=== PATIENT | female | born 1935 | race African-American/Black ===

== ENCOUNTER 2018-08-01 19:45 | Emergency (ER) | payer OTHER, BC ==
[2018-08-01 20:00] VITALS: BP 143/69
[2018-08-01] MEDS ORDERED: Albuterol/Ipratropium NEB.SOL* Albuterol 2.5 MG/Ipratropium 0.5 MG 3 ML INH ONE (20:10)
--- NOTE | 2018-08-01 20:31 | UC ---
Shortness of Breath HPI - HPI Summary HPI Summary: 82-year-old female with history of atrial fibrillation and parathyroid disease presents with dyspnea since yesterday. She states that her shortness of breath gets worse with exertion and her daughter has noticed some wheezing. She denies any significant cough or fever. She has had peripheral edema as of late. She is new to the area and has had her most recent medical care in [place] with her parathyroid surgery at [facility]. He does give a history for allergies and possibly "a touch of asthma." She denies any COPD. 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 - Allergy/Home Medications Allergies/Adverse Reactions: Allergies Allergy/AdvReac Type Severity Reaction Status Date / Time No Known Allergies Allergy Verified 08/01/18 20:00 Home Medications: Home Medications Amlodipine Besylate [Norvasc] 10 mg PO DAILY 08/01/18 [History Confirmed ] Aspirin 81 mg CHEW TAB* [Aspirin Low Dose TAB*] 81 mg PO DAILY 08/01/18 [ History Confirmed 08/01/18] Atorvastatin* [Lipitor*] 40 mg PO QPM 08/01/18 [History Confirmed 08/01/18] Calcium Carbonate CHEW TAB* [Tums*] 1,000 mg PO BID PRN 08/01/18 [History Confirmed 08/01/18] Metoprolol Tartrate TAB* [Lopressor TAB*] 25 mg PO BID 08/01/18 [History Confirmed 08/01/18] hydrALAZINE TAB* [Apresoline TAB*] 25 mg PO TID 08/01/18 [History Confirmed 08/14] PMH/Surg Hx/FS Hx/Imm Hx Endocrine History: Thyroid Disease Cardiovascular History: Cardiac Disease, Atrial Fibrillation Respiratory History: Asthma - Surgical History Surgical History: Yes Surgery Procedure, Year, and Place: hernia repair - Family History Known Family History: Positive: Non-Contributory - Social History Occupation: Retired Lives: With Family Alcohol Use: None Substance Use Type: None Smoking Status (MU): Never Smoked Tobacco Review of Systems All Other Systems Reviewed And Are Negative: Yes Constitutional: Negative: Fever ENT: Positive: Negative Respiratory: Positive: Shortness Of Breath Cardiovascular: Negative: Palpitations, Chest Pain Gastrointestinal: Positive: Negative Musculoskeletal: Positive: Edema Neurological: Positive: Negative Physical Exam Triage Information Reviewed: Yes Appearance: Other: - mild distress Vital Signs: Initial Vital Signs Temp 98.3 F 08/01/18 19:53 Pulse 88 08/01/18 19:53 Resp 28 08/01/18 19:53 BP 143/69 08/01/18 19:53 Pulse Ox 94 08/01/18 19:53 Vital Signs Reviewed: Yes Eyes: Positive: Conjunctiva Clear ENT: Positive: Hearing grossly normal, Pharynx normal. Negative: Nasal drainage Neck: Positive: Nontender, No Lymphadenopathy, Other: - no JVD Respiratory: Positive: Other: - tachypnea, diminished R base Cardiovascular: Positive: Other: - irregularly irregular, no murmur. Heart sounds heart throughout the chest but not muffled. Abdomen Description: Positive: Nontender, Soft Musculoskeletal: Positive: ROM Intact, Edema @ - 2+ shayan LE Neurological Exam: Normal Psychological Exam: Normal Skin Exam: Normal Diagnostics - Radiology CXR Radiology Interpretation Completed By: ED Physician - significant cardiomegaly and R basilar mass/infiltrate Shortness of Breath Dx - Course Course Of Treatment: Patient with tachypnea and decreased right basilar heart sounds. X-ray shows cardiomegaly and mass versus infiltrate in the right chest. Patient will require care beyond the urgent care and will be sent to the emergency department they wish to travel by private vehicle. I spoke with the ER attending and the charge nurse who are expecting the patient. - Differential Dx/Diagnosis Differential Diagnosis/HQI/PQRI: CHF, COPD Exacerbation, [place], Pneumonia, Pneumothorax, Pulmonary Embolism, Pulmonary Edema Provider Diagnosis: Dyspnea, Cardiomegaly, Chest mass - Physician Notification/Consults Discussed Patient Care With: Darrel Ho - accepts care to ED. Charge nurse Machelle brewer. Discharge - Sign-Out/Discharge Documenting (check all that apply): Patient Departure All imaging exams completed and their final reports reviewed: No - Discharge Plan Condition: Stable Disposition: HOME-RECOMMEND TO ED Patient Education Materials: Dyspnea (ED) Referrals: No Primary Care Phys,NOPCP [Primary Care Provider] - Additional Instructions: Go directly to the ER. Dr Ho is expecting you. - Billing Disposition and Condition Condition: STABLE Disposition: Home-Recommend to ED
--- NOTE | 2018-08-02 10:13 | UC ---
- Progress Note Progress Note: CXR: IMPRESSION: 1. ENLARGED CARDIAC SILHOUETTE WHICH CORRELATES WITH CARDIOMEGALY AND A PERICARDIAL EFFUSION ON THE CT STUDY. 2. SMALL BILATERAL PLEURAL EFFUSIONS. No change in plan of care. Pt went to ED and was admitted Course/Dx - Diagnoses Provider Diagnoses: Dyspnea, Cardiomegaly, Chest mass Discharge - Sign-Out/Discharge Documenting (check all that apply): Post-Discharge Follow Up All imaging exams completed and their final reports reviewed: Yes - Discharge Plan Condition: Stable Disposition: HOME-RECOMMEND TO ED Patient Education Materials: Dyspnea (ED) Referrals: No Primary Care Phys,NOPCP [Primary Care Provider] - Additional Instructions: Go directly to the ER. Dr Ho is expecting you. - Billing Disposition and Condition Condition: STABLE Disposition: Home-Recommend to ED
== END 2018-08-01 20:28 | disposition home health service (06) ==
LOC: EDBD → UCEAST 19:45
DX: R06.00 Dyspnea, unspecified (principal); I51.7 Cardiomegaly; R22.2 Localized swelling, mass and lump, trunk; Z79.82 Long term (current) use of aspirin; I31.3 Pericardial effusion (noninflammatory); I48.91 Unspecified atrial fibrillation; E03.9 Hypothyroidism, unspecified; J90 Pleural effusion, not elsewhere classified
CPT/HCPCS: 71046; 99202; G0463

== ENCOUNTER 2018-08-01 20:52 | Observation (INO) | payer BC, OTHER ==
[2018-08-01 22:04] LABS: ABS Eosinophils 0.1 10^3/ul (0-0.6); ABS Monocytes 0.5 10^3/ul (0-0.8); ABS Neutrophils 3.8 10^3/ul (1.5-7.7); Eosinophil % 1.9 %; Hematocrit 38 % (35-47); Hemoglobin 12.1 g/dL (12.0-16.0); Lymphocyte % 18.4 %; Mean Corpuscular HGB Conc 32 g/dL (31-36); Mean Corpuscular Hemoglobin 26 pg (27-31); Mean Corpuscular Volume 81 fL (80-97); Mean Platelet Volume 7.4 fL (7.4-10.4); Platelet Count 214 10^3/uL (150-450); Red Blood Count 4.73 10^6 /uL (3.70-4.87); Red Cell Distribution Width 18 % (10-15); White Blood Count 5.4 10^3/uL (3.5-10.8)
[2018-08-01 22:12] LABS: Albumin 4.4 g/dL (3.2-5.2); Albumin/Globulin Ratio 1.4 (1-3); BUN/Creatinine Ratio 20.2 (8-20); Calcium 10.7 mg/dL (8.6-10.3); EGFR African American 61.1 (>60); EGFR Non-African American 50.5 (>60); Globulin 3.1 g/dL (2-4); Potassium 3.8 mmol/L (3.5-5.0); Total Bilirubin 1.2 mg/dL (0.2-1.0); Total Protein 7.5 g/dL (6.4-8.9)
[2018-08-01 22:14] LABS: Troponin I 0.01 ng/mL (<0.04)
[2018-08-01 22:58] LABS: C Reactive Protein 1.64 mg/L (<8.01)
[2018-08-01] MEDS ORDERED: Iodixanol* (CONTRAST) 320 MG/ML 100 ML SDV IV ONE (23:08)
--- NOTE | 2018-08-01 23:08 | ED ---
Shortness of Breath - HPI Summary HPI Summary: 82-year-old female presents with shortness of breath since yesterday. She states that is intermittent. Symptoms are worse when she ambulates. She does have a history of A. fib and was on Coumadin until she had surgery in June on her parathyroid. She never restarted the Coumadin. She denies any palpitations. No chest pain. She states she has been having occasional wheezing. She has been using her inhaler with some relief. She states that she has chronic edema in her legs are unchanged. She wears compression socks. She denies any increase weight. Shortness of breath does not change with positional changes. She states she's never had this before. Denies any cough. - History of Current Complaint Chief Complaint: EDShortnessOfBreath Time Seen by Provider: 08/01/18 22:37 - Allergy/Home Medications Allergies/Adverse Reactions: Allergies Allergy/AdvReac Type Severity Reaction Status Date / Time Tetracyclines Allergy Unknown Verified 08/01/18 20:59 Reaction Details PMH/Surg Hx/FS Hx/Imm Hx Endocrine/Hematology History: 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 Denies: Hx Diabetes Cardiovascular History: Reports: Hx Hypertension Respiratory History: Denies: Hx Chronic Obstructive Pulmonary Disease (COPD) - Surgical History Surgery Procedure, Year, and Place: hernia repair Infectious Disease History: No Infectious Disease History: Denies: Hx Hepatitis, Traveled Outside the [place] in Last 30 Days - Family History Known Family History: Positive: Non-Contributory - Social History Alcohol Use: None Substance Use Type: Reports: None Smoking Status (MU): Never Smoked Tobacco Review of Systems Negative: Fever Negative: Chest Pain Positive: Shortness Of Breath. Negative: Cough Negative: Abdominal Pain All Other Systems Reviewed And Are Negative: Yes Physical Exam Triage Information Reviewed: Yes Vital Signs On Initial Exam: Initial Vitals Temp Pulse Resp BP Pulse Ox 98.0 F 90 16 132/74 95 08/01/18 20:55 08/01/18 20:55 08/01/18 20:55 08/01/18 20:55 08/01/18 20:55 Vital Signs Reviewed: Yes Appearance: Positive: Well-Appearing Skin: Positive: Warm, Dry Head/Face: Positive: Normal Head/Face Inspection Eyes: Positive: Normal, Conjunctiva Clear ENT: Positive: Pharynx normal Respiratory/Lung Sounds: Positive: Clear to Auscultation, Breath Sounds Present Cardiovascular: Positive: Normal, RRR Abdomen Description: Positive: Nontender, Soft Bowel Sounds: Positive: Present Musculoskeletal: Positive: Normal Neurological: Positive: Normal Psychiatric: Positive: Normal Diagnostics - Vital Signs Vital Signs Temp Pulse Resp BP Pulse Ox 08/01/18 20:55 98.0 F 90 16 132/74 95 - Laboratory Lab Results: Lab Results 08/01/18 08/01/18 08/01/18 Range/Units 21:44 21:44 21:44 WBC 5.4 (3.5-10.8) 10^3/uL RBC 4.73 (3.70-4.87) 10^6 /uL Hgb 12.1 (12.0-16.0) g/dL Hct 38 (35-47) % MCV 81 (80-97) fL MCH 26 L (27-31) pg MCHC 32 (31-36) g/dL RDW 18 H (10-15) % Plt Count 214 (150-450) 10^3/uL MPV 7.4 (7.4-10.4) fL Neut % (Auto) 69.1 % Lymph % (Auto) 18.4 % [place] % (Auto) 9.7 % Eos % (Auto) 1.9 % Baso % (Auto) 0.9 % Absolute Neuts (auto) 3.8 (1.5-7.7) 10^3/ul Absolute Lymphs (auto) 1.0 (1.0-4.8) 10^3/ul Absolute Monos (auto) 0.5 (0-0.8) 10^3/ul Absolute Eos (auto) 0.1 (0-0.6) 10^3/ul Absolute Basos (auto) 0.0 (0-0.2) 10^3/ul Absolute Nucleated RBC 0.0 10^3/ul Nucleated RBC % 0.0 D-Dimer, Quantitative (Less Than 230) ng/mL Sodium 141 (135-145) mmol/L Potassium 3.8 (3.5-5.0) mmol/L Chloride 106 (101-111) mmol/L Carbon Dioxide 28 (22-32) mmol/L Anion Gap 7 (2-11) mmol/L BUN 21 (6-24) mg/dL Creatinine 1.04 H (0.51-0.95) mg/dL Est GFR ( Amer) 61.1 (>60) Est GFR (Non-Af Amer) 50.5 (>60) BUN/Creatinine Ratio 20.2 H (8-20) Glucose 96 (70-100) mg/dL Lactic Acid 1.4 (0.5-2.0) mmol/L Calcium 10.7 H (8.6-10.3) mg/dL Total Bilirubin 1.20 H (0.2-1.0) mg/dL AST 26 (13-39) U/L ALT 22 (7-52) U/L Alkaline Phosphatase 96 (34-104) U/L Troponin I 0.01 (<0.04) ng/mL C-Reactive Protein 1.64 (<8.01) mg/L B-Natriuretic Peptide (<=100) pg/mL Total Protein 7.5 (6.4-8.9) g/dL Albumin 4.4 (3.2-5.2) g/dL Globulin 3.1 (2-4) g/dL Albumin/Globulin Ratio 1.4 (1-3) 08/01/18 08/01/18 Range/Units 21:44 21:44 WBC (3.5-10.8) 10^3/uL RBC (3.70-4.87) 10^6 /uL Hgb (12.0-16.0) g/dL Hct (35-47) % MCV (80-97) fL MCH (27-31) pg MCHC (31-36) g/dL RDW (10-15) % Plt Count (150-450) 10^3/uL MPV (7.4-10.4) fL Neut % (Auto) % Lymph % (Auto) % [place] % (Auto) % Eos % (Auto) % Baso % (Auto) % Absolute Neuts (auto) (1.5-7.7) 10^3/ul Absolute Lymphs (auto) (1.0-4.8) 10^3/ul Absolute Monos (auto) (0-0.8) 10^3/ul Absolute Eos (auto) (0-0.6) 10^3/ul Absolute Basos (auto) (0-0.2) 10^3/ul Absolute Nucleated RBC 10^3/ul Nucleated RBC % D-Dimer, Quantitative 594 H (Less Than 230) ng/mL Sodium (135-145) mmol/L Potassium (3.5-5.0) mmol/L Chloride (101-111) mmol/L Carbon Dioxide (22-32) mmol/L Anion Gap (2-11) mmol/L BUN (6-24) mg/dL Creatinine (0.51-0.95) mg/dL Est GFR ( Amer) (>60) Est GFR (Non-Af Amer) (>60) BUN/Creatinine Ratio (8-20) Glucose (70-100) mg/dL Lactic Acid (0.5-2.0) mmol/L Calcium (8.6-10.3) mg/dL Total Bilirubin (0.2-1.0) mg/dL AST (13-39) U/L ALT (7-52) U/L Alkaline Phosphatase (34-104) U/L Troponin I (<0.04) ng/mL C-Reactive Protein (<8.01) mg/L B-Natriuretic Peptide 467 H (<=100) pg/mL Total Protein (6.4-8.9) g/dL Albumin (3.2-5.2) g/dL Globulin (2-4) g/dL Albumin/Globulin Ratio (1-3) Result Diagrams: 08/01/18 21:44 08/01/18 21:44 Lab Statement: Any lab studies that have been ordered have been reviewed, and results considered in the medical decision making process. - CT cta CT Interpretation Completed By: Radiologist Summary of CT Findings: IMPRESSION: 1. Cardiomegaly with abnormal enlargement of both the right and left atria. 2. Pericardial effusion measuring approximately 2.8 cm in thickness by the. right atria. 3. No acute pulmonary embolic disease. - EKG No standard instances Cardiac Rate: NL EKG Rhythm: Atrial Fibrillation Summary of EKG Findings: atrial fibrillation Re-Evaluation - Re-Evaluation First Eval Re-Evaluation Time: 23:33 Comment: denies being short of breath currently Second Eval Re-Evaluation Time: 01:30 Comment: discussed results Third Eval Re-Evaluation Time: 02:03 Comment: o2 stats drop when sleeps so will apply some oxygen Course/Dx - Course Course Of Treatment: 82-year-old female presents with shortness of breath since yesterday. She states that is intermittent. Symptoms are worse when she ambulates. She does have a history of A. fib and was on Coumadin until she had surgery in June on her parathyroid. She never restarted the Coumadin. She denies any palpitations. No chest pain. She states she has been having occasional wheezing. She has been using her inhaler with some relief. She states that she has chronic edema in her legs are unchanged. She wears compression socks. She denies any increase weight. Shortness of breath does not change with positional changes. She states she's never had this before. Denies any cough. On exam lungs clear to auscultation. Irregular heart rate noted. EKG shows A. fib. wbc normal. Troponin 0.01. BMP is 467. D-dimer is elevated. CTA shows large pericardial effusion measuring 2.8 cm by the right atria. she has no JVD. dr rodriguez did bedside ultrasound and showed effusion. spoke with dr barrera and he states that patient can be admitted here for echo and treatment in [facility] current signs of cardiac tamponade. dr mckeon agrees to admit. - Diagnoses Differential Diagnosis/HQI/PQRI: Positive: CHF, Pulmonary Embolism, Pulmonary Edema Provider Diagnoses: Pericardial effusion, Dyspnea, Cardiomegaly - Critical Care Time Critical Care Time: 30-74 min - 50 mins Discharge - Sign-Out/Discharge Documenting (check all that apply): Patient Departure - Discharge Plan Condition: Stable Disposition: ADMITTED TO [facility] Referrals: No Primary Care Phys,NOPCP [Primary Care Provider] - - Billing Disposition and Condition Condition: STABLE Disposition: Admitted to [facility]
[2018-08-01] MEDS ORDERED: Furosemide IV* 10 MG/ML VIAL (40 MG) IV SLOW PU ONE (23:33)
[2018-08-02] MEDS ORDERED: Metoprolol Tartrate TAB* 25 MG PO ONE (00:23)
[2018-08-02] MEDS ORDERED: Calcium Carbonate CHEW TAB* 500 MG (TUMS) PO PRN (03:09)
[2018-08-02] MEDS ORDERED: Ondansetron INJ* 2 MG/ML VIAL IV PRN (03:10)
[2018-08-02] MEDS ORDERED: NS 0.9% 1000 ML** 1,000 ML IV SCH (03:15)
[2018-08-02 03:41] LABS: TSH (Thyroid Stimulating Horm) 3.56 mcIU/mL (0.34-5.60)
[2018-08-02 04:07] LABS: Activated Partial Thrombo Time 36.1 seconds (26.0-38.0); INR 1.03 (0.82-1.09)
--- NOTE | 2018-08-02 05:34 | HP ---
ADMISSION HISTORY AND PHYSICAL: DATE OF ADMISSION: 08/02/18 PRIMARY CARE PROVIDER: None. Will be establishing with [facility], recently moved from [place] trying to ascertain the name of her previous primary care physician. We will obtain medical records, but unavailable this evening. HEALTH CARE PROXY: Is her daughter. CODE STATUS: Full. SOURCE OF INFORMATION: History obtained from interview with the patient and her daughter. RELIABILITY: Fair. CHIEF COMPLAINT: Shortness of breath. HISTORY OF PRESENT ILLNESS: This is an 82-year-old female with past medical history includes atrial fibrillation as well as hyperparathyroidism, CAD, some memory impairment recently moved from [place] to [place] had been feeling well day prior to presentation, however, today started noticing increased dyspnea on exertion, becoming short of breath with 20 to 30 steps. Her daughter saw her today, thought her breathing looked heavy and was not getting "enough oxygen" and brought her to the emergency room. The patient denied any chest pain, nausea, fevers, or chills. She did endorse rhinorrhea for the last several days in the absence of sore throat, cough, or sick contacts. She has had no dental work, recent surgeries, or changes in her medications. She is on aspirin, however, no other blood thinners, although note she was on Coumadin, was taken off in March 2018 after a single fall. No fevers or chills recently or other indication of infection. PAST MEDICAL HISTORY: Includes: 1. Atrial fibrillation, not on anticoagulation status post a fall. 2. Asthma. 3. Hyperparathyroidism, status post parathyroidectomy. 4. Hypertension. 5. Hyperlipidemia. 6. CKD. 7. CAD. 8. GERD. 9. TIA. 10. Hypercalcemia, status post parathyroidectomy. 11. Impaired memory. 12. Thrombocytopenia. 13. History of also hernia repair. HOME MEDICATIONS: The patient brought her medications, reviewed in room: 1. Hydralazine 25 mg 3 times daily. 2. Metoprolol tartrate 25 mg twice daily. 3. Calcium carbonate 1000 mg twice daily as needed. 4. Atorvastatin 40 mg in the evening. 5. Aspirin 81 mg daily. 6. Amlodipine 10 mg daily. ALLERGIES: TETRACYCLINES. FAMILY HISTORY: Mother had "heart problems." SOCIAL HISTORY: Never tobacco. No alcohol. REVIEW OF SYSTEMS: As per HPI, otherwise all other systems negative. PHYSICAL EXAMINATION GENERAL: Well-appearing 82-year-old female, moderately tired at 3 a.m., however , interactive, easy to wake, pleasant. VITAL SIGNS: In the emergency room, 130/90, heart rate range between 94 and 123 and 95 when seen by this author, respiratory rate 19. She was 96% on 2 L, 93% on room air, T-max is 98 degrees Fahrenheit. HEENT: Oropharynx is clear. She has moist mucous membranes. Her sclerae are anicteric. She has a palatine tonsil. NECK: She does have elevated JVD to the angle of her ear. No cervical or supraclavicular lymphadenopathy. LUNGS: Clear throughout. HEART: She has irregularly irregular heart rate with soft 2/6 systolic ejection murmur. ABDOMEN: Soft, nontender, nondistended. EXTREMITIES: Warm and well perfused. She has 1+ bilateral pitting edema, up to approximately 8 inches about her ankle. NEUROLOGIC: She is alert and oriented x3. She has no apparent anxiety, agitation, or depression. DIAGNOSTIC STUDIES/LAB DATA: Her labs were reviewed, notable for white blood cell count of 5.4, platelets 214, hemoglobin 12.1. Her D-dimer is 594. BUN 29 , creatinine 1.0. Total bilirubin 1.2. Calcium 10.7. BNP 467, troponin I 0.01. Data reviewed. EKG is low voltage in leads, atrial fibrillation, left axis, late R- wave progression. No ST or T wave changes. CTA of her chest and thorax, impression: Cardiomegaly with abnormal enlargement of both the right and left atria. Paracardial effusion measuring approximately 2.8 cm with a thickness by the right atria and no acute pulmonary embolic disease. ASSESSMENT AND PLAN: This is an 82-year-old female presenting with new onset shortness of breath in the last 24 hours with pericardial effusion. 1. Shortness of breath/dyspnea on exertion. Lungs are clear. No evidence for consolidation other than minimal atelectasis on CTA. No history of chronic obstructive pulmonary disease, metabolic abnormalities. All in support that effusion identified on CT etiology for dyspnea on exertion. Bedside echo was reportedly performed in the ED confirming effusion. Formal echo ordered for tomorrow. LEATHA Han discussed care with Dr. Esquivel. Remainder of plan as below. 2. Pericardial effusion. No evidence of myocardial infarction. Add on TSH especially in the setting of hyperparathyroidism, unclear thyroid function underlying. Official transthoracic echocardiogram as indicated above. Check PT /PTT. Remain n.p.o. until a.m. Holding Norvasc and hydralazine. 75 cc of fluid overnight. 3. Atrial fibrillation, not on anticoagulation secondary to a solitary fall. We will continue metoprolol. 4. Hypertension. Continue metoprolol, holding Norvasc and hydralazine. 5. DVT prophylaxis: SCDs, should the patient receive procedure tomorrow regarding her pericardial effusion. [id number] #: [id number] ARNAV
--- NOTE | 2018-08-02 08:33 | CONSULT ---
Subjective Date of Service: 08/02/18 Interval History: DATE OF ADMISSION: 08/02/18 Date of consult 08/02/2018 PCP: none currently, Will be establishing with [facility] ([facility]) Service: Hospitalist CC: Dyspnea reason for consult: pericardial effusion seen on CT scan HISTORY OF PRESENT ILLNESS: 82-year-old woman with a history as below. Patient admitted with dyspnea on exertion and was brought to ER by her daughter. There was no chest pain. She had a CT scan showing what was felt to be a 2.8 cm pericardial effusion and cardiology was consulted regarding this. She is comfortable laying on her back without dyspnea with nasal canula in place. There has been no palpitations or syncope for her account. She does have evidence of memory deficit. Her family members are not currently available to corroborate history. PAST MEDICAL HISTORY: Includes: 1. Atrial fibrillation, not on anticoagulation (coumadin) status post a fal 2018 2. Asthma. 3. Hyperparathyroidism, status post parathyroidectomy. 4. Hypertension. 5. Hyperlipidemia. 6. CKD. 7. CAD, details uncertain 8. GERD. 9. TIA. 10. Hypercalcemia, status post parathyroidectomy. 11. Impaired memory. 12. Thrombocytopenia. 13. History of also hernia repair. HOME MEDICATIONS: 1. Hydralazine 25 mg 3 times daily. 2. Metoprolol tartrate 25 mg twice daily. 3. Calcium carbonate 1000 mg twice daily as needed. 4. Atorvastatin 40 mg in the evening. 5. Aspirin 81 mg daily. 6. Amlodipine 10 mg daily. ALLERGIES: TETRACYCLINES. FAMILY HISTORY: Mother had "heart problems." SOCIAL HISTORY: Never tobacco. No alcohol. Medications Active Medications: Aspirin (Aspirin 81 Mg Chew Tab*) 81 mg PO DAILY [facility] Calcium Carbonate (Tums*) 1,000 mg PO BID PRN PRN Reason: INDIGESTION Sodium Chloride (Ns 0.9% 1000 Ml) 1,000 mls @ 75 mls/hr IV PER RATE [facility] Last Admin: 08/02/18 04:45 Dose: 75 mls/hr Ondansetron HCl (Zofran Inj*) 4 mg IV Q4H PRN PRN Reason: NAUSEA/VOMITING Home Medications: Amlodipine Besylate [Norvasc] 10 mg PO DAILY 08/01/18 [History Confirmed ] Aspirin 81 mg CHEW TAB* [Aspirin Low Dose TAB*] 81 mg PO DAILY 08/01/18 [ History Confirmed 08/01/18] Atorvastatin* [Lipitor*] 40 mg PO QPM 08/01/18 [History Confirmed 08/01/18] Calcium Carbonate CHEW TAB* [Tums*] 1,000 mg PO BID PRN 08/01/18 [History Confirmed 08/01/18] Metoprolol Tartrate TAB* [Lopressor TAB*] 25 mg PO BID 08/01/18 [History Confirmed 08/01/18] hydrALAZINE TAB* [Apresoline TAB*] 25 mg PO TID 08/01/18 [History Confirmed 08/14] Review of Systems - Measurements Intake and Output: Intake and Output Last 24 Hours 07/31/18 08/01/18 08/02/18 08/03/18 06:59 06:59 06:59 06:59 Intake Total 144 Balance 144 Weight 158 lb 1 oz Intake: IVPB 144 NS (0.9%) 144 Oral 0 - Review of Systems Constitutional Symptoms: Positive: Weakness, Fatigue Negative: Weight Gain, Weight Loss, Fever Dermatology: Negative: Rash, Skin Lesions HEENT: Negative: Change in Hearing, Vertigo Eyes: Negative: Change in Vision, Double Vision Thyroid: Negative: Thyroid Nodule, Cold Intolerance, Heat Intolerance Pulmonary: Positive: Wheezing, Shortness of Breath Negative: Sputum, Hemoptysis Cardiology: Positive: Shortness of Breath, Swelling of Ankles, Edema, Other Negative: Chest Pain, Palpitations, Faintness, Syncope, Claudication, Paroxysmal Nocturnal Dyspnea, Orthopnea Gastroenterology: Negative: Abdominal Pain, Nausea, Vomiting, Anorexia, Blood in Stools, Haematemesis, Melena Genital - Urinary: Negative: Hematuria, Polyuria, Nocturia Musculoskeletal: Negative: Joint Pain, Joint Stiffness, Arthritis, Osteoporosis, Low Back Pain , Sciatica, Joint Deformities, Kyphoscoliosis, Other Endocrinology: Negative: Obesity, Diabetes, Polydipsia, Polyuria Hematologic/Lymphatic: Positive: Use of Antiplatelet Drugs Negative: Use of Anticoagulant Neurology: Negative: Diplopia, Dizziness, Change in Speech, Change in Sphincter Function , Change in Walking, Hx of Stroke\\TIA, Hx Seizures Psychiatry: Negative: Unusual Anxiety, Suicidal Ideation Allergic/Immunologic: Negative: Hx HIV, Immunocompromise Review of Systems Statement: All other review of systems negative, unless stated above. Objective Vital Signs: Temp Pulse Resp BP Pulse Ox 98.4 F 83 18 129/70 90 08/02/18 04:15 08/02/18 04:15 08/02/18 04:15 08/02/18 04:15 08/02/18 04:15 Oxygen Devices in Use Now: Nasal Cannula Appearance: nad, pleasant Ears/Nose/Mouth/Throat: Clear Oropharnyx Neck: Trachea Midline, - - moderate jvd Respiratory: Symmetrical Chest Expansion and Respiratory Effort, - - crackles left base, decreased bs right base Cardiovascular: - - 2-3/6 systolic murmur LLSB, irregulalry irregular Abdominal: NL Sounds; No Tenderness; No Distention Extremities: - - 1+ edema Skin: - - awake and alert, evidence of memory loss. Laboratory Results: 08/01/18 21:44 08/01/18 21:44 INR (Anticoag Therapy) 1.03 (0.82-1.09) 08/02/18 03:52 APTT 36.1 seconds (26.0-38.0) 08/02/18 03:52 Total Bilirubin 1.20 mg/dL (0.2-1.0) H 08/01/18 21:44 AST 26 U/L (13-39) 08/01/18 21:44 ALT 22 U/L (7-52) 08/01/18 21:44 Alkaline Phosphatase 96 U/L (34-104) 08/01/18 21:44 B-Natriuretic Peptide 467 pg/mL (<=100) H 08/01/18 21:44 Total Protein 7.5 g/dL (6.4-8.9) 08/01/18 21:44 Albumin 4.4 g/dL (3.2-5.2) 08/01/18 21:44 Globulin 3.1 g/dL (2-4) 08/01/18 21:44 Albumin/Globulin Ratio 1.4 (1-3) 08/01/18 21:44 TSH 3.56 mcIU/mL (0.34-5.60) 08/01/18 21:44 08/01/18 21:44 Troponin I 0.01 Diagnostic Imaging: Exam Date: 08/01/[address] Angiography Chest With Contrast FINDINGS: Pulmonary arteries: No acute pulmonary embolic disease. Aorta: Atheromatous changes. No aortic aneurysm. No aortic dissection. Lungs: No pulmonary consolidation. Linear opacities within lung bases. These may represent areas of atelectasis and/or scarring. Pleural space: Small bilateral pleural effusion. No pneumothorax. Heart: Cardiac size is enlarged. Abnormally enlarged right and left atria. Severe coronary calcification. Pericardial effusion. Maximum width is next to the right atrium and measures 2.8 in thickness. Kidneys and ureters: Atrophy of the right kidney. Lymph nodes: Unremarkable. No enlarged lymph nodes. Bones/joints: Unremarkable. No acute fracture. Soft tissues: Unremarkable. IMPRESSION: 1. Cardiomegaly with abnormal enlargement of both the right and left atria. 2. Pericardial effusion measuring approximately 2.8 cm in thickness by the right atria. 3. No acute pulmonary embolic disease. Transthoracic Echocardiogram Study Date: 08/02/2018 Summary: 1. Left ventricle: The cavity size is normal. Wall thickness is normal. Systolic function is normal. The estimated ejection fraction is 60-65%. Wall motion is normal; there are no regional wall motion abnormalities. 2. Right ventricle: The cavity size is mildly dilated. Systolic function is normal. 3. Left atrium: The atrium is severely dilated. 4. Right atrium: The atrium is massively dilated. 5. Mitral valve: There is moderate regurgitation. , appears "atrial functional" related. 6. Aortic valve: The findings are consistent with very mild stenosis. 7. Tricuspid valve: There is severe regurgitation. 8. Pericardium, extracardiac: A small pericardial effusion is identified. There is no evidence of hemodynamic compromise. 9. Pulmonary arteries: Systolic pressure is severely increased. EKG Data: ekg on admission: coarse atrial fibrillation in the setting of atrial dilation, pvc, poor r wave progression Assessment/Plan 1. Acute decompensated HFpEF/Pulmonary HTN 2. Atrial fibrillation 3. Mitral regurgitation - Moderate, likely related to #2 ("atrial functional") 4. Pulmonary HTN - Likely group II 5. Severe TR - Secondary to #2 and #4 6. Small pericardial effusion - Likely from PH/HF - Other than prognostically, not clinically contributing to patients presentation 7. ? CAD - d/c IVF and start diet (ordered) - restart home metoprolol and hydralazine (ordered) - d/c norvasc for now - start lasix 20 mg po daily and spironolactone 25 mg po daily (ordered). Needs routine HF monitoring (i.e. daily weights, i/o's, daily bmp, etc) - patient tells me she never had a PCI or [place]. I recommend to confirm this with family. If this is the case I would change her aspirin to off label (only 1 of 3 criteria) low dose eliquis 2.5 mg po bid. - Needs BMP 1 week after discharge Thank you for allowing me to participate in the cardiovascular care of this patient. Please do not hesitate to contact me with questions or concerns.
[2018-08-02] MEDS ORDERED: Metoprolol Tartrate TAB* 25 MG PO SCH (09:00)
[2018-08-02] MEDS: hydrALAZINE TAB* 25 MG PO SCH ×3 (09:13→20:09)
[2018-08-02] MEDS: Aspirin 81 mg CHEW TAB* 81 MG TAB.CHEW PO SCH (09:13)
[2018-08-02] MEDS: Metoprolol Tartrate TAB* 25 MG PO SCH ×2 (09:13→20:09)
--- NOTE | 2018-08-02 10:23 | ECHO ---
*[facility]* [place] [address] Fax #: [phone] Transthoracic Echocardiogram Patient: Sofi, Height: 67 in / Nirali 170.2 cm : 1935 Weight: 139.7 lb / Study Date: 08/02/2018 63.5 kg Age: 82 BP: 129 / 70 Gender: F BMI/BSA: 21.9 kg/m^2 HR: 81 bpm / 1.74 m^2 *[employer] Tender: * Beth Galloway RDCS RN *Referring Physician: * Song Abraham *Reading Physician: * Lizandro Esquivel MD Indications: Pericardial Effusion. History: Atrial fibrillation. Transient ischemic attack. Asthma. Risk factors: Hypertension. Dyslipidemia. Conclusions Summary: 1. Left ventricle: The cavity size is normal. Wall thickness is normal. Systolic function is normal. The estimated ejection fraction is 60-65%. Wall motion is normal; there are no regional wall motion abnormalities. 2. Right ventricle: The cavity size is mildly dilated. Systolic function is normal. 3. Left atrium: The atrium is severely dilated. 4. Right atrium: The atrium is massively dilated. 5. Mitral valve: There is moderate regurgitation. , appears "atrial functional" related. 6. Aortic valve: The findings are consistent with very mild stenosis. 7. Tricuspid valve: There is severe regurgitation. 8. Pericardium, extracardiac: A small pericardial effusion is identified. There is no evidence of hemodynamic compromise. 9. Pulmonary arteries: Systolic pressure is severely increased. Recommendations: None prior for comparison at time of interpretation Study data: Transthoracic echocardiogram. Procedure: Transthoracic echocardiography was performed. Image quality was good. Complete 2D, spectral Doppler, and color flow Doppler. Patient status: Inpatient. Patient room number: 446-02. Rhythm: Atrial fibrillation. Findings Left ventricle: The cavity size is normal. Wall thickness is normal. Systolic function is normal. The estimated ejection fraction is 60-65%. Wall motion is normal; there are no regional wall motion abnormalities. Left ventricular diastolic function parameters are indeterminate. Right ventricle: The cavity size is mildly dilated. Systolic function is normal. Left atrium: The atrium is severely dilated. Right atrium: The atrium is massively dilated. Mitral valve: The leaflets are mildly thickened. There is no evidence of stenosis. There is moderate regurgitation. Aortic valve: The valve is trileaflet. The leaflets are mildly thickened. Left coronary cusp mobility is mildly restricted. The findings are consistent with very mild stenosis. There is mild regurgitation. Tricuspid valve: The valve is structurally normal. There is no evidence of stenosis. There is severe regurgitation. Hepatic estephania flow reversal is present Pulmonic valve: The valve is structurally normal. There is no evidence of stenosis. There is mild regurgitation. Aorta: Aortic root: The aortic root is not dilated. Ascending aorta: The ascending aorta is mildly dilated. Aortic arch: The aortic arch is not visualized. Pericardium: A small pericardial effusion is identified. There is no evidence of hemodynamic compromise. Pulmonary arteries: The main pulmonary artery is normal-sized. Systolic pressure is severely increased. Systemic veins: Inferior vena cava: The vessel is dilated. Respirophasic changes in dimension are absent. Measurements Left ventricle Value Ref Aortic valve continued Value Ref BROOKE, LAX 4.6 cm 3.8 - [place] diam/bsa, ED 1.1 cm/m^2 ----- 5.2 Peak v, S 1.84 m/sec ----- ESD, LAX 3.1 cm 2.2 - VTI, S 31.9 cm ----- 3.5 Mean grad, S 7.0 mm Hg ----- FS, LAX 34 % 27 - 45 Peak grad, S 14.0 mm Hg ----- PW, ED, LAX (H) 1.0 cm 0.6 - LVOT/AV, VTI ratio 0.61 ----- 0.9 KYAW, VTI 1.90 cm^2 ----- IVS/PW, ED 1.04 -------- KYAW, Vmax 1.70 cm^2 ----- E', lat [place]ak[place], TDI 10.3 cm/sec >=10.0 AR peak v 4.35 m/sec ----- E/e', lat [place], TDI 16 -------- AR PHT 515 ms --- -- E', med [place], TDI 11.0 cm/sec >=7.0 AR peak grad 76 mm Hg ----- E/e', med [place], TDI 15 -------- E', avg, TDI 10.7 cm/sec -------- Mitral valve Value Ref E/e', avg, TDI (H) 15 <=14 Peak E 1.6 m/sec ----- Decel time 165 ms ----- LVOT Value Ref Peak grad, D 10.0 mm Hg ----- Diam, S 2.00 cm -------- ERO, PISA 0.16 cm^2 ----- Area 3.1 cm^2 -------- MR vol, PISA 16 ml ----- Peak issac, S 0.98 m/sec -------- MR fraction, PISA 21 % ----- VTI, S 19.4 cm -------- Mean grad, S 2 mm Hg -------- Pulmonic valve Value Ref SV 61 ml -------- Peak v, S 0.78 m/sec ----- Peak grad, S 2.0 mm Hg ----- Ventricular septum Value Ref IVS, ED (H) 1.1 cm 0.6 - Tricuspid valve Value Ref 0.9 TR peak v (H) 4 m/sec <=2.8 Peak RV-RA grad, S 64 mm Hg ----- Right ventricle Value Ref BROOKE minor ax, A4C (H) 4.6 cm 1.9 - Aortic root Value Ref mid 3.5 Root diam 3.3 cm <3.9 Pressure, S 61 mm Hg -------- Ascending aorta Value Ref Left atrium Value Ref AAo AP diam, S 3.6 cm ----- ML dim, A4C 5.7 cm -------- SI dim, A4C 6.9 cm -------- Pulmonary artery Value Ref Vol/bsa, ES, 1-p (H) 89 ml/m^2 11 - 40 Pressure, S 59.0 mm Hg ----- A4C Vol/bsa, ES, A/L (H) 82 ml/m^2 16 - 34 Inferior vena cava Value Ref Diam 2.8 cm ----- Right atrium Value Ref ML dim, ES, A4C (H) 5.8 cm 2.6 - 4.4 SI dim, ES, A4C (H) 6.9 cm 3.4 - 5.3 Estimated RAP 15 mm Hg -------- Aortic valve Value Ref [place] diam, ED 1.9 cm -------- Legend: (L) and (H) osbaldo values outside specified reference range. Prepared and electronically signed by Lizandro Esquivel MD 08/02/2018 10:22
[2018-08-02] MEDS: Furosemide TAB* 20 MG PO SCH (10:46)
--- NOTE | 2018-08-02 16:09 | PN ---
Subjective Date of Service: 08/02/18 Interval History: Pt has no complaints. Very forgetful. Remembers that she tok a plane from [place] to [place] recently, but unable to recall the date. she currently lives with her daughter who "is away today" Objective Active Medications: Aspirin (Aspirin 81 Mg Chew Tab*) 81 mg PO DAILY [facility] Last Admin: 08/02/18 09:13 Dose: 81 mg Calcium Carbonate (Tums*) 1,000 mg PO BID PRN PRN Reason: INDIGESTION Furosemide (Lasix Tab*) 20 mg PO DAILY [facility] Last Admin: 08/02/18 10:46 Dose: 20 mg Hydralazine HCl (Apresoline Tab*) 25 mg PO TID [facility] Last Admin: 08/02/18 14:15 Dose: 25 mg Metoprolol Tartrate (Lopressor Tab*) 25 mg PO BID [facility] Last Admin: 08/02/18 09:13 Dose: 25 mg Ondansetron HCl (Zofran Inj*) 4 mg IV Q4H PRN PRN Reason: NAUSEA/VOMITING Spironolactone (Aldactone Tab*) 25 mg PO DAILY [facility] Vital Signs - 8 hr 08/02/18 10:17 Temperature 98.3 F Pulse Rate 69 Respiratory 18 Rate Blood Pressure 118/69 (mmHg) O2 Sat by Pulse 92 Oximetry Oxygen Devices in Use Now: None Appearance: 82 yo F in nAD, AAOx2 Eyes: No Scleral Icterus, PERRLA Ears/Nose/Mouth/Throat: NL Teeth, Lips, Gums, Mucous Membranes Moist Neck: NL Appearance and Movements; NL JVP Respiratory: Symmetrical Chest Expansion and Respiratory Effort, Clear to Auscultation Cardiovascular: - - irregular Abdominal: NL Sounds; No Tenderness; No Distention Lymphatic: No Cervical Adenopathy Extremities: No Clubbing, Cyanosis, - - trce pedal edema b/l Skin: No Nodules or Sclerosis Neurological: NL Muscle Strength and Tone Result Diagrams: 08/01/18 21:44 08/01/18 21:44 Additional Lab and Data: Lab Results 08/01/18 08/01/18 08/01/18 Range/Units 21:44 21:44 21:44 WBC 5.4 (3.5-10.8) 10^3/uL RBC 4.73 (3.70-4.87) 10^6 /uL Hgb 12.1 (12.0-16.0) g/dL Hct 38 (35-47) % MCV 81 (80-97) fL MCH 26 L (27-31) pg MCHC 32 (31-36) g/dL RDW 18 H (10-15) % Plt Count 214 (150-450) 10^3/uL MPV 7.4 (7.4-10.4) fL Neut % (Auto) 69.1 % Lymph % (Auto) 18.4 % [place] % (Auto) 9.7 % Eos % (Auto) 1.9 % Baso % (Auto) 0.9 % Absolute Neuts (auto) 3.8 (1.5-7.7) 10^3/ul Absolute Lymphs (auto) 1.0 (1.0-4.8) 10^3/ul Absolute Monos (auto) 0.5 (0-0.8) 10^3/ul Absolute Eos (auto) 0.1 (0-0.6) 10^3/ul Absolute Basos (auto) 0.0 (0-0.2) 10^3/ul Absolute Nucleated RBC 0.0 10^3/ul Nucleated RBC % 0.0 D-Dimer, Quantitative (Less Than 230) ng/mL Sodium 141 (135-145) mmol/L Potassium 3.8 (3.5-5.0) mmol/L Chloride 106 (101-111) mmol/L Carbon Dioxide 28 (22-32) mmol/L Anion Gap 7 (2-11) mmol/L BUN 21 (6-24) mg/dL Creatinine 1.04 H (0.51-0.95) mg/dL Est GFR ( Amer) 61.1 (>60) Est GFR (Non-Af Amer) 50.5 (>60) BUN/Creatinine Ratio 20.2 H (8-20) Glucose 96 (70-100) mg/dL Lactic Acid 1.4 (0.5-2.0) mmol/L Calcium 10.7 H (8.6-10.3) mg/dL Total Bilirubin 1.20 H (0.2-1.0) mg/dL AST 26 (13-39) U/L ALT 22 (7-52) U/L Alkaline Phosphatase 96 (34-104) U/L Troponin I 0.01 (<0.04) ng/mL C-Reactive Protein 1.64 (<8.01) mg/L B-Natriuretic Peptide (<=100) pg/mL Total Protein 7.5 (6.4-8.9) g/dL Albumin 4.4 (3.2-5.2) g/dL Globulin 3.1 (2-4) g/dL Albumin/Globulin Ratio 1.4 (1-3) 08/01/18 08/01/18 Range/Units 21:44 21:44 WBC (3.5-10.8) 10^3/uL RBC (3.70-4.87) 10^6 /uL Hgb (12.0-16.0) g/dL Hct (35-47) % MCV (80-97) fL MCH (27-31) pg MCHC (31-36) g/dL RDW (10-15) % Plt Count (150-450) 10^3/uL MPV (7.4-10.4) fL Neut % (Auto) % Lymph % (Auto) % [place] % (Auto) % Eos % (Auto) % Baso % (Auto) % Absolute Neuts (auto) (1.5-7.7) 10^3/ul Absolute Lymphs (auto) (1.0-4.8) 10^3/ul Absolute Monos (auto) (0-0.8) 10^3/ul Absolute Eos (auto) (0-0.6) 10^3/ul Absolute Basos (auto) (0-0.2) 10^3/ul Absolute Nucleated RBC 10^3/ul Nucleated RBC % D-Dimer, Quantitative 594 H (Less Than 230) ng/mL Sodium (135-145) mmol/L Potassium (3.5-5.0) mmol/L Chloride (101-111) mmol/L Carbon Dioxide (22-32) mmol/L Anion Gap (2-11) mmol/L BUN (6-24) mg/dL Creatinine (0.51-0.95) mg/dL Est GFR ( Amer) (>60) Est GFR (Non-Af Amer) (>60) BUN/Creatinine Ratio (8-20) Glucose (70-100) mg/dL Lactic Acid (0.5-2.0) mmol/L Calcium (8.6-10.3) mg/dL Total Bilirubin (0.2-1.0) mg/dL AST (13-39) U/L ALT (7-52) U/L Alkaline Phosphatase (34-104) U/L Troponin I (<0.04) ng/mL C-Reactive Protein (<8.01) mg/L B-Natriuretic Peptide 467 H (<=100) pg/mL Total Protein (6.4-8.9) g/dL Albumin (3.2-5.2) g/dL Globulin (2-4) g/dL Albumin/Globulin Ratio (1-3) Assess/Plan/Problems-Billing Assessment: 82 yo f with h/o chronic a. fib (off Coumadin since March when she fell) presents with SOB - Patient Problems (1) SOB (shortness of breath) Comment: due to acute diastolic CHF (EF 65%) appreciate . Dr. Esquivel's consult: aldactone and Lasix started. Pt's 02 sat on RA 92% Percardial effusion was greatly overestimated on CT, it's "small " according to Echo, but pt has mod MR and severe TR (2) Chronic atrial fibrillation Comment: off anticoagulation after a fall cont lopressor for rate control (3) DVT prophylaxis Comment: HSQ Status and Disposition: OBV, d/c in AM
[2018-08-02] MEDS: Heparin VIAL(*) 5000 UNITS/ML VIAL (FIVE THOUSAND) SUBCUT SCH (22:02)
[2018-08-03] MEDS: Heparin VIAL(*) 5000 UNITS/ML VIAL (FIVE THOUSAND) SUBCUT SCH (05:37)
[2018-08-03 05:44] LABS: Calcium 9.3 mg/dL (8.6-10.3); EGFR African American 63.9 (>60); EGFR Non-African American 52.8 (>60); Potassium 3.2 mmol/L (3.5-5.0)
[2018-08-03] MEDS ORDERED: Potassium Chlor TAB* 20 MEQ TAB.ER PO ONE (07:48)
[2018-08-03] MEDS: Aspirin 81 mg CHEW TAB* 81 MG TAB.CHEW PO SCH (08:48)
[2018-08-03] MEDS: Metoprolol Tartrate TAB* 25 MG PO SCH (08:48)
[2018-08-03] MEDS: hydrALAZINE TAB* 25 MG PO SCH (08:48)
[2018-08-03] MEDS: Furosemide TAB* 20 MG PO SCH (08:48)
[2018-08-03] MEDS ORDERED: Spironolactone TAB* 25 MG PO SCH (09:00)
[2018-08-03] MEDS ORDERED: Magnesium Sulfate 1 GM IV* 1 GM/100 ML BAG IV ONE (09:43)
[2018-08-03 11:32] VITALS: BP 119/68
--- NOTE | 2018-08-03 13:39 | DS ---
CC: Dr. Lizandro Esquivel, Cardiology; [facility] DISCHARGE SUMMARY: DATE OF ADMISSION: 08/02/18 DATE OF DISCHARGE: 08/03/18 PRIMARY CARE PROVIDER: None locally, although the patient's family is planning to follow up with [facility]. DISCHARGE DIAGNOSIS: Dyspnea, likely related to acute diastolic congestive heart failure. SECONDARY DIAGNOSES: 1. History of atrial fibrillation, not on anticoagulation after a fall earlier this year. 2. Asthma. 3. Hyperparathyroidism, status post parathyroidectomy. 4. Hypertension. 5. Hyperlipidemia. 6. Chronic kidney disease. 7. Coronary artery disease. 8. Gastroesophageal reflux disease. 9. Transient ischemic attack. 10. Dementia. LABORATORY DATA AND STUDIES PERFORMED DURING THE HOSPITAL STAY: Included: White blood cell count of 5.4, hemoglobin is 12.1, hematocrit of 38, and platelets of 214. On 08/03/18, sodium of 141, potassium 3.2, chloride 109, carbon dioxide 26, BUN 14, creatinine 1.0. Transthoracic echocardiogram obtained on 08/02/18 showed EF of 60% to 65% with wall thickness of left ventricle normal. The right ventricle was slightly dilated and left atrium severely dilated as well as right atrium. The mitral valve was with moderate regurgitation, appears to be related to the dil atation. The aortic valve consistent with mild stenosis and tricuspid valve severe regurgitation. T here was small pericardial effusion identified with no evidence of hemodynamic compromise. Pulmonary arterial systolic pressure is severely increased. CT angiogram obtained on 08/01/18, impression: "Cardiomegaly with abnormal enlargement of both the r ight and left atria. Pericardial effusion measuring approximately 2.8 cm in thickness by right atriu m. No acute pulmonary embolic disease." CONSULTATIONS DURING THE HOSPITAL STAY: Included Dr. Esquivel from cardiology. HOSPITALIZATION COURSE: Nirali Farah is an 82-year-old female with history of dementia, who was jus t recently relocated from [place] to be closer with her family, who was brought in with dyspne a on exertion. For details of the patient's presentation, please see history and physical dictated ashlee Abraham. Shortly, the patient was admitted with concern of small volume pericardial effusion, b ut after cardiology consult and transthoracic echocardiogram, it was noted that the pericardial effus ion was overestimated by the CT. Echocardiogram showed only mild pericardial effusion. The patient was noted to have severe biatrial enlargement with functional tricuspid regurgitation and mitral regu rgitation. The patient is in chronic atrial fibrillation and anticoagulation was stopped due to fall s in the past. The patient was observed on telemetry monitored bed. She was noted to have acute karley stolic CHF and placed by Dr. Esquivel after cardiology consultation on Aldactone and Lasix with good re sults. Initially, she was mildly hypoxemic and required oxygen, but by the time of discharge, her ox ygen was weaned off and she was ambulating on room air with oxygen saturation above 90%. At this poi nt, she is ready to be discharged home. Recommendation to follow up with her primary care provider [facility] in approximately 7 days. The patient is also recommended to follow up with Dr. 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 The patient is recommended to continue on a cardiac diet. CONDITION ON DISCHARGE: Stable. DISPOSITION: Discharge to home under the care of her family. PHYSICAL EXAMINATION AT THE TIME OF DISCHARGE: Blood pressure of 119/68, heart rate of 70 and irregu lar, respiratory rate 18, oxygen saturation 94% on room air, temperature 97.6. General: The patient is a pleasant 82-year-old female who is rather a poor historian. The patient is alert and oriented x2. HEENT: Head: Atraumatic, normocephalic. Eyes: Pupils are equal and reactive to light and acco mmodation. Oropharynx clear. Mucosa moist. Neck: Supple. No JVD. No bruits bilaterally. Cardio vascular: Irregular rate and rhythm with 2/6 systolic ejection murmur noted on auscultation of the a pex. Respiratory: Clear to auscultation bilaterally. Abdomen: Soft, nontender. Bowel sounds pres ent in all 4 quadrants. Extremities: There is trace bilateral pitting pedal edema. Pulses are +2 b ilaterally. There is no clubbing or cyanosis. On neuro evaluation, grossly nonfocal. Cranial nerve s II through XII grossly intact. Motor strength is 5/5 bilaterally. Please also note that prior to discharge, the patient had an episode of 5 beats of ventricular tachyc ardia, which is likely related to the patient's hypokalemia that was replaced prior to discharge. Th e patient also is going to be placed on potassium supplement at discharge. Please note that this is a short summary of the patient's hospital stay. Please refer to further [facility] records for details. TIME SPENT: Approximately 45 minutes were spent on the patient's discharge. [id number]/[facility] #: [id number]
== END 2018-08-03 15:41 | disposition home or self-care (01) ==
LOC: ED 20:52 → MEDTELE 08-02 03:10 → INTOOBSV 08-02 03:10
PROVIDERS: ADMIT Internal Medicine; ATTEND Internal Medicine
DX: R06.00 Dyspnea, unspecified (principal); I48.91 Unspecified atrial fibrillation; J45.909 Unspecified asthma, uncomplicated; I27.20 Pulmonary hypertension, unspecified; E21.3 Hyperparathyroidism, unspecified; I10 Essential (primary) hypertension; E78.5 Hyperlipidemia, unspecified; N18.9 Chronic kidney disease, unspecified; I25.10 Atherosclerotic heart disease of native coronary artery without angina pectoris; K21.9 Gastro-esophageal reflux disease without esophagitis; G45.9 Transient cerebral ischemic attack, unspecified; F03.90 Unspecified dementia, unspecified severity, without behavioral disturbance, psychotic disturbance, mood disturbance, and anxiety; Z79.82 Long term (current) use of aspirin; R53.1 Weakness
CPT/HCPCS: 36415; 71275; 80048; 80053; 83605; 83735; 83880; 84443; 84484; 85025; 85379; 85610; 85730; 86140; 87040; 93005; 93306; 99285; A9270-GY; G0378; J1644; J1940; J3475; Q9967

== ENCOUNTER 2018-09-10 18:58 | Observation (INO) | payer MEDICARE, OTHER ==
--- OUTSIDE RECORDS SUMMARY | 2018-09-10 19:50 | XMS REPORT | Continuity of Care Document ---
:1935 External Reference #:[id number] Author Name Michael Jose MD Address [address] [place] [address] Care Team Providers Name Role Phone Michael Jose MD Care Team Information Barrel Cooper Unavailable Michael Jose MD Primary Care Physician Unavailable Payers Date Identification Numbers Payment Provider Subscriber Policy Number: [id number] [employer] Medicare Ppo Nirali Farah Group Number: [id number] [address] PayID: [id number] [place] [address] Family History Date Family Member(s) Observation Comments Father due to Natural Causes () Mother due to Natural Causes () Social History Type Date Description Comments Sex Unknown Marital Status Single . Lives With Daughter ETOH Use Denies alcohol use Tobacco Use Start: Unknown Nonsmoker Smoking Status Reviewed: 08/05/18 Nonsmoker Allergies, Adverse Reactions, Alerts Active Allergies Reaction Severity Comments Date Tetracycline Wheezing, vomiting 08/05/2018 Medications Active Medications SIG Qnty Indications Ordering Date Provider Deborah take one tablet 180tabs Michael Tadeo 08/05/2018 5mg Tablets by mouth twice MD Rebeca a day Furosemide 1 by mouth Unknown 20mg Tablets every day Potassium Chloride Erica 1 by mouth Unknown ER every day 20Meq Tablets ER Spironolactone 1 by mouth Unknown 25mg Tablets every day Metoprolol Tartrate take one tablet Unknown 25mg by mouth twice Tablets a day Atorvastatin Calcium 1 by mouth Unknown 40mg every day Tablets Caltrate 600+D3 Unknown [id number] Tablets History Medications Xarelto one po bid 180tabs Michael Tadeo 08/05/2018 - 2.5mg Tablets MD Rebeca 08/05/2018 Tums 2 by mouth Unknown - 500mg Chewtabs twice a day 09/03/2018 Aspirin 81 Low Dose 1 by mouth Unknown - every day 09/03/2018 81mg Chewtabs Hydralazine HCL take 1 tablet Unknown - 25mg by mouth 3 09/03/2018 Tablets times a day Vital Signs Date Vital Result Comment 09/04/2018 4:37pm BP Systolic 128 mmHg BP Diastolic 84 mmHg Heart Rate 90 /min Body Temperature 98.8 F Respiratory Rate 16 /min Weight 153.38 lb 08/08/2018 3:01pm BP Systolic 136 mmHg 130/70 after 10 minutes of sitting BP Diastolic 72 mmHg 130/70 after 10 minutes of sitting Heart Rate 80 /min Body Temperature 97.1 F Respiratory Rate 28 /min 08/05/2018 2:26pm BP Systolic 110 mmHg BP Diastolic 62 mmHg Heart Rate 60 /min Body Temperature 98.4 F Respiratory Rate 28 /min Height 68 inches 5'8" Weight 150.00 lb BMI (Body Mass Index) 22.8 kg/m2 Results Test Date Facility Test Result H/L Range Note Laboratory test 09/04/2018 [facility] Brain Natural 1380 pg/mL High <100 finding (607)- - Peptide Basic Metabolic 08/08/2018 [facility](fma) Sodium 142 mEq/L 134-149 Profile Potassium 4.4 mEq/L 3.6-5.5 Chloride 98 mEq/L 94-112 Carbon Dioxide 29 mEq/L 21-32 Glucose 109 mg/dL High 70-105 1 BUN 27 mg/dL High 6-26 2 Creatinine 1.2 mg/dL 0.6-1.4 BUN/Creat Ratio 22.5 CALC 8.0-36.0 Calcium 10.6 mg/dL High 8.6-10.2 3 GFR Non- 45 ml/min/1.73m^ Low >=60 GFR 55 ml/min/1.73m^ Low >=60 Laboratory test 08/08/2018 [facility] Brain Natural 562 pg/mL High < 100 finding (607)- - Peptide 1 RESULTS VERIFIED BY REPEAT ANALYSIS 2 RESULTS VERIFIED BY REPEAT ANALYSIS 3 consistent w/ previous results Encounters Type Date Location Provider Dx Diagnosis Office Visit 08/08/2018 [facility] Michael Tadeo I10 Essential (primary) 2:30p MD Rebeca hypertension I50.33 Acute on chronic diastolic (congestive) heart failure Office Visit 08/05/2018 [facility] Michael Tadeo I50.33 Acute on chronic 2:20p Office MD Rebeca diastolic (congestive) heart failure I48.2 Chronic atrial fibrillation Plan of Treatment Future Appointment(s):09/16/2018 1:40 pm - Michael Jose MD at [facility] Lgnlhu0809/04/2018 - Michael Jose MDI50.33 Acute on chronic diastolic (congestive) heart kdaiojiS66.4 Other specified disorders of parathyroid glandAllComments:Medication Management Patient Understands medications she's taking? Yes No Are there Barriers to Adherence? Yes No Has the patient been asked about herbal supplements and therapies, and OTC meds? Yes No
--- OUTSIDE RECORDS SUMMARY | 2018-09-10 19:50 | XMS REPORT | Continuity of Care Document ---
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 Michael Jose MD Primary Care Physician Unavailable Payers Date Identification Numbers Payment Provider Subscriber Policy Number: [id number] A[employer] Medicare Ppo Nirali Farah Group Number: [id number] [address] PayID: [id number] [place] [address] Family History Date Family Member(s) Observation Comments [...] mouth twice MD Rebeca a day Furosemide 1-2 by mouth 60tabs Michael Tadeo 20mg Tablets every day MD Rebeca Potassium Chloride Erica 1 by mouth 30tabs Michael Tadeo ER every day MD Rebeca 20Meq Tablets ER Spironolactone 1 by mouth 30tabs Michael Tadeo 25mg Tablets every day MD Rebeca Metoprolol Tartrate take one tablet Unknown 25mg by mouth twice Tablets a day Atorvastatin Calcium 1 by mouth Unknown 40mg every day Tablets Caltrate 600+D3 Unknown [id number] Tablets History Medications Xarelto one po bid [...] day Vital Signs Date Vital Result Comment 09/10/2018 3:01pm BP Systolic 132 mmHg BP Diastolic 70 mmHg Heart Rate 92 /min Body Temperature 97.9 F Respiratory Rate 16 /min Height 68 inches 5'8" Weight 147.50 lb BMI (Body Mass Index) 22.4 kg/m2 09/04/2018 4:37pm BP Systolic 128 mmHg BP [...] Result H/L Range Note Laboratory test 09/04/2018 [facility] Brain Natural 1380 pg/mL High <100 finding (607)- - Peptide PTH Intact & CA 09/04/2018 [facility] Calcium 11.1 mg/dL High 8.7-10.3 1, 2 Ser & Plasma [address] [place] [address] (607)- - Intact PTH See Comment: 3 PTH, Intact 80 pg/mL High 15-65 Comprehensive Metabolic 09/04/2018 [facility](fma) Sodium 141 mEq/L 134-149 Prof Potassium 4.5 mEq/L 3.6-5.5 Chloride 102 mEq/L 94-112 Carbon Dioxide 31 mEq/L 21-32 Glucose 104 mg/dL 70-105 BUN 33 mg/dL High 6-26 4 Creatinine 1.1 mg/dL 0.6-1.4 BUN/Creat Ratio 30.0 CALC 8.0-36.0 Calcium 10.4 mg/dL High 8.6-10.2 5 Total Protein 7.7 g/dL 6.4-8.3 Albumin 4.2 g/dL 3.8-5.5 Globulin 3.5 g/dL 2.0-4.8 A/G Ratio 1.2 CALC 0.6-2.3 Alk. Phosphatase 87 U/L 30-110 Alt (SGPT) 16 U/L 7-35 Ast (Sgot) 22 U/L 5-34 Total Bilirubin 1.2 mg/dL 0.2-1.3 GFR Non- 50 ml/min/1.73m^ Low >=60 GFR >60 ml/min/1.73m^ >=60 Basic Metabolic Profile 08/08/2018 [facility](fma) Sodium 142 mEq/L 134-149 Potassium 4.4 mEq/L 3.6-5.5 Chloride 98 mEq/L 94-112 Carbon Dioxide 29 mEq/L 21-32 Glucose 109 mg/dL High 70-105 6 BUN 27 mg/dL High 6-26 7 Creatinine 1.2 mg/dL 0.6-1.4 BUN/Creat Ratio 22.5 CALC 8.0-36.0 Calcium 10.6 mg/dL High 8.6-10.2 8 GFR Non- 45 ml/min/1.73m^ Low >=60 GFR 55 ml/min/1.73m^ Low >=60 Laboratory test 08/08/2018 [facility] Brain Natural 562 pg/mL High < 100 finding (607)- - Peptide 1 1 sst 2 Verified by repeat analysis 3 Interpretation Intact PTH Calcium (pg/mL) (mg/dL) Normal 15 - 65 8.6 - 10.2 Primary Hyperparathyroidism >65 >10.2 Secondary Hyperparathyroidism >65 <10.2 Non-Parathyroid Hypercalcemia <65 >10.2 Hypoparathyroidism <15 < 8.6 Non-Parathyroid Hypocalcemia 15 - 65 < 8.6 4 consistent w/ previous results 5 consistent w/ previous results 6 RESULTS VERIFIED BY REPEAT ANALYSIS 7 RESULTS VERIFIED BY REPEAT ANALYSIS 8 consistent w/ previous results Encounters Type Date Location Provider Dx Diagnosis Office Visit 09/04/2018 [facility] Office Michael Tadeo I50.33 Acute on chronic 4:20p MD Rebeca diastolic (congestive) heart failure 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.4 Other specified disorders of parathyroid gland Office Visit 08/08/2018 2:30p [facility] Office Michael Tadeo I10 Essential MD Rebeca (primary) hypertension I50.33 Acute on chronic diastolic (congestive) heart failure Office Visit 08/05/2018 [facility] Michael Tadeo I50.33 Acute on chronic 2:20p Office MD Rebeca diastolic (congestive) heart failure I48.2 Chronic atrial fibrillation Plan of Treatment Future Appointment(s):09/16/2018 1:40 pm - Michael Jose MD at [facility] Ujqhdh9709/10/2018 - Nina Vitale-CE21.4 Other specified disorders of parathyroid reuyzB73.2 Chronic atrial fibrillationFollow up: Followup:. (Follow up)R53.83 Other fatigueAllComments:Medication Management Patient Understands medications she's taking? Yes No ? Are there Barriers to Adherence? Yes No Has the patient been asked about herbal supplements and therapies, andOTC meds? Yes No family has been asked Care Plan1. Patient has been queried about patient's goals/preferences and functional/lifestyle goals at relevant visits. If relevant, describe: na2. Treatment goals as explained to the patient: abovefurhter sx evaluation 3. Are there barriers to meeting treatment goals? Yes No If Yes, please describe:4. Self-Management goals as described to the patient: Yes No case reviewed and pt examined with Dr Leggett family is agreeable to proceed to er for further eval and poss admission er notified
--- OUTSIDE RECORDS SUMMARY | 2018-09-10 19:50 | XMS REPORT | Continuity of Care Document ---
:1935 External Reference #:[id number] Author Name Tiara West Care Team Providers Name Role Phone Michael Jose MD Care Team Information [facility] Sanitarian Unavailable Micahel Jose MD Primary Care Physician Unavailable Payers Date Identification Numbers Payment Provider Subscriber Policy Number: [id number] [employer] Medicare Nirali Farah PayID: [id number] [address] [place] [address] Family History Date Family Member(s) Observation Comments Father Heart Disease Mother Heart Disease Mother due to Heart Disease () Siblings 2 Social History Type Date Description Comments Sex Unknown Marital Status Lives With Family Occupation Retired Tobacco Use Start: Unknown Never Smoked Cigarettes Smoking Status Reviewed: 08/21/18 Never Smoked Cigarettes ETOH Use Denies alcohol use Tobacco Use Start: Unknown Patient has never smoked Recreational Drug Use Denies Drug Use Exercise Type/Frequency Exercises sporadically Allergies, Adverse Reactions, Alerts Active Allergies Reaction Severity Comments Date Tetracycline 08/21/2018 Medications Active Medications SIG Qnty Indications Ordering Provider Date Furosemide 1 by mouth every Unknown 20mg Tablets day Potassium Chloride ER 1 by mouth every Unknown 20Meq day Tablets ER Spironolactone 1 by mouth every Unknown 25mg Tablets day Tums 1 tab by mouth Unknown 500mg Chewtabs four times a day as needed Metoprolol Tartrate 1 by mouth twice Unknown 25mg a day Tablets Lipitor 1 by mouth at Unknown 40mg Tablets bedtime Eliquis 1 by mouth twice Unknown 5mg Tablets a day Skyl[place] Original as needed otc Unknown 325mg Tablets Efferv Caltrate 600 1 tab po qd Unknown 1500(600Ca) mg Tablets History Medications Aspirin 81 1 by mouth every day Unknown - 08/20/2018 81mg Tablets Hydralazine HCL 1 by mouth three Unknown - 08/20/2018 25mg Tablets times a day Vital Signs Date Vital Result Comment 08/21/2018 4:04pm Height 67 inches 5'7" Weight 153.00 lb Heart Rate 88 /min BP Systolic Sitting 144 mmHg lue reg cuff BP Diastolic Sitting 76 mmHg lue reg cuff BP Systolic Standing 138 mmHg lue reg cuff BP Diastolic Standing 78 mmHg lue reg cuff Respiratory Rate 14 /min BMI (Body Mass Index) 24.0 kg/m2 Ejection Fraction 60-65% Procedures Date Code Description Status 08/21/2018 38969 EKG Tracing & Interpretation Completed Encounters Type Date Location Provider Dx Diagnosis Office Visit 08/03/2018 [facility] Susan Waddell, R06.00 Dyspnea, 11:32a Assedward gardner M.D. unspecified Hospitalists I48.2 Chronic atrial fibrillation Office Visit 08/02/2018 11:32a [facility] Song R06.02 Shortness of edward Conde M.D. breath Hospitalists I31.3 Pericardial effusion (noninflammatory) I48.91 Unspecified atrial fibrillation I10 Essential (primary) hypertension Plan of Treatment 08/21/2018 - Lizandro Esquivel DO FACCI48.2 Chronic atrial fibrillationFollow up: Please have patient sign record release for Dr. Ramy Lopez in [place], [place] f/u 1 yearI50.32 Chronic diastolic (congestive) heart [id number] Essential (primary) hypertension
--- OUTSIDE RECORDS SUMMARY | 2018-09-10 19:50 | XMS REPORT | Continuity of Care Document ---
:1935 External Reference #:[id number] Author Name Anny Wong Care Team Providers Name Role Phone Lizandro Esquivel DO [facility] Care Team Information [employer] Member Unavailable Payers Date Identification Numbers Payment Provider Subscriber Policy Number: [id number] [employer] Medicare Nirali Farah PayID: [id number] [address] [place] [address] Family History Date Family Member(s) Observation Comments Mother Heart Disease Social History Type Date Description Comments Sex Unknown ETOH Use Denies alcohol use Tobacco Use Start: Unknown Patient has never smoked Medications Active Medications SIG Qnty Indications Ordering Provider Date Furosemide 1 by mouth every Unknown 20mg Tablets day Potassium Chloride ER 1 by mouth every Unknown 20Meq day Tablets ER Spironolactone 1 by mouth every Unknown 25mg Tablets day Tums 1 tab by mouth Unknown 500mg Chewtabs four times a day as needed Aspirin 81 1 by mouth every Unknown 81mg Tablets DR day Metoprolol Tartrate 1 by mouth twice Unknown 25mg a day Tablets Lipitor 1 by mouth at Unknown 40mg Tablets bedtime Hydralazine HCL 1 by mouth three Unknown 25mg Tablets times a day Encounters Type Date Location Provider Dx Diagnosis Office Visit 08/03/2018 [facility] Susan Waddell, R06.00 Dyspnea, 11:32a edward Conde M.D. unspecified Hospitalists I48.2 Chronic atrial fibrillation Office Visit 08/02/2018 11:32a [facility] Song R06.02 Shortness of Assocedward M.D. breath Hospitalists I31.3 Pericardial effusion (noninflammatory) I48.91 Unspecified atrial fibrillation I10 Essential (primary) hypertension
[2018-09-10] MEDS ORDERED: NS 0.9% 1000 ML** 1,000 ML IV ONE ×2 (22:38→23:17)
[2018-09-10 22:58] LABS: Urine Appearance Clear; Urine Bacteria Absent (Absent); Urine Bilirubin Negative (Negative); Urine Blood 1+ (Negative); Urine Color Yellow; Urine Glucose Negative (Negative); Urine Ketones Negative (Negative); Urine Nitrite Negative (Negative); Urine Protein 2+(100 mg/dL) (Negative); Urine Red Blood Cell 2+(6-10/hpf) (Absent); Urine Specific Gravity 1.018 (1.010-1.030); Urine Urobilinogen Negative (Negative); Urine White Blood Cell Trace(0-5/hpf) (Absent)
[2018-09-10 23:18] LABS: ABS Basophils 0.1 10^3/ul (0-0.2); ABS Eosinophils 0.1 10^3/ul (0-0.6); ABS Lymphocytes 1.1 10^3/ul (1.0-4.8); ABS Monocytes 0.7 10^3/ul (0-0.8); ABS Neutrophils 7.9 10^3/ul (1.5-7.7); Eosinophil % 0.9 %; Hematocrit 40 % (35-47); Hemoglobin 12.7 g/dL (12.0-16.0); Lymphocyte % 11.5 %; Mean Corpuscular HGB Conc 32 g/dL (31-36); Mean Corpuscular Hemoglobin 26 pg (27-31); Mean Corpuscular Volume 81 fL (80-97); Mean Platelet Volume 7.1 fL (7.4-10.4); Platelet Count 316 10^3/uL (150-450); Red Blood Count 4.91 10^6 /uL (3.70-4.87); Red Cell Distribution Width 15 % (10-15); White Blood Count 9.9 10^3/uL (3.5-10.8)
[2018-09-10 23:28] LABS: Activated Partial Thrombo Time 40.4 seconds (26.0-38.0); INR 1.57 (0.82-1.09)
[2018-09-10 23:36] LABS: Albumin 3.3 g/dL (3.2-5.2); Albumin/Globulin Ratio 0.8 (1-3); BUN/Creatinine Ratio 24.6 (8-20); C Reactive Protein 86.38 mg/L (<8.01); Calcium 10.4 mg/dL (8.6-10.3); EGFR African American 50.8 (>60); Globulin 4.4 g/dL (2-4); Potassium 4.3 mmol/L (3.5-5.0); Total Bilirubin 0.6 mg/dL (0.2-1.0); Total Protein 7.7 g/dL (6.4-8.9)
[2018-09-10 23:38] LABS: Troponin I 0.01 ng/mL (<0.04)
[2018-09-11] MEDS ORDERED: Levofloxacin 500 MG IVPREMIX(* 500 MG/100 ML BAG IVPB ONE (00:37)
[2018-09-11] MEDS ORDERED: Metoprolol Tartrate TAB* 25 MG PO ONE (01:53)
--- NOTE | 2018-09-11 02:51 | HP ---
History of Present Illness - History of Present Illness Reason for Visit: Generalized weakness History of Present Illness: 82yoF with hypercalcemia due to hyperparathyroidism s/p surgical correction in June 2018 and recent admission for small pericardial effusion started diuretics about a month ago was brought in due to lethargy. This has been going on for 10 days, started out with somnolence, instability in gait, decreased appetite weight loss. All the symptoms were similar to her symptoms prior to parathyroidiectomy according to daughter so she brought the patient for further evaluation as patient also had 2 episodes of falls at home due to her instability in gait. Past Medical History Atrial fibrillation, not on anticoagulation status post a fall. Asthma. Hypercalcemia, status post parathyroidectomy. Hyperparathyroidism, status post parathyroidectomy June 2018 at [facility]. Hypertension. Hyperlipidemia. CKD. CAD. GERD. TIA. Thrombocytopenia. Past Surgical History Status post parathyroidectomy June 2018 at [facility]. Right wrist carpel tunnel release surgery in Status post left groin Hernia repair in the . Bilateral Cataract surgeries Family History Mother had "heart problems" and at age 68. Social History Lives with daughter and son-in-law. Able to do her activities of daily living independently up until 10 days ago. No smoking, alcohol or drugs. Allergies Tetracyclines Home Medications Atorvastatin* [Lipitor 40 MG*] 40 mg PO QPM 08/01/18 [History Confirmed 09/10/18 ] Calcium Carbonate CHEW TAB* [Tums*] 1,000 mg PO BID PRN 08/01/18 [History Confirmed 09/10/18] Metoprolol Tartrate TAB* [Lopressor TAB*] 25 mg PO BID 08/01/18 [History Confirmed 09/10/18] hydrALAZINE TAB* [Apresoline TAB*] 25 mg PO TID 08/01/18 [History Confirmed ] Furosemide TAB* [Lasix TAB*] 20 mg PO DAILY #30 tab 08/03/18 [Rx Confirmed 09/10] Spironolactone TAB* [Aldactone TAB 25 MG*] 25 mg PO DAILY #30 tab 08/03/18 [Rx Confirmed 09/10/18] Potassium Chlor TAB* [Klor Con ER TAB*] 20 meq PO BID 09/10/18 [History Confirmed 09/10/18] Review of Systems - Measurements Intake and Output: Intake and Output Last 24 Hours 09/08/18 09/09/18 09/10/18 09/11/18 06:59 06:59 06:59 06:59 Intake Total 2099 Balance 2099 Weight 147 lb Intake: IV Fluids 2099 - Review of Systems Constitutional Symptoms: Positive: Weight Loss - 6lbs over the last month. Negative: Fever, Night Sweats Dermatology: Negative: Rash Eyes: Negative: Double Vision Thyroid: Negative: Constipation Pulmonary: Negative: Cough, Shortness of Breath Cardiology: Negative: Chest Pain, Shortness of Breath, Palpitations Gastroenterology: Negative: Abdominal Pain, Nausea, Vomiting Neurology: Positive: Change in Balancing, Change in Coordination Objective Vital Signs - 8 hr 09/10/18 09/10/18 09/10/18 19:06 21:28 22:27 Temperature 98.8 F 98.7 F Pulse Rate 100 100 101 Respiratory 18 18 27 Rate Blood Pressure 164/104 164/98 169/106 (mmHg) O2 Sat by Pulse 98 97 99 Oximetry 09/10/18 09/10/18 09/10/18 22:33 22:35 22:47 Temperature Pulse Rate 93 Respiratory 16 27 Rate Blood Pressure (mmHg) O2 Sat by Pulse 99 94 Oximetry 09/10/18 09/10/18 09/10/18 22:48 22:57 23:00 Temperature 100.1 F Pulse Rate Respiratory 29 18 Rate Blood Pressure 142/91 (mmHg) O2 Sat by Pulse Oximetry 09/10/18 09/11/18 09/11/18 23:06 00:00 00:07 Temperature Pulse Rate 94 94 91 Respiratory 27 33 29 Rate Blood Pressure 171/102 172/93 (mmHg) O2 Sat by Pulse 98 96 96 Oximetry 09/11/18 09/11/18 09/11/18 00:39 01:00 01:07 Temperature Pulse Rate 99 Respiratory 39 28 28 Rate Blood Pressure 180/102 (mmHg) O2 Sat by Pulse 93 Oximetry 09/11/18 09/11/18 01:08 01:47 Temperature 99 F 97.8 F Pulse Rate Respiratory Rate Blood Pressure (mmHg) O2 Sat by Pulse Oximetry Oxygen Devices in Use Now: None Eyes: No Scleral Icterus, PERRLA Ears/Nose/Mouth/Throat: NL Teeth, Lips, Gums, Clear Oropharnyx Neck: NL Appearance and Movements; NL JVP, Trachea Midline Respiratory: Clear to Auscultation Cardiovascular: NL Sounds; No Murmurs; No JVD, RRR Extremities: No Edema Skin: No Rash or Ulcers Neurological: - - Knew it was august but didn't know where she was thought she was in [place] Result Diagrams: 09/10/18 23:08 09/10/18 23:08 Diagnostic Imaging: CT Head Without Contrast IMPRESSION: 1. No acute intracranial pathology. ASPECTS score 10. 2. Other chronic findings, as above. Portable Chest X-ray Shows features of cardiomegaly but otherwise clear lungs. Official radiologist read pending. EKG Data: When compared to last months EKG patient still in A. Fib however the rate has increased to 92bpm today. Assess/Plan/Problems-Billing Assessment: - Patient Problems (1) Generalized weakness Current Visit: Yes Status: Acute Code(s): R53.1 - WEAKNESS SNOMED Code(s) : 86937334 Comment: Likely due to hypercalcimia (2) Hypercalcemia syndrome Current Visit: Yes Status: Acute Code(s): E83.52 - HYPERCALCEMIA SNOMED Code(s): 16010209 Comment: History of parathyroidectomy however PTH elevated again. Start telma hydration given recent admission about a month ago for diastolic CHF Consult endocrinology regarding further treatment plan. (3) Acute kidney injury Current Visit: Yes Status: Acute Code(s): N17.9 - ACUTE KIDNEY FAILURE, UNSPECIFIED SNOMED Code(s): 34955051 Comment: Start IV hydration. Hold home diuretic meds. (4) Chronic atrial fibrillation Current Visit: No Status: Acute Code(s): I48.2 - CHRONIC ATRIAL FIBRILLATION SNOMED Code(s): 845211986 Comment: Off anticoagulation after a fall cont lopressor for rate control. (5) DVT prophylaxis Current Visit: No Status: Acute Code(s): Z29.9 - ENCOUNTER FOR PROPHYLACTIC MEASURES, UNSPECIFIED SNOMED Code(s): 436218682 Comment: Heparin Subcut
[2018-09-11] MEDS ORDERED: NS 0.9% 1000 ML** 1,000 ML IV SCH (03:45)
--- NOTE | 2018-09-11 04:05 | ED ---
Complex/Multi-Sys Presentation - HPI Summary HPI Summary: This patient is a 82 year old F presenting to [facility] accompanied by her daughter and a male facsimile machine operator with a chief complaint of generalized weakness since 2 weeks ago. Per daughter, pt has gotten progressively weak over the last 2 weeks. Pt fell this morning due to her weakness and has lost 6 pounds this past week. She had a parathyoidectomy done Jul 03 2018. Pt is confused more than baseline due to abnormal calcium levels. Patient reports neck pain, excessive sleeping, and last BM 2 days ago. Patient denies having an appetite. Symptoms aggravated by nothing. Symptoms alleviated by nothing. Pt usually walks without any devices and denies hx of Alzheimers. - History Of Current Complaint Chief Complaint: EDGeneral Time Seen by Provider: 09/10/18 22:24 Hx Obtained From: Patient, Family/Founder & Ceo - daughter, Other: - male facsimile machine operator Onset/Duration: Sudden Onset, Lasting Weeks - 2, Worse Since - 2 weeks ago Timing: Constant, Weeks - 2 Aggravating Factor(s): nothing Alleviating Factor(s): nothing Associated Signs And Symptoms: Positive: Weakness, Other - positive - more confused than baseline, neck pain, excessive sleeping, last BM 2 days ago, fall this morning - Allergies/Home Medications Allergies/Adverse Reactions: Allergies Allergy/AdvReac Type Severity Reaction Status Date / Time Tetracyclines Allergy Unknown Verified 09/10/18 19:06 Reaction Details Home Medications: Home Medications Potassium Chlor TAB* [Klor Con ER TAB*] 20 meq PO BID 09/10/18 [History Confirmed 09/10/18] PMH/Surg Hx/FS Hx/Imm Hx Previously Healthy: No Endocrine/Hematology History: 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 Denies: Hx Diabetes Cardiovascular History: Reports: Hx Hypertension Respiratory History: Reports: Hx Asthma Denies: Hx Chronic Obstructive Pulmonary Disease (COPD) Musculoskeletal History: Denies: Hx Arthritis, Hx Osteoporosis Sensory History: Reports: Hx Contacts or Glasses Denies: Hx Hearing Aid Opthamlomology History: Reports: Hx Contacts or Glasses Neurological History: Denies: Hx Seizures, Hx Transient Ischemic Attacks (TIA) - Surgical History Surgical History: Yes Surgery Procedure, Year, and Place: hernia repair Infectious Disease History: No Infectious Disease History: Denies: Hx Hepatitis, Traveled Outside the [place] in Last 30 Days - Family History Known Family History: Positive: Non-Contributory - Social History Alcohol Use: None Hx Substance Use: No Substance Use Type: Reports: None Hx Tobacco Use: No Smoking Status (MU): Never Smoked Tobacco Review of Systems Constitutional: Other - positive - generalized weakness, fall this morning, excessive sleeping. denies - appetite ENT: Other - positive - neck pain Gastrointestinal: Other - positive - last BM 2 days ago Psychological: Other - positive - confused All Other Systems Reviewed And Are Negative: Yes Physical Exam - Summary Physical Exam Summary: VITAL SIGNS: Reviewed. GENERAL: Lethargic, Patient is a well-developed and nourished FEMALE who is lying comfortable in the stretcher. Patient is not in any acute respiratory distress. HEAD AND FACE: No signs of trauma. No ecchymosis, hematomas or skull depressions. No sinus tenderness. EYES: PERRLA, EOMI x 2, No injected conjunctiva, no nystagmus. EARS: Hearing grossly intact. Ear canals and tympanic membranes are within normal limits. MOUTH: Oropharynx within normal limits. NECK: Supple, trachea is midline, no adenopathy, no JVD, no carotid bruit, no c- spine tenderness, neck with full ROM CHEST: Symmetric, no tenderness at palpation LUNGS: Decreased breath sounds bilaterally. No wheezing or crackles. CVS: Irregular S1 and S2, no murmurs or gallops appreciated. ABDOMEN: Soft, non-tender. No signs of distention. No rebound no guarding, and no masses palpated. Bowel sounds are normal. EXTREMITIES: FROM in all major joints, no edema, no cyanosis or clubbing. NEURO: Alert and oriented x 3. No acute neurological deficits. Speech is normal and follows commands. SKIN: Dry and warm Triage Information Reviewed: Yes Vital Signs On Initial Exam: Initial Vitals Temp Pulse Resp BP Pulse Ox 98.8 F 100 18 164/104 98 09/10/18 19:06 09/10/18 19:06 09/10/18 19:06 09/10/18 19:06 09/10/18 19:06 Vital Signs Reviewed: Yes Diagnostics - Vital Signs Vital Signs Temp Pulse Resp BP Pulse Ox 09/11/18 01:47 97.8 F 09/11/18 01:08 99 F 09/11/18 01:07 28 09/11/18 01:00 28 09/11/18 00:39 99 39 180/102 93 09/11/18 00:07 91 29 172/93 96 09/11/18 00:00 94 33 96 09/10/18 23:06 94 27 171/102 98 09/10/18 23:00 18 09/10/18 22:57 29 142/91 09/10/18 22:48 100.1 F 09/10/18 22:47 94 09/10/18 22:35 27 09/10/18 22:33 93 16 99 09/10/18 22:27 101 27 169/106 99 09/10/18 21:28 98.7 F 100 18 164/98 97 09/10/18 19:06 98.8 F 100 18 164/104 98 - Laboratory Lab Results: Lab Results 09/10/18 09/10/18 09/10/18 Range/Units 22:48 23:08 23:08 WBC 9.9 (3.5-10.8) 10^3/uL RBC 4.91 H (3.70-4.87) 10^6 /uL Hgb 12.7 (12.0-16.0) g/dL Hct 40 (35-47) % MCV 81 (80-97) fL MCH 26 L (27-31) pg MCHC 32 (31-36) g/dL RDW 15 (10-15) % Plt Count 316 (150-450) 10^3/uL MPV 7.1 L (7.4-10.4) fL Neut % (Auto) 79.7 % Lymph % (Auto) 11.5 % Custer % (Auto) 7.1 % Eos % (Auto) 0.9 % Baso % (Auto) 0.8 % Absolute Neuts (auto) 7.9 H (1.5-7.7) 10^3/ul Absolute Lymphs (auto) 1.1 (1.0-4.8) 10^3/ul Absolute Monos (auto) 0.7 (0-0.8) 10^3/ul Absolute Eos (auto) 0.1 (0-0.6) 10^3/ul Absolute Basos (auto) 0.1 (0-0.2) 10^3/ul Absolute Nucleated RBC 0.0 10^3/ul Nucleated RBC % 0.0 INR (Anticoag Therapy) 1.57 H (0.82-1.09) APTT 40.4 H (26.0-38.0) seconds Sodium (135-145) mmol/L Potassium (3.5-5.0) mmol/L Chloride (101-111) mmol/L Carbon Dioxide (22-32) mmol/L Anion Gap (2-11) mmol/L BUN (6-24) mg/dL Creatinine (0.51-0.95) mg/dL Est GFR ( Amer) (>60) Est GFR (Non-Af Amer) (>60) BUN/Creatinine Ratio (8-20) Glucose (70-100) mg/dL Lactic Acid (0.5-2.0) mmol/L Calcium (8.6-10.3) mg/dL Total Bilirubin (0.2-1.0) mg/dL AST (13-39) U/L ALT (7-52) U/L Alkaline Phosphatase (34-104) U/L Troponin I (<0.04) ng/mL C-Reactive Protein (<8.01) mg/L B-Natriuretic Peptide (<=100) pg/mL Total Protein (6.4-8.9) g/dL Albumin (3.2-5.2) g/dL Globulin (2-4) g/dL Albumin/Globulin Ratio (1-3) PTH Intact (12-88) pg/mL Calcium (PTH Intact) (8.6-10.3) mg/dL Urine Color Yellow Urine Appearance Clear Urine pH 5.0 (5-9) Ur Specific [employer] 1.018 (1.010-1.030) Urine Protein 2+(100 mg/dl) A (Negative) Urine Ketones Negative (Negative) Urine Blood 1+ A (Negative) Urine Nitrate Negative (Negative) Urine Bilirubin Negative (Negative) Urine Urobilinogen Negative (Negative) Ur Leukocyte Esterase Negative (Negative) Urine WBC (Auto) Trace(0-5/hpf) (Absent) Urine RBC (Auto) 2+(6-10/hpf) A (Absent) Urine Bacteria Absent (Absent) Hyaline Casts Present A (Absent) Urine Glucose Negative (Negative) Urine Ascorbic Acid * A (Negative) 09/10/18 09/10/18 09/10/18 Range/Units 23:08 23:08 23:08 WBC (3.5-10.8) 10^3/uL RBC (3.70-4.87) 10^6 /uL Hgb (12.0-16.0) g/dL Hct (35-47) % MCV (80-97) fL MCH (27-31) pg MCHC (31-36) g/dL RDW (10-15) % Plt Count (150-450) 10^3/uL MPV (7.4-10.4) fL Neut % (Auto) % Lymph % (Auto) % Custer % (Auto) % Eos % (Auto) % Baso % (Auto) % Absolute Neuts (auto) (1.5-7.7) 10^3/ul Absolute Lymphs (auto) (1.0-4.8) 10^3/ul Absolute Monos (auto) (0-0.8) 10^3/ul Absolute Eos (auto) (0-0.6) 10^3/ul Absolute Basos (auto) (0-0.2) 10^3/ul Absolute Nucleated RBC 10^3/ul Nucleated RBC % INR (Anticoag Therapy) (0.82-1.09) APTT (26.0-38.0) seconds Sodium 136 (135-145) mmol/L Potassium 4.3 (3.5-5.0) mmol/L Chloride 102 (101-111) mmol/L Carbon Dioxide 26 (22-32) mmol/L Anion Gap 8 (2-11) mmol/L BUN 30 H (6-24) mg/dL Creatinine 1.22 H (0.51-0.95) mg/dL Est GFR ( Amer) 50.8 (>60) Est GFR (Non-Af Amer) 42.0 (>60) BUN/Creatinine Ratio 24.6 H (8-20) Glucose 106 H (70-100) mg/dL Lactic Acid 1.1 (0.5-2.0) mmol/L Calcium 10.4 H (8.6-10.3) mg/dL Total Bilirubin 0.60 (0.2-1.0) mg/dL AST 20 (13-39) U/L ALT 18 (7-52) U/L Alkaline Phosphatase 87 (34-104) U/L Troponin I 0.01 (<0.04) ng/mL C-Reactive Protein 86.38 H (<8.01) mg/L B-Natriuretic Peptide 350 H (<=100) pg/mL Total Protein 7.7 (6.4-8.9) g/dL Albumin 3.3 (3.2-5.2) g/dL Globulin 4.4 H (2-4) g/dL Albumin/Globulin Ratio 0.8 L (1-3) PTH Intact (12-88) pg/mL Calcium (PTH Intact) (8.6-10.3) mg/dL Urine Color Urine Appearance Urine pH (5-9) Ur Specific [employer] (1.010-1.030) Urine Protein (Negative) Urine Ketones (Negative) Urine Blood (Negative) Urine Nitrate (Negative) Urine Bilirubin (Negative) Urine Urobilinogen (Negative) Ur Leukocyte Esterase (Negative) Urine WBC (Auto) (Absent) Urine RBC (Auto) (Absent) Urine Bacteria (Absent) Hyaline Casts (Absent) Urine Glucose (Negative) Urine Ascorbic Acid (Negative) 09/10/18 Range/Units 23:08 WBC (3.5-10.8) 10^3/uL RBC (3.70-4.87) 10^6 /uL Hgb (12.0-16.0) g/dL Hct (35-47) % MCV (80-97) fL MCH (27-31) pg MCHC (31-36) g/dL RDW (10-15) % Plt Count (150-450) 10^3/uL MPV (7.4-10.4) fL Neut % (Auto) % Lymph % (Auto) % [place] % (Auto) % Eos % (Auto) % Baso % (Auto) % Absolute Neuts (auto) (1.5-7.7) 10^3/ul Absolute Lymphs (auto) (1.0-4.8) 10^3/ul Absolute Monos (auto) (0-0.8) 10^3/ul Absolute Eos (auto) (0-0.6) 10^3/ul Absolute Basos (auto) (0-0.2) 10^3/ul Absolute Nucleated RBC 10^3/ul Nucleated RBC % INR (Anticoag Therapy) (0.82-1.09) APTT (26.0-38.0) seconds Sodium (135-145) mmol/L Potassium (3.5-5.0) mmol/L Chloride (101-111) mmol/L Carbon Dioxide (22-32) mmol/L Anion Gap (2-11) mmol/L BUN (6-24) mg/dL Creatinine (0.51-0.95) mg/dL Est GFR ( Amer) (>60) Est GFR (Non-Af Amer) (>60) BUN/Creatinine Ratio (8-20) Glucose (70-100) mg/dL Lactic Acid (0.5-2.0) mmol/L Calcium (8.6-10.3) mg/dL Total Bilirubin (0.2-1.0) mg/dL AST (13-39) U/L ALT (7-52) U/L Alkaline Phosphatase (34-104) U/L Troponin I (<0.04) ng/mL C-Reactive Protein (<8.01) mg/L B-Natriuretic Peptide (<=100) pg/mL Total Protein (6.4-8.9) g/dL Albumin (3.2-5.2) g/dL Globulin (2-4) g/dL Albumin/Globulin Ratio (1-3) PTH Intact 116.9 H (12-88) pg/mL Calcium (PTH Intact) 9.9 (8.6-10.3) mg/dL Urine Color Urine Appearance Urine pH (5-9) Ur Specific [employer] (1.010-1.030) Urine Protein (Negative) Urine Ketones (Negative) Urine Blood (Negative) Urine Nitrate (Negative) Urine Bilirubin (Negative) Urine Urobilinogen (Negative) Ur Leukocyte Esterase (Negative) Urine WBC (Auto) (Absent) Urine RBC (Auto) (Absent) Urine Bacteria (Absent) Hyaline Casts (Absent) Urine Glucose (Negative) Urine Ascorbic Acid (Negative) Result Diagrams: 09/10/18 23:08 09/10/18 23:08 Lab Statement: Any lab studies that have been ordered have been reviewed, and results considered in the medical decision making process. - Radiology CXR Radiology Interpretation Completed By: ED Physician Summary of Radiographic Findings: mass over right upper lobe - CT Brain CT Interpretation Completed By: Radiologist Summary of CT Findings: IMPRESSION: 1. No acute intracranial pathology. ASPECTS score 10. 2. Other chronic findings, as above. These findings were reviewed by Dr. Elfar - EKG 2258 Cardiac Rate: NL - 92 BPM EKG Rhythm: Atrial Fibrillation Summary of EKG Findings: afib, 92 BPM, left axis deviation Complex Multi-Symp Course/Dx Course Of Treatment: This patient is a 82 year old F presenting to [facility] accompanied by her daughter and a male facsimile machine operator with a chief complaint of generalized weakness since 2 weeks ago. Per daughter, pt has gotten progressively weak over the last 2 weeks. Pt fell this morning due to her weakness and has lost 6 pounds this past week. She had a parathyoidectomy done Jul 03 2018. Pt is confused more than baseline due to abnormal calcium levels. Patient reports neck pain, excessive sleeping, and last BM 2 days ago. Patient denies having an appetite. Symptoms aggravated by nothing. Symptoms alleviated by nothing. Pt usually walks without any devices and denies hx of Alzheimers. Physical exam shows pt is lethargic, alert oriented x3, decreased breath sounds bilaterally, irregular S1 and S2. RBC 4.91, MCH 26, MPV 7.1, absolute neuts 7.9 , INR 1.57, APTT 40.4, BUN 30, creatinine 1.22, BUN/creatinine ratio 24.6, glucose 106, calcium, 10.4, C-reactive protein 86.38, BNP 350, globulin 4.4, Albumin/Globulin ratio 0.8, PTH Intact 116.9, urine protein 2+ A, urine blood 1 + A, urine RBC 2+ A, hyaline casts present A, urine ascorbic acid A. EKG at 2258 shows afib, 92 BPM, left axis deviation. Brain CT IMPRESSION: 1. No acute intracranial pathology. ASPECTS score 10. 2. Other chronic findings, as above. CXR shows mass over right upper lobe. During ED course, pt was given Levaquin, Lopressor, fluids. Dx are weakness, dehydration, and UTI. At 0142, Dr. Mccann discusses pt's case with Dr. Stock, hospitalist, who agrees to admit pt. Pt is agreeable. - Diagnoses Provider Diagnoses: Weakness, Dehydration, UTI (urinary tract infection) - Physician Notifications Discussed Care Of Patient With: Bianca Stock Time Discussed With Above Provider: 01:42 Instructed by Provider To: Other - Dr. Mccann discusses pt's case with Dr. Stock , hospitalist, who agrees to admit pt. Discharge - Sign-Out/Discharge Documenting (check all that apply): Patient Departure - admit Patient Received Moderate/Deep Sedation with Procedure: No - Discharge Plan Condition: Stable Disposition: ADMITTED TO [facility] - Attestation Statements Document Initiated by Scribe: Yes Documenting Scribe: Miles Conway Provider For Whom Scribe is Documenting (Include Credential): Dr. Alaina Mccann MD Scribe Attestation: IMiles, scribed for Dr. Alaina Mccann MD on 09/11/18 at 0431. Status of Scribe Document: Ready
[2018-09-11 06:59] LABS: ABS Eosinophils 0.1 10^3/ul (0-0.6); ABS Lymphocytes 0.9 10^3/ul (1.0-4.8); ABS Monocytes 0.5 10^3/ul (0-0.8); ABS Neutrophils 6.2 10^3/ul (1.5-7.7); Eosinophil % 0.8 %; Hematocrit 38 % (35-47); Hemoglobin 12.5 g/dL (12.0-16.0); Lymphocyte % 12.2 %; Mean Corpuscular HGB Conc 33 g/dL (31-36); Mean Corpuscular Hemoglobin 27 pg (27-31); Mean Corpuscular Volume 81 fL (80-97); Mean Platelet Volume 7.2 fL (7.4-10.4); Platelet Count 285 10^3/uL (150-450); Red Blood Count 4.69 10^6 /uL (3.70-4.87); Red Cell Distribution Width 15 % (10-15); White Blood Count 7.8 10^3/uL (3.5-10.8)
[2018-09-11 07:19] LABS: Albumin 3.1 g/dL (3.2-5.2); Albumin/Globulin Ratio 0.8 (1-3); BUN/Creatinine Ratio 22.9 (8-20); Calcium 8.9 mg/dL (8.6-10.3); EGFR African American 60.4 (>60); EGFR Non-African American 49.9 (>60); Globulin 3.9 g/dL (2-4); Magnesium 2.1 mg/dL (1.9-2.7); Potassium 3.8 mmol/L (3.5-5.0); Total Bilirubin 0.5 mg/dL (0.2-1.0)
[2018-09-11] MEDS: Metoprolol Tartrate TAB* 25 MG PO SCH ×2 (08:28→21:03)
[2018-09-11] MEDS: hydrALAZINE TAB* 25 MG PO SCH ×3 (08:28→21:03)
[2018-09-11] MEDS: Heparin VIAL(*) 5000 UNITS/ML VIAL (FIVE THOUSAND) SUBCUT SCH ×2 (08:29→21:03)
[2018-09-11] MEDS ORDERED: Zoledronic Acid* 4 MG in NS 0.9% 100 ML* 95 ML IVPB ONE (09:14)
[2018-09-11 11:43] LABS: Vitamin D Total 25(OH) 34.5 ng/mL (20-50)
[2018-09-11 11:49] LABS: Phosphorus 2.7 mg/dL (2.5-5.0)
--- NOTE | 2018-09-11 12:02 | CONS ---
CC: Dr. Eric Stock; Dr. Michael Jose at [facility] * CONSULTATION NOTE: DATE OF CONSULT: 09/11/18 REASON FOR CONSULTATION: Recurrent primary hyperparathyroidism, altered mental status, weakness, anorexia, and weight loss. HISTORY OF PRESENT ILLNESS: Nirali Farah is an 82-year-old female. I obtained the history from the patient who felt that her mental state was not normal and she deferred to both her daughter, Nevin Espinoza and her son-in-law Alex Espinoza. I obtained the history from both of them. She was well until earlier this year when she was living in [place] and she developed decline in her ability to walk, anorexia, and lethargy. She was found to have hypercalcemia with an elevated parathyroid hormone on 07/03/18, underwent parathyroidectomy at [facility], they do not know the name of the distribution warehouse manager or surgeon. She immediately returned back to normal with walking independently, able to do her ADLs, and was sharp mentally with no signs of any dementia. The third week of June, she moved to [place] to live with her family and established care with Dr. Michael Jose at [facility]. She has had a couple of issues since being here. Firstly, she has had some evidence of some heart failure and was seen by Dr. Lizandro Esquivel, however, over the past couple of weeks she has had a replication of her symptoms, she had prior to her parathyroid surgery. She became more lethargic, difficulty getting around. She is sleeping more. She had anorexia. She has lost 6 pounds in the last month. In the last few days, this has been accelerated. She went to Dr. Michael Jose's office and I spoke with the quality control lab tech there. On 08/08/18, her calcium was 10.6 and she had a brain natriuretic peptide of 562. On 09/04/18 in the office lab, her calcium was 10.4, BUN 33, BNP was 1380, parathyroid hormone which was sent out was 80 with a reference range of 15 to 65 and a simultaneous calcium of 11.1, which is discrepant from the office visit. She has had 2 falls and she has looked increasingly unwell. They took her back to [facility] who recommended that they take her to the [facility]. Here she was admitted on 09/11/18 with generalized weakness and her presentation is documented in Dr. Eric Stock's admitting history and physical. His impression is generalized weakness due to hypercalcemia, acute renal insufficiency, chronic atrial fibrillation. PAST MEDICAL HISTORY: Previous medial history from the patient, parathyroidectomy 07/03/18. She states she is 5, para 6 and had twins. She denies other major surgeries as well that she has hypertension and some heart disease. HOME MEDICATIONS: 1. Furosemide 20 mg daily. 2. Spironolactone 25 mg daily. 3. Potassium chloride 20 mEq b.i.d. 4. Atorvastatin 40 mg q.h.s. 5. Metoprolol 25 mg twice daily. 6. Calcium carbonate 100 mg twice daily. 7. Hydralazine 25 mg t.i.d. SOCIAL HISTORY: She is living with daughter and son-in-law and has moved recently from [place]. 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 REVIEW OF SYSTEMS: Was not useful due to her altered mental state. PHYSICAL EXAM: Temperature 97.9, heart rate 78, respirations 20, oxygen saturation is 100% on room air, blood pressure 139/65. She is awake. She is oriented to person and place, but not time. She is slow in answering questions and differs to her family as she is not able to give a good account of herself. She is warm and well perfused and hydrated. She has no cyanosis, anemia, jaundice, clubbing, or lymphadenopathy. Endocrine Examination: She is clinically euthyroid. She has no goiter. She has no signs of Walnut syndrome , acromegaly or other endocrinopathy. Her BMI is 23. Cardiovascular System: Pulse irregularly irregular. Heart sounds are normal. No added sounds or murmurs. No pedal edema. Respiratory System: Chest expansion was full and symmetrical, percussion note resonant, breath sounds vesicular. Abdomen was not distended. No masses, tenderness or organomegaly. DIAGNOSTIC STUDIES/LAB DATA: At presentation on 09/10/18, white count 9.9, percent neutrophils 79.7, hemoglobin 12.7, hematocrit 40, and platelets 316. Normal differential. Chemistry at presentation, sodium 136, potassium 4.3, chloride 102, bicarbonate 26, BUN 30, creatinine 1.22, eGFR 50.8, glucose 106, calcium 10.4. CRP 86.38. Normal LFTs. Intact PTH drawn at the same time was 116.9 and the hospital simultaneous calcium was 9.9. This morning, her calcium is 8.9. Urinalysis 2+ protein, 1+ blood, 2+ rbcs. Imaging: On 08/01/18, she had a CTA, showed cardiomegaly, pericardial effusion , no pulmonary embolism. I will have Radiology look at her next for this. On 09/10/18 chest x-ray, enlargement of cardiac silhouette. Brain CT, no acute intracranial abnormalities. On 08/02/18, she had a transthoracic echocardiogram, ejection fraction was 60% to 65%. Mild aortic stenosis, severe tricuspid regurgitation, small pericardial effusion. Right ventricle cavity was mildly enlarged. A 12-lead EKG on 09/10/18, rate 92, atrial fibrillation, QTc 456, QRS 382, axis - 62, left anterior hemiblock, inferior Q waves, poor R wave progression. No other signs of hypercalcemia. ASSESSMENT AND PLAN: 1. Recurrent primary hyperparathyroidism. I note a big discrepancy in the calcium levels both at primary care doctor's office and at the hospital with higher levels routinely and lower levels with the parathyroid assays and I am going to ignore the parathyroid assay calciums. She has two tests, which shows that she has recurrent primary hyperparathyroidism. She had surgery in June. I will obtain the records from [facility]. Her symptoms recapitulate the symptoms she had back then. I would like to be sure that we are not missing something else, so I note that her CRP is mildly elevated and I also note that currently she is taking no antibiotics, but she was given some levofloxacin in the emergency room , so if we can rule out other causes of her symptoms and signs and we assume that this is related to her primary hyperparathyroidism, it is important to normalize the calcium. I note her calcium today is normalized though I would like an ionized calcium back. I have added phosphorus and 25-hydroxyvitamin D because a low vitamin D level can also cause secondary hyperparathyroidism. I am going to check a thyroid ultrasound and parathyroid scan and I am starting her on cinacalcet 30 mg twice daily. This is a calcium sensing receptor agonist that interacts with receptors on the surface of the parathyroid gland cells and transduces a message to reduce the production and release of PTH, reducing PTH levels and consequently calcium concentration. Once I have obtained records from [facility], I can start to consider a future surgical management ; however, it is important that she is medically stable for this and we may do this at a later stage. 2. Congestive cardiac failure. The internal medicine team at the [facility] will evaluate this and treat. 3. Possibility of occult infection. I note that her urinalysis though abnormal does not suggest infection, however, CRP is elevated. They will evaluate whether her delirium is due to some other cause, though most likely it relates to the hypercalcemia. 4. I note that her thyroid function is normal and there is no other signs of endocrinopathy. I have spoken to the daughter and son-in-law and explained the above to them. I also explained this well as I could to the patient. [id number]/[facility] #: [id number] ARNAV
--- NOTE | 2018-09-11 16:12 | PN ---
Subjective Date of Service: 09/11/18 Interval History: seen this morning she feels she is slightly more awake and she acknowledge that she was confused yesterday similar to her symptoms that was associated with her initial diagnosis of hypercalcemia . Seen by Dr. Lennon note appreciated. s/p leela last night. Past Medical History: Unchanged from Admission Objective Active Medications: Atorvastatin Calcium (Lipitor*) 40 mg PO QPM [facility] Cinacalcet (Sensipar Tab*) 30 mg PO BID [facility] Furosemide (Lasix Tab*) 20 mg PO DAILY [facility] Heparin Sodium (Porcine) (Heparin Vial(*)) 5,000 units SUBCUT Q12HR [facility] Last Admin: 09/11/18 08:29 Dose: 5,000 units Hydralazine HCl (Apresoline Tab*) 25 mg PO TID [facility] Last Admin: 09/11/18 13:08 Dose: 25 mg Metoprolol Tartrate (Lopressor Tab*) 25 mg PO BID [facility] Last Admin: 09/11/18 08:28 Dose: 25 mg Potassium Chloride (Klor Con Er Tab*) 20 meq PO BID [facility] Spironolactone (Aldactone Tab*) 25 mg PO DAILY [facility] Vital Signs - 8 hr 09/11/18 09/11/18 08:12 12:14 Temperature 97.9 F 98.1 F Pulse Rate 78 101 Respiratory 20 19 Rate Blood Pressure 139/65 134/61 (mmHg) O2 Sat by Pulse 100 100 Oximetry Oxygen Devices in Use Now: None Appearance: awake. alert no distress pleasant Ears/Nose/Mouth/Throat: NL Teeth, Lips, Gums, Mucous Membranes Moist Neck: Trachea Midline Respiratory: Symmetrical Chest Expansion and Respiratory Effort Cardiovascular: NL Sounds; No Murmurs; No JVD Abdominal: NL Sounds; No Tenderness; No Distention Extremities: No Edema Result Diagrams: 09/11/18 06:25 09/11/18 06:25 Additional Lab and Data: Lab Results 09/10/18 09/10/18 09/10/18 Range/Units 22:48 23:08 23:08 WBC 9.9 (3.5-10.8) 10^3/uL RBC 4.91 H (3.70-4.87) 10^6 /uL Hgb 12.7 (12.0-16.0) g/dL Hct 40 (35-47) % MCV 81 (80-97) fL MCH 26 L (27-31) pg MCHC 32 (31-36) g/dL RDW 15 (10-15) % Plt Count 316 (150-450) 10^3/uL MPV 7.1 L (7.4-10.4) fL Neut % (Auto) 79.7 % Lymph % (Auto) 11.5 % [place] % (Auto) 7.1 % Eos % (Auto) 0.9 % Baso % (Auto) 0.8 % Absolute Neuts (auto) 7.9 H (1.5-7.7) 10^3/ul Absolute Lymphs (auto) 1.1 (1.0-4.8) 10^3/ul Absolute Monos (auto) 0.7 (0-0.8) 10^3/ul Absolute Eos (auto) 0.1 (0-0.6) 10^3/ul Absolute Basos (auto) 0.1 (0-0.2) 10^3/ul Absolute Nucleated RBC 0.0 10^3/ul Nucleated RBC % 0.0 INR (Anticoag Therapy) 1.57 H (0.82-1.09) APTT 40.4 H (26.0-38.0) seconds Sodium (135-145) mmol/L Potassium (3.5-5.0) mmol/L Chloride (101-111) mmol/L Carbon Dioxide (22-32) mmol/L Anion Gap (2-11) mmol/L BUN (6-24) mg/dL Creatinine (0.51-0.95) mg/dL Est GFR ( Amer) (>60) Est GFR (Non-Af Amer) (>60) BUN/Creatinine Ratio (8-20) Glucose (70-100) mg/dL Lactic Acid (0.5-2.0) mmol/L Calcium (8.6-10.3) mg/dL Total Bilirubin (0.2-1.0) mg/dL AST (13-39) U/L ALT (7-52) U/L Alkaline Phosphatase (34-104) U/L Troponin I (<0.04) ng/mL C-Reactive Protein (<8.01) mg/L B-Natriuretic Peptide (<=100) pg/mL Total Protein (6.4-8.9) g/dL Albumin (3.2-5.2) g/dL Globulin (2-4) g/dL Albumin/Globulin Ratio (1-3) PTH Intact (12-88) pg/mL Calcium (PTH Intact) (8.6-10.3) mg/dL Urine Color Yellow Urine Appearance Clear Urine pH 5.0 (5-9) Ur Specific [place] 1.018 (1.010-1.030) Urine Protein 2+(100 mg/dl) A (Negative) Urine Ketones Negative (Negative) Urine Blood 1+ A (Negative) Urine Nitrate Negative (Negative) Urine Bilirubin Negative (Negative) Urine Urobilinogen Negative (Negative) Ur Leukocyte Esterase Negative (Negative) Urine WBC (Auto) Trace(0-5/hpf) (Absent) Urine RBC (Auto) 2+(6-10/hpf) A (Absent) Urine Bacteria Absent (Absent) Hyaline Casts Present A (Absent) Urine Glucose Negative (Negative) Urine Ascorbic Acid * A (Negative) 09/10/18 09/10/18 09/10/18 Range/Units 23:08 23:08 23:08 WBC (3.5-10.8) 10^3/uL RBC (3.70-4.87) 10^6 /uL Hgb (12.0-16.0) g/dL Hct (35-47) % MCV (80-97) fL MCH (27-31) pg MCHC (31-36) g/dL RDW (10-15) % Plt Count (150-450) 10^3/uL MPV (7.4-10.4) fL Neut % (Auto) % Lymph % (Auto) % [place] % (Auto) % Eos % (Auto) % Baso % (Auto) % Absolute Neuts (auto) (1.5-7.7) 10^3/ul Absolute Lymphs (auto) (1.0-4.8) 10^3/ul Absolute Monos (auto) (0-0.8) 10^3/ul Absolute Eos (auto) (0-0.6) 10^3/ul Absolute Basos (auto) (0-0.2) 10^3/ul Absolute Nucleated RBC 10^3/ul Nucleated RBC % INR (Anticoag Therapy) (0.82-1.09) APTT (26.0-38.0) seconds Sodium 136 (135-145) mmol/L Potassium 4.3 (3.5-5.0) mmol/L Chloride 102 (101-111) mmol/L Carbon Dioxide 26 (22-32) mmol/L Anion Gap 8 (2-11) mmol/L BUN 30 H (6-24) mg/dL Creatinine 1.22 H (0.51-0.95) mg/dL Est GFR ( Amer) 50.8 (>60) Est GFR (Non-Af Amer) 42.0 (>60) BUN/Creatinine Ratio 24.6 H (8-20) Glucose 106 H (70-100) mg/dL Lactic Acid 1.1 (0.5-2.0) mmol/L Calcium 10.4 H (8.6-10.3) mg/dL Total Bilirubin 0.60 (0.2-1.0) mg/dL AST 20 (13-39) U/L ALT 18 (7-52) U/L Alkaline Phosphatase 87 (34-104) U/L Troponin I 0.01 (<0.04) ng/mL C-Reactive Protein 86.38 H (<8.01) mg/L B-Natriuretic Peptide 350 H (<=100) pg/mL Total Protein 7.7 (6.4-8.9) g/dL Albumin 3.3 (3.2-5.2) g/dL Globulin 4.4 H (2-4) g/dL Albumin/Globulin Ratio 0.8 L (1-3) PTH Intact (12-88) pg/mL Calcium (PTH Intact) (8.6-10.3) mg/dL Urine Color Urine Appearance Urine pH (5-9) Ur Specific [place] (1.010-1.030) Urine Protein (Negative) Urine Ketones (Negative) Urine Blood (Negative) Urine Nitrate (Negative) Urine Bilirubin (Negative) Urine Urobilinogen (Negative) Ur Leukocyte Esterase (Negative) Urine WBC (Auto) (Absent) Urine RBC (Auto) (Absent) Urine Bacteria (Absent) Hyaline Casts (Absent) Urine Glucose (Negative) Urine Ascorbic Acid (Negative) 09/10/18 Range/Units 23:08 WBC (3.5-10.8) 10^3/uL RBC (3.70-4.87) 10^6 /uL Hgb (12.0-16.0) g/dL Hct (35-47) % MCV (80-97) fL MCH (27-31) pg MCHC (31-36) g/dL RDW (10-15) % Plt Count (150-450) 10^3/uL MPV (7.4-10.4) fL Neut % (Auto) % Lymph % (Auto) % [place] % (Auto) % Eos % (Auto) % Baso % (Auto) % Absolute Neuts (auto) (1.5-7.7) 10^3/ul Absolute Lymphs (auto) (1.0-4.8) 10^3/ul Absolute Monos (auto) (0-0.8) 10^3/ul Absolute Eos (auto) (0-0.6) 10^3/ul Absolute Basos (auto) (0-0.2) 10^3/ul Absolute Nucleated RBC 10^3/ul Nucleated RBC % INR (Anticoag Therapy) (0.82-1.09) APTT (26.0-38.0) seconds Sodium (135-145) mmol/L Potassium (3.5-5.0) mmol/L Chloride (101-111) mmol/L Carbon Dioxide (22-32) mmol/L Anion Gap (2-11) mmol/L BUN (6-24) mg/dL Creatinine (0.51-0.95) mg/dL Est GFR ( Amer) (>60) Est GFR (Non-Af Amer) (>60) BUN/Creatinine Ratio (8-20) Glucose (70-100) mg/dL Lactic Acid (0.5-2.0) mmol/L Calcium (8.6-10.3) mg/dL Total Bilirubin (0.2-1.0) mg/dL AST (13-39) U/L ALT (7-52) U/L Alkaline Phosphatase (34-104) U/L Troponin I (<0.04) ng/mL C-Reactive Protein (<8.01) mg/L B-Natriuretic Peptide (<=100) pg/mL Total Protein (6.4-8.9) g/dL Albumin (3.2-5.2) g/dL Globulin (2-4) g/dL Albumin/Globulin Ratio (1-3) PTH Intact 116.9 H (12-88) pg/mL Calcium (PTH Intact) 9.9 (8.6-10.3) mg/dL Urine Color Urine Appearance Urine pH (5-9) Ur Specific [place] (1.010-1.030) Urine Protein (Negative) Urine Ketones (Negative) Urine Blood (Negative) Urine Nitrate (Negative) Urine Bilirubin (Negative) Urine Urobilinogen (Negative) Ur Leukocyte Esterase (Negative) Urine WBC (Auto) (Absent) Urine RBC (Auto) (Absent) Urine Bacteria (Absent) Hyaline Casts (Absent) Urine Glucose (Negative) Urine Ascorbic Acid (Negative) Diagnostic Imaging: CT Head Without Contrast IMPRESSION: 1. No acute intracranial pathology. ASPECTS score 10. 2. Other chronic findings, as above. Portable Chest X-ray Shows features of cardiomegaly but otherwise clear lungs. Official radiologist read pending. EKG Data: When compared to last months EKG patient still in A. Fib however the rate has increased to 92bpm today. Assess/Plan/Problems-Billing Assessment: - Patient Problems (1) Generalized weakness Current Visit: Yes Status: Acute Code(s): R53.1 - WEAKNESS SNOMED Code(s) : 54109617 Comment: Likely due to hypercalcemia (2) Hypercalcemia syndrome Current Visit: Yes Status: Acute Code(s): E83.52 - HYPERCALCEMIA SNOMED Code(s): 20531176 Comment: - History of parathyroidectomy however PTH elevated again. - s/p telma hydration given recent admission about a month ago for diastolic CHF - I will d/c IVF and resume her Lasix home regimen - Appreciate endocrinology input will follow up recommendation and treatment (3) Chronic atrial fibrillation Current Visit: No Status: Acute Code(s): I48.2 - CHRONIC ATRIAL FIBRILLATION SNOMED Code(s): 708409826 Comment: - Off anticoagulation after a fall. cont lopressor 25 mg bid for rate control. (4) DVT prophylaxis Current Visit: No Status: Acute Code(s): Z29.9 - ENCOUNTER FOR PROPHYLACTIC MEASURES, UNSPECIFIED SNOMED Code(s): 047044139 Comment: Heparin Subcut
[2018-09-11] MEDS: Atorvastatin* 40 MG TAB PO SCH (16:59)
[2018-09-11] MEDS: Furosemide TAB* 20 MG PO SCH (17:00)
[2018-09-11] MEDS: Cinacalcet TAB* 30 MG PO SCH (21:03)
[2018-09-11] MEDS: Potassium Chlor TAB* 20 MEQ TAB.ER PO SCH (21:03)
[2018-09-12 06:41] LABS: ABS Basophils 0.1 10^3/ul (0-0.2); ABS Eosinophils 0.1 10^3/ul (0-0.6); ABS Monocytes 0.5 10^3/ul (0-0.8); ABS Neutrophils 5.1 10^3/ul (1.5-7.7); Eosinophil % 2.1 %; Hematocrit 36 % (35-47); Hemoglobin 11.6 g/dL (12.0-16.0); Lymphocyte % 15.2 %; Mean Corpuscular HGB Conc 33 g/dL (31-36); Mean Corpuscular Hemoglobin 26 pg (27-31); Mean Corpuscular Volume 80 fL (80-97); Mean Platelet Volume 6.7 fL (7.4-10.4); Platelet Count 281 10^3/uL (150-450); Red Blood Count 4.45 10^6 /uL (3.70-4.87); Red Cell Distribution Width 15 % (10-15); White Blood Count 6.8 10^3/uL (3.5-10.8)
[2018-09-12 07:01] LABS: Albumin 2.9 g/dL (3.2-5.2); Albumin/Globulin Ratio 0.8 (1-3); BUN/Creatinine Ratio 17.3 (8-20); Calcium 8.6 mg/dL (8.6-10.3); EGFR African American 65.4 (>60); EGFR Non-African American 54.1 (>60); Globulin 3.6 g/dL (2-4); Potassium 3.8 mmol/L (3.5-5.0); Total Bilirubin 0.5 mg/dL (0.2-1.0); Total Protein 6.5 g/dL (6.4-8.9)
[2018-09-12] MEDS: Furosemide TAB* 20 MG PO SCH (08:58)
[2018-09-12] MEDS: Cinacalcet TAB* 30 MG PO SCH (08:59)
[2018-09-12] MEDS: Spironolactone TAB* 25 MG PO SCH (08:59)
[2018-09-12] MEDS: hydrALAZINE TAB* 25 MG PO SCH ×3 (08:59→20:38)
[2018-09-12] MEDS: Potassium Chlor TAB* 20 MEQ TAB.ER PO SCH ×2 (08:59→20:38)
[2018-09-12] MEDS: Heparin VIAL(*) 5000 UNITS/ML VIAL (FIVE THOUSAND) SUBCUT SCH ×2 (09:00→20:38)
[2018-09-12] MEDS: Metoprolol Tartrate TAB* 25 MG PO SCH ×2 (09:00→20:38)
--- NOTE | 2018-09-12 09:45 | PN ---
Subjective - Subjective Reason for Note: Consultation Note History: Endocrinology: She is sitting in a chair eating b'fast independently. She continues to have psychomotor slowing, but she is a little more present than yesterday. She denies other symptoms - she has no pain, fever, sweats. She denies coughing, sputum, chest pain, dyspnea. She has no digestive or urinary symptoms. Active Problems: Active Problems Acute kidney injury (Acute) N17.9 Start IV hydration. Hold home diuretic meds. Generalized weakness (Acute) R53.1 Likely due to hypercalcemia Hypercalcemia syndrome (Acute) E83.52 - History of parathyroidectomy however PTH elevated again. - s/p telma hydration given recent admission about a month ago for diastolic CHF - I will d/ c IVF and resume her Lasix home regimen - Appreciate endocrinology input will follow up recommendation and treatment Current Medications: Current Medications Atorvastatin Calcium (Lipitor*) 40 mg PO QPM [facility] Last Admin: 09/11/18 16:59 Dose: 40 mg Cinacalcet (Sensipar Tab*) 30 mg PO BID [facility] Last Admin: 09/12/18 08:59 Dose: 30 mg Furosemide (Lasix Tab*) 20 mg PO DAILY [facility] Last Admin: 09/12/18 08:58 Dose: 20 mg Heparin Sodium (Porcine) (Heparin Vial(*)) 5,000 units SUBCUT Q12HR [facility] Last Admin: 09/12/18 09:00 Dose: 5,000 units Hydralazine HCl (Apresoline Tab*) 25 mg PO TID [facility] Last Admin: 09/12/18 08:59 Dose: 25 mg Metoprolol Tartrate (Lopressor Tab*) 25 mg PO BID [facility] Last Admin: 09/12/18 09:00 Dose: 25 mg Potassium Chloride (Klor Con Er Tab*) 20 meq PO BID [facility] Last Admin: 09/12/18 08:59 Dose: 20 meq Spironolactone (Aldactone Tab*) 25 mg PO DAILY [facility] Last Admin: 09/12/18 08:59 Dose: 25 mg Home Medications: Home Medications Medication Instructions Recorded Confirmed Type Atorvastatin* [Lipitor 40 MG*] 40 mg PO QPM 08/01/18 09/11/18 History Calcium Carbonate CHEW TAB* [Tums*] 1,000 mg PO BID PRN 08/01/18 09/11/18 History Metoprolol Tartrate TAB* 25 mg PO BID 08/01/18 09/11/18 History [Lopressor TAB*] hydrALAZINE TAB* [Apresoline TAB*] 25 mg PO TID 08/01/18 09/10/18 History Furosemide TAB* [Lasix TAB*] 20 mg PO DAILY #30 tab 08/03/18 09/11/18 Rx Spironolactone TAB* [Aldactone TAB 25 mg PO DAILY #30 tab 08/03/18 09/11/18 Rx 25 MG*] Potassium Chlor TAB* [Klor Con ER 20 meq PO BID 09/10/18 09/11/18 History TAB*] Eliquis* 5 mg PO BID 09/11/18 09/11/18 History Allergies: Allergies Allergy/AdvReac Type Severity Reaction Status Date / Time Tetracyclines Allergy Unknown Verified 09/10/18 19:06 Reaction Details Objective - Vital Signs Vital Signs: Vital Signs 09/11/18 09/11/18 09/11/18 12:14 15:28 19:41 Temperature 98.1 F 98.1 F 98 F Pulse Rate 101 89 93 Respiratory 19 16 16 Rate Blood Pressure 134/61 144/87 147/75 (mmHg) O2 Sat by Pulse 100 100 98 Oximetry 09/11/18 09/11/18 09/12/18 20:00 23:15 03:25 Temperature 97.4 F 97.9 F Pulse Rate 77 83 Respiratory 18 20 18 Rate Blood Pressure 127/58 117/70 (mmHg) O2 Sat by Pulse 99 99 98 Oximetry - Intake and Output Intake and Output: Intake & Output 09/09/18 09/10/18 09/11/18 09/12/18 11:59 11:59 11:59 11:59 Intake Total 2350 1640 Output Total 0 700 Balance 2350 940 Weight 147 lb 156 lb 4.8 oz Intake: IV Fluids 2100 950 NS (0.9%) 950 Oral 250 690 Output: Urine 0 700 Other: Estimated Void Small # Voids 2 ADLs: Meal Record Start: 09/11/18 03: 56 Freq: DAILY@0900,1400,1800 Status: Active Protocol: Created 09/11/18 03:56 System (Rec: 09/11/18 03:56 System [id number]) Document 09/11/18 09:00 [id number] (Rec: 09/11/18 15:10 [id number]) Document 09/11/18 14:00 [id number] (Rec: 09/11/18 15:12 [id number] [email or web address]) Document 09/11/18 22:07 [id number] (Rec: 09/11/18 22:07 [id number]) Intake and Output Start: 09/10/18 19: 09 Freq: Status: Active Protocol: Created 09/10/18 19:09 System (Rec: 09/10/18 19:09 System [id number]) Intake and Output Start: 09/11/18 03: 56 Freq: DAILY@0600,1400,2200 Status: Active Protocol: Created 09/11/18 03:56 System (Rec: 09/11/18 03:56 System [email or web address]) Document 09/11/18 06:00 [id number] (Rec: 09/11/18 07:32 [id number]) Document 09/11/18 14:00 [id number] (Rec: 09/11/18 15:12 [id number] [email or web address]) Document 09/11/18 22:00 [id number] (Rec: 09/11/18 22:37 [id number]) Document 09/12/18 05:55 [id number] (Rec: 09/12/18 05:59 [email or web address]) Results - Results Lab Results: Laboratory Results - last 24 hr 09/11/18 09/11/18 09/12/18 09:48 09:49 06:28 WBC 6.8 RBC 4.45 Hgb 11.6 L Hct 36 MCV 80 MCH 26 L MCHC 33 RDW 15 Plt Count 281 MPV 6.7 L Neut % (Auto) 74.4 Lymph % (Auto) 15.2 [place] % (Auto) 7.4 Eos % (Auto) 2.1 Baso % (Auto) 0.9 Absolute Neuts (auto) 5.1 Absolute Lymphs (auto) 1.0 Absolute Monos (auto) 0.5 Absolute Eos (auto) 0.1 Absolute Basos (auto) 0.1 Absolute Nucleated RBC 0.0 Nucleated RBC % 0.0 Sodium Potassium Chloride Carbon Dioxide Anion Gap BUN Creatinine Est GFR ( Amer) Est GFR (Non-Af Amer) BUN/Creatinine Ratio Glucose Calcium Ionized Calcium 1.09 L Phosphorus 2.7 Total Bilirubin AST ALT Alkaline Phosphatase Total Protein Albumin Globulin Albumin/Globulin Ratio 25-OH Vitamin D Total 34.5 09/12/18 06:28 WBC RBC Hgb Hct MCV MCH MCHC RDW Plt Count MPV Neut % (Auto) Lymph % (Auto) [place] % (Auto) Eos % (Auto) Baso % (Auto) Absolute Neuts (auto) Absolute Lymphs (auto) Absolute Monos (auto) Absolute Eos (auto) Absolute Basos (auto) Absolute Nucleated RBC Nucleated RBC % Sodium 137 Potassium 3.8 Chloride 106 Carbon Dioxide 25 Anion Gap 6 BUN 17 Creatinine 0.98 H Est GFR ( Amer) 65.4 Est GFR (Non-Af Amer) 54.1 BUN/Creatinine Ratio 17.3 Glucose 87 Calcium 8.6 Ionized Calcium Phosphorus Total Bilirubin 0.50 AST 19 ALT 17 Alkaline Phosphatase 73 Total Protein 6.5 Albumin 2.9 L Globulin 3.6 Albumin/Globulin Ratio 0.8 L 25-OH Vitamin D Total Assessment - Problem List Assessment: Patient Problems Acute kidney injury (Acute) Generalized weakness (Acute) Hypercalcemia syndrome (Acute) Chronic atrial fibrillation (Acute) DVT prophylaxis (Acute) SOB (shortness of breath) (Acute) Plan: Review of records from [facility]: We have the operative note, the operative rapid PTH assays and the pathology. 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 Her rapid PTH level went from pre-op value 337 pg/ml (12 - 72) , perioperative values: 203, 159, 110. Pathology: "Hypercellular parathyroid ( 2.065 g) consistent with adenoma. Today her calcium is 8.5 mg/dl - the lower end of the reference range. I am surprised at how rapidly it has come down. I will reduce her cinacalcet to 30 mg qdaily - and hope she doesn't become hypocalcemic. Her 25 OH vit D level is adequate. She continues to have psychomotor retardation and is not back to her baseline. This is either because the brain takes a while to re-equilibrate after this episode of hypercalcemia (she had the same symptoms with her previous hyperparathyroidism) or because there is another cause of her delirium. I spoke to Alex, her son-in-law and shared our current information. He agrees with the management plan.
--- NOTE | 2018-09-12 15:36 | PN ---
Subjective Date of Service: 09/12/18 Interval History: Patient was seen this afternoon after her thyroid ultra sound and parathyroid scan. when asked how she is she responded not good "hungry". otherwise she did walk with a walker, able to answer most question appropriately Past Medical History: Unchanged from Admission Objective Active Medications: Atorvastatin Calcium (Lipitor*) 40 mg PO QPM [facility] Last Admin: 09/11/18 16:59 Dose: 40 mg Cinacalcet (Sensipar Tab*) 30 mg PO DAILY [facility] Furosemide (Lasix Tab*) 20 mg PO DAILY [facility] Last Admin: 09/12/18 08:58 Dose: 20 mg Heparin Sodium (Porcine) (Heparin Vial(*)) 5,000 units SUBCUT Q12HR [facility] Last Admin: 09/12/18 09:00 Dose: 5,000 units Hydralazine HCl (Apresoline Tab*) 25 mg PO TID [facility] Last Admin: 09/12/18 15:11 Dose: 25 mg Metoprolol Tartrate (Lopressor Tab*) 25 mg PO BID [facility] Last Admin: 09/12/18 09:00 Dose: 25 mg Potassium Chloride (Klor Con Er Tab*) 20 meq PO BID [facility] Last Admin: 09/12/18 08:59 Dose: 20 meq Spironolactone (Aldactone Tab*) 25 mg PO DAILY [facility] Last Admin: 09/12/18 08:59 Dose: 25 mg Vital Signs - 8 hr 09/12/18 09/12/18 09/12/18 07:38 10:44 12:24 Temperature 97.8 F 98.1 F Pulse Rate 93 88 Respiratory 20 20 Rate Blood Pressure 157/106 134/77 127/89 (mmHg) O2 Sat by Pulse 98 98 Oximetry 09/12/18 15:07 Temperature 97.9 F Pulse Rate 81 Respiratory 22 Rate Blood Pressure 154/94 (mmHg) O2 Sat by Pulse 100 Oximetry Oxygen Devices in Use Now: None Appearance: awake. alert oriented to place, person. reading newspaper Eyes: No Scleral Icterus, - - EOMI Ears/Nose/Mouth/Throat: NL Teeth, Lips, Gums, Mucous Membranes Moist Neck: NL Appearance and Movements; NL JVP, Trachea Midline Respiratory: Symmetrical Chest Expansion and Respiratory Effort, Clear to Auscultation Cardiovascular: NL Sounds; No Murmurs; No JVD, No Edema Abdominal: NL Sounds; No Tenderness; No Distention Extremities: No Edema Neurological: Alert and Oriented x 3 Result Diagrams: 09/12/18 06:28 09/12/18 06:28 Additional Lab and Data: Lab Results 09/10/18 09/10/18 09/10/18 Range/Units 22:48 23:08 23:08 WBC 9.9 (3.5-10.8) 10^3/uL RBC 4.91 H (3.70-4.87) 10^6 /uL Hgb 12.7 (12.0-16.0) g/dL Hct 40 (35-47) % MCV 81 (80-97) fL MCH 26 L (27-31) pg MCHC 32 (31-36) g/dL RDW 15 (10-15) % Plt Count 316 (150-450) 10^3/uL MPV 7.1 L (7.4-10.4) fL Neut % (Auto) 79.7 % Lymph % (Auto) 11.5 % [place] % (Auto) 7.1 % Eos % (Auto) 0.9 % Baso % (Auto) 0.8 % Absolute Neuts (auto) 7.9 H (1.5-7.7) 10^3/ul Absolute Lymphs (auto) 1.1 (1.0-4.8) 10^3/ul Absolute Monos (auto) 0.7 (0-0.8) 10^3/ul Absolute Eos (auto) 0.1 (0-0.6) 10^3/ul Absolute Basos (auto) 0.1 (0-0.2) 10^3/ul Absolute Nucleated RBC 0.0 10^3/ul Nucleated RBC % 0.0 INR (Anticoag Therapy) 1.57 H (0.82-1.09) APTT 40.4 H (26.0-38.0) seconds Sodium (135-145) mmol/L Potassium (3.5-5.0) mmol/L Chloride (101-111) mmol/L Carbon Dioxide (22-32) mmol/L Anion Gap (2-11) mmol/L BUN (6-24) mg/dL Creatinine (0.51-0.95) mg/dL Est GFR ( Amer) (>60) Est GFR (Non-Af Amer) (>60) BUN/Creatinine Ratio (8-20) Glucose (70-100) mg/dL Lactic Acid (0.5-2.0) mmol/L Calcium (8.6-10.3) mg/dL Total Bilirubin (0.2-1.0) mg/dL AST (13-39) U/L ALT (7-52) U/L Alkaline Phosphatase (34-104) U/L Troponin I (<0.04) ng/mL C-Reactive Protein (<8.01) mg/L B-Natriuretic Peptide (<=100) pg/mL Total Protein (6.4-8.9) g/dL Albumin (3.2-5.2) g/dL Globulin (2-4) g/dL Albumin/Globulin Ratio (1-3) PTH Intact (12-88) pg/mL Calcium (PTH Intact) (8.6-10.3) mg/dL Urine Color Yellow Urine Appearance Clear Urine pH 5.0 (5-9) Ur Specific [place] 1.018 (1.010-1.030) Urine Protein 2+(100 mg/dl) A (Negative) Urine Ketones Negative (Negative) Urine Blood 1+ A (Negative) Urine Nitrate Negative (Negative) Urine Bilirubin Negative (Negative) Urine Urobilinogen Negative (Negative) Ur Leukocyte Esterase Negative (Negative) Urine WBC (Auto) Trace(0-5/hpf) (Absent) Urine RBC (Auto) 2+(6-10/hpf) A (Absent) Urine Bacteria Absent (Absent) Hyaline Casts Present A (Absent) Urine Glucose Negative (Negative) Urine Ascorbic Acid * A (Negative) 09/10/18 09/10/18 09/10/18 Range/Units 23:08 23:08 23:08 WBC (3.5-10.8) 10^3/uL RBC (3.70-4.87) 10^6 /uL Hgb (12.0-16.0) g/dL Hct (35-47) % MCV (80-97) fL MCH (27-31) pg MCHC (31-36) g/dL RDW (10-15) % Plt Count (150-450) 10^3/uL MPV (7.4-10.4) fL Neut % (Auto) % Lymph % (Auto) % [place] % (Auto) % Eos % (Auto) % Baso % (Auto) % Absolute Neuts (auto) (1.5-7.7) 10^3/ul Absolute Lymphs (auto) (1.0-4.8) 10^3/ul Absolute Monos (auto) (0-0.8) 10^3/ul Absolute Eos (auto) (0-0.6) 10^3/ul Absolute Basos (auto) (0-0.2) 10^3/ul Absolute Nucleated RBC 10^3/ul Nucleated RBC % INR (Anticoag Therapy) (0.82-1.09) APTT (26.0-38.0) seconds Sodium 136 (135-145) mmol/L Potassium 4.3 (3.5-5.0) mmol/L Chloride 102 (101-111) mmol/L Carbon Dioxide 26 (22-32) mmol/L Anion Gap 8 (2-11) mmol/L BUN 30 H (6-24) mg/dL Creatinine 1.22 H (0.51-0.95) mg/dL Est GFR ( Amer) 50.8 (>60) Est GFR (Non-Af Amer) 42.0 (>60) BUN/Creatinine Ratio 24.6 H (8-20) Glucose 106 H (70-100) mg/dL Lactic Acid 1.1 (0.5-2.0) mmol/L Calcium 10.4 H (8.6-10.3) mg/dL Total Bilirubin 0.60 (0.2-1.0) mg/dL AST 20 (13-39) U/L ALT 18 (7-52) U/L Alkaline Phosphatase 87 (34-104) U/L Troponin I 0.01 (<0.04) ng/mL C-Reactive Protein 86.38 H (<8.01) mg/L B-Natriuretic Peptide 350 H (<=100) pg/mL Total Protein 7.7 (6.4-8.9) g/dL Albumin 3.3 (3.2-5.2) g/dL Globulin 4.4 H (2-4) g/dL Albumin/Globulin Ratio 0.8 L (1-3) PTH Intact (12-88) pg/mL Calcium (PTH Intact) (8.6-10.3) mg/dL Urine Color Urine Appearance Urine pH (5-9) Ur Specific [place] (1.010-1.030) Urine Protein (Negative) Urine Ketones (Negative) Urine Blood (Negative) Urine Nitrate (Negative) Urine Bilirubin (Negative) Urine Urobilinogen (Negative) Ur Leukocyte Esterase (Negative) Urine WBC (Auto) (Absent) Urine RBC (Auto) (Absent) Urine Bacteria (Absent) Hyaline Casts (Absent) Urine Glucose (Negative) Urine Ascorbic Acid (Negative) 09/10/18 Range/Units 23:08 WBC (3.5-10.8) 10^3/uL RBC (3.70-4.87) 10^6 /uL Hgb (12.0-16.0) g/dL Hct (35-47) % MCV (80-97) fL MCH (27-31) pg MCHC (31-36) g/dL RDW (10-15) % Plt Count (150-450) 10^3/uL MPV (7.4-10.4) fL Neut % (Auto) % Lymph % (Auto) % [place] % (Auto) % Eos % (Auto) % Baso % (Auto) % Absolute Neuts (auto) (1.5-7.7) 10^3/ul Absolute Lymphs (auto) (1.0-4.8) 10^3/ul Absolute Monos (auto) (0-0.8) 10^3/ul Absolute Eos (auto) (0-0.6) 10^3/ul Absolute Basos (auto) (0-0.2) 10^3/ul Absolute Nucleated RBC 10^3/ul Nucleated RBC % INR (Anticoag Therapy) (0.82-1.09) APTT (26.0-38.0) seconds Sodium (135-145) mmol/L Potassium (3.5-5.0) mmol/L Chloride (101-111) mmol/L Carbon Dioxide (22-32) mmol/L Anion Gap (2-11) mmol/L BUN (6-24) mg/dL Creatinine (0.51-0.95) mg/dL Est GFR ( Amer) (>60) Est GFR (Non-Af Amer) (>60) BUN/Creatinine Ratio (8-20) Glucose (70-100) mg/dL Lactic Acid (0.5-2.0) mmol/L Calcium (8.6-10.3) mg/dL Total Bilirubin (0.2-1.0) mg/dL AST (13-39) U/L ALT (7-52) U/L Alkaline Phosphatase (34-104) U/L Troponin I (<0.04) ng/mL C-Reactive Protein (<8.01) mg/L B-Natriuretic Peptide (<=100) pg/mL Total Protein (6.4-8.9) g/dL Albumin (3.2-5.2) g/dL Globulin (2-4) g/dL Albumin/Globulin Ratio (1-3) PTH Intact 116.9 H (12-88) pg/mL Calcium (PTH Intact) 9.9 (8.6-10.3) mg/dL Urine Color Urine Appearance Urine pH (5-9) Ur Specific [place] (1.010-1.030) Urine Protein (Negative) Urine Ketones (Negative) Urine Blood (Negative) Urine Nitrate (Negative) Urine Bilirubin (Negative) Urine Urobilinogen (Negative) Ur Leukocyte Esterase (Negative) Urine WBC (Auto) (Absent) Urine RBC (Auto) (Absent) Urine Bacteria (Absent) Hyaline Casts (Absent) Urine Glucose (Negative) Urine Ascorbic Acid (Negative) Microbiology and Other Data: Microbiology 09/10/18 22:48 Urine Culture - Final Urine No Growth (<1,000 CFU/mL) 09/10/18 23:08 Aerobic Blood Culture - Preliminary Blood Venous No Growth Day 1 Anaerobic Blood Culture - Preliminary No Growth Day 1 09/10/18 23:10 Aerobic Blood Culture - Preliminary Blood Venous No Growth Day 1 Anaerobic Blood Culture - Preliminary No Growth Day 1 Diagnostic Imaging: CT Head Without Contrast IMPRESSION: 1. No acute intracranial pathology. ASPECTS score 10. 2. Other chronic findings, as above. Portable Chest X-ray Shows features of cardiomegaly but otherwise clear lungs. Official radiologist read pending. EKG Data: When compared to last months EKG patient still in A. Fib however the rate has increased to 92bpm today. Assess/Plan/Problems-Billing Assessment: 82 y/o female admitted for altered mental status contributed to hypercalcemia. s/p Reclast and now on sensipar. Endocrinology input appreciated. s/p US of thyorid and parathyroid scan - Patient Problems (1) Altered mental status Current Visit: Yes Status: Acute Code(s): R41.82 - ALTERED MENTAL STATUS, UNSPECIFIED SNOMED Code(s): 812527517 Comment: - Secondary to hypercalcemia, improving - Also it should be noted that she does have prominent ventricles on CT brain on admission. Thius suggest possible underlying and undiagnosed mild form of dementia. Given the acute illness, (in this setting hypercalcemia) it can make her mental status worse which can manifest with reversible delerium. (2) Generalized weakness Current Visit: Yes Status: Acute Code(s): R53.1 - WEAKNESS SNOMED Code(s) : 47839904 Comment: - Likely due to hypercalcemia - Working with PT and she demonstrated improvement but will benefit from continuing PT (3) Hypercalcemia syndrome Current Visit: Yes Status: Acute Code(s): E83.52 - HYPERCALCEMIA SNOMED Code(s): 32928187 Comment: - History of parathyroidectomy however PTH elevated again. - s/p telma hydration given recent admission about a month ago for diastolic CHF - I did d/c IVF and resumed her Lasix home regimen - Appreciate endocrinology input will follow up recommendation and treatment (4) Chronic atrial fibrillation Current Visit: No Status: Acute Code(s): I48.2 - CHRONIC ATRIAL FIBRILLATION SNOMED Code(s): 958777138 Comment: - Off anticoagulation after a fall. cont lopressor 25 mg bid for rate control. (5) DVT prophylaxis Current Visit: No Status: Acute Code(s): Z29.9 - ENCOUNTER FOR PROPHYLACTIC MEASURES, UNSPECIFIED SNOMED Code(s): 526834001 Comment: Heparin Subcut
[2018-09-12] MEDS: Atorvastatin* 40 MG TAB PO SCH (17:37)
--- NOTE | 2018-09-13 08:07 | PN ---
Subjective - Subjective Reason for Note: Consultation Note History: Endocrinology: Patient asleep when I entered - I decided not to wake her. Active Problems: Active Problems Acute kidney injury (Acute) N17.9 Start IV hydration. Hold home diuretic meds. Altered mental status (Acute) R41.82 - Secondary to hypercalcemia, improving - Also it should be noted that she does have prominent ventricles on CT brain on admission. Thius suggest possible underlying and undiagnosed mild form of dementia. Given the acute illness, (in this setting hypercalcemia) it can make her mental status worse which can manifest with reversible delerium. Generalized weakness (Acute) R53.1 - Likely due to hypercalcemia - Working with PT and she demonstrated improvement but will benefit from continuing PT Hypercalcemia syndrome (Acute) E83.52 - History of parathyroidectomy however PTH elevated again. - s/p telma hydration given recent admission about a month ago for diastolic CHF - I did d/ c IVF and resumed her Lasix home regimen - Appreciate endocrinology input will follow up recommendation and treatment Primary hyperparathyroidism (Acute) E21.0 Current Medications: Current Medications Atorvastatin Calcium (Lipitor*) 40 mg PO QPM [facility] Last Admin: 09/12/18 17:37 Dose: 40 mg Cinacalcet (Sensipar Tab*) 30 mg PO DAILY [facility] Furosemide (Lasix Tab*) 20 mg PO DAILY [facility] Last Admin: 09/12/18 08:58 Dose: 20 mg Heparin Sodium (Porcine) (Heparin Vial(*)) 5,000 units SUBCUT Q12HR [facility] Last Admin: 09/12/18 20:38 Dose: 5,000 units Hydralazine HCl (Apresoline Tab*) 25 mg PO TID [facility] Last Admin: 09/12/18 20:38 Dose: 25 mg Metoprolol Tartrate (Lopressor Tab*) 25 mg PO BID [facility] Last Admin: 09/12/18 20:38 Dose: 25 mg Potassium Chloride (Klor Con Er Tab*) 20 meq PO BID [facility] Last Admin: 09/12/18 20:38 Dose: 20 meq Spironolactone (Aldactone Tab*) 25 mg PO DAILY [facility] Last Admin: 09/12/18 08:59 Dose: 25 mg Home Medications: Home Medications Medication Instructions Recorded Confirmed Type Atorvastatin* [Lipitor 40 MG*] 40 mg PO QPM 08/01/18 09/11/18 History Calcium Carbonate CHEW TAB* [Tums*] 1,000 mg PO BID PRN 08/01/18 09/11/18 History Metoprolol Tartrate TAB* 25 mg PO BID 08/01/18 09/11/18 History [Lopressor TAB*] hydrALAZINE TAB* [Apresoline TAB*] 25 mg PO TID 08/01/18 09/10/18 History Furosemide TAB* [Lasix TAB*] 20 mg PO DAILY #30 tab 08/03/18 09/11/18 Rx Spironolactone TAB* [Aldactone TAB 25 mg PO DAILY #30 tab 08/03/18 09/11/18 Rx 25 MG*] Potassium Chlor TAB* [Klor Con ER 20 meq PO BID 09/10/18 09/11/18 History TAB*] Eliquis* 5 mg PO BID 09/11/18 09/11/18 History Allergies: Allergies Allergy/AdvReac Type Severity Reaction Status Date / Time Tetracyclines Allergy Unknown Verified 09/10/18 19:06 Reaction Details Objective - Vital Signs Vital Signs: Vital Signs 09/12/18 09/12/18 09/12/18 10:44 12:24 15:07 Temperature 98.1 F 97.9 F Pulse Rate 88 81 Respiratory 20 22 Rate Blood Pressure 134/77 127/89 154/94 (mmHg) O2 Sat by Pulse 98 100 Oximetry 09/12/18 09/12/18 09/12/18 19:26 20:00 23:02 Temperature 97.8 F 97.4 F Pulse Rate 94 72 Respiratory 18 18 24 Rate Blood Pressure 128/61 129/69 (mmHg) O2 Sat by Pulse 98 98 99 Oximetry 09/13/18 03:20 Temperature 97.6 F Pulse Rate 76 Respiratory 22 Rate Blood Pressure 142/75 (mmHg) O2 Sat by Pulse 99 Oximetry - Intake and Output Intake and Output: Intake & Output 09/10/18 09/11/18 09/12/18 09/13/18 11:59 11:59 11:59 11:59 Intake Total 2350 1880 360 Output Total 0 700 0 Balance 2350 1180 360 Weight 147 lb 156 lb 4.8 oz Intake: IV Fluids 2100 950 NS (0.9%) 950 Oral 250 930 360 Output: Urine 0 700 0 Other: Estimated Void Small Medium # Voids 2 1 ADLs: Meal Record Start: 09/11/18 03: 56 Freq: DAILY@0900,1400,1800 Status: Active Protocol: Created 09/11/18 03:56 System (Rec: 09/11/18 03:56 System [id number]) Document 09/11/18 09:00 [id number] (Rec: 09/11/18 15:10 [id number] TELE-C09) Document 09/11/18 14:00 [id number] (Rec: 09/11/18 15:12 [id number] TELE-C09) Document 09/11/18 22:07 [id number] (Rec: 09/11/18 22:07 [id number] TELE-C02) Document 09/12/18 09:00 [id number] (Rec: 09/12/18 13:10 [id number] TELE-M06) Document 09/12/18 14:00 [id number] (Rec: 09/12/18 14:31 [id number] TELE-M06) Document 09/12/18 18:00 [id number] (Rec: 09/12/18 20:49 [id number] TELE-C01) Intake and Output Start: 09/10/18 19: 09 Freq: Status: Active Protocol: Created 09/10/18 19:09 System (Rec: 09/10/18 19:09 System [id number]) Intake and Output Start: 09/11/18 03: 56 Freq: DAILY@0600,1400,2200 Status: Active Protocol: Created 09/11/18 03:56 System (Rec: 09/11/18 03:56 System TELE-C09) Document 09/11/18 06:00 [id number] (Rec: 09/11/18 07:32 [id number] TELE-M06) Document 09/11/18 14:00 [id number] (Rec: 09/11/18 15:12 [id number] TELE-C09) Document 09/11/18 22:00 [id number] (Rec: 09/11/18 22:37 [id number] TELE-C09) Document 09/12/18 05:55 [id number] (Rec: 09/12/18 05:59 [id number] TELE-C09) Document 09/12/18 14:00 [id number] (Rec: 09/12/18 14:32 [id number] TELE-M06) Document 09/12/18 21:35 [id number] (Rec: 09/12/18 21:37 [id number] TELE-C01) Document 09/13/18 05:36 [id number] (Rec: 09/13/18 05:37 TELE-C03) Results - Results Radiology Results: Patient Name: RANDALL SPRAGUE Medical Record#: [id number] Ordering Physician: Tobi Lennon MD Acct.#: [id number] : 1935 Age: 82 Sex: F Location: [address] [place] [address] MEDICAL/TELEMETRY Exam Date: 09/12/18911 ADM Status: ADM IN Order Information: US THYROID Accession Number: [id number] CPT: 51241 INDICATION: Recurrent hyperparathyroidism. COMPARISON: Comparison is made with a nuclear medicine parathyroid scan. TECHNIQUE: Multiple real-time images of the thyroid gland were obtained including color flow Doppler images. FINDINGS: The thyroid lobes are heterogeneous in echogenicity. The right lobe measured 3.8 x 2.0 x 1.6 cm and the left lobe measured 5.7 1.9 x 1.7 cm. The thyroid isthmus measured 1.0 cm in thickness. RIGHT LOBE: There is a complex cystic and solid nodule in the inferior portion of the lobe measuring 0.7 x 0.5 x 0.8 cm. LEFT LOBE: There is a solid heterogeneous nodule in the inferior portion of the lobe measuring 2.7 x 2.1 x 2.2 cm. ISTHMUS: There are no nodules present within the thyroid isthmus. No solid nodules suggestive of a parathyroid adenoma are visualized. IMPRESSION: 1. NO EVIDENCE FOR PARATHYROID ADENOMA. 2. RECOMMEND FINE-NEEDLE ASPIRATION OF THE [place] 2.7 CM SOLID NODULE IN THE INFERIOR PORTION OF THE LEFT THYROID LOBE. <Electronically signed by Clem Harris MD in [place]> 09/12/18 1530 Dictated By: Clem Harris MD Dictated Date/Time: 09/12/18 1530 Transcribed Date/Time: 09/12/18 1526 Copy to:\ Patient Name: RANDALL SPRAGUE Medical Record#: [id number] Ordering Physician: Tobi Lennon MD Acct.#: [id number] : 1935 Age: 82 Sex: F Location: [address] [place] [address] MEDICAL/TELEMETRY Exam Date: 09/12/18912 ADM Status: ADM IN Order Information: NM PARATHYROID W/ SPECT Accession Number: [id number] CPT: 16918 INDICATION: Hyperparathyroidism. Comparison: Correlation is made with a thyroid ultrasound of the same date. Technique: The patient was given 0.5 mCi of I-123 orally in capsule form. The patient returned 2 hours later was given an intravenous injection of 24.7 mCi of technetium 99m sestamibi and multiple images of the neck and chest were obtained in the anterior and oblique projections at approximately 15 minutes and 2 hours postinjection with parallel and pinhole collimators. There was simultaneous acquisition of both the I-123 and technetium 99m sestamibi images during the early phase allowing subtraction of the images. In addition, SPECT images of the neck were obtained and reconstructed in the axial, sagittal and coronal planes centered on the technetium window at the time of the delayed images. FINDINGS: There is normal distribution of radiopharmaceutical in the neck and mediastinum. There is a nodule with relative intense activity in the left axilla. IMPRESSION: 1. NO EVIDENCE FOR PARATHYROID ADENOMA. 2. THERE IS A NODULE WITH RELATIVE INTENSE ACTIVITY IN THE INFERIOR PORTION OF THE LEFT AXILLA. RECOMMEND AN AXILLARY ULTRASOUND FOR FURTHER EVALUATION. <Electronically signed by Clem Harris MD in [place]> 09/12/18 152 Dictated By: Clem Harris MD Dictated Date/Time: 09/12/18 1523 Transcribed Date/Time: 09/12/18 1513 Copy to: CC:Tobi Lennon MD; Eric Stock MD; Jarred Guevara MD; No Primary Care Phys, NOPCP Imaging - [facility] Imaging - [facility] Imaging [facility] [id number] [place] [id number] ph ([phone]) ph ([phone]) ph ([phone]) Assessment - Problem List Assessment: Patient Problems Acute kidney injury (Acute) Altered mental status (Acute) Generalized weakness (Acute) Hypercalcemia syndrome (Acute) Primary hyperparathyroidism (Acute) Chronic atrial fibrillation (Acute) DVT prophylaxis (Acute) SOB (shortness of breath) (Acute) Plan: Hypercalcemia syndrome (Acute) Primary hyperparathyroidism (Acute) I reviewed the US thyroid. There is no evidence of a parathyroid adenoma. There is a dominant nodule in the inferior portion of the left thyroid lobe. This is an intermediate suspicion nodule. I recommend a [facility] at [facility] after discharge. This is an incidental finding and not an acute problem. I reviewed the NM parathyroid scan. There is no evidence of an adenoma. There is an incidental finding of increased uptake of technetium in the left axilla - I will order an US as suggested. Today's labs are pending. I will review them, but anticipate her calcium to be in the reference range with the cinacalcet. Altered mental status (Acute) Generalized weakness (Acute) This may be multifactorial - even though it resembles her presentation with primary hyperparathyroidism earlier this year. Phone call to Alex Navarro: I updated him. He was unaware of the left thyroid nodule.
[2018-09-13] MEDS: Furosemide TAB* 20 MG PO SCH (09:48)
[2018-09-13] MEDS: Metoprolol Tartrate TAB* 25 MG PO SCH ×2 (09:48→20:07)
[2018-09-13] MEDS: hydrALAZINE TAB* 25 MG PO SCH ×3 (09:48→20:05)
[2018-09-13] MEDS: Potassium Chlor TAB* 20 MEQ TAB.ER PO SCH ×2 (09:48→20:07)
[2018-09-13] MEDS: Spironolactone TAB* 25 MG PO SCH (09:48)
[2018-09-13] MEDS: Cinacalcet TAB* 30 MG PO SCH (09:48)
[2018-09-13] MEDS: Heparin VIAL(*) 5000 UNITS/ML VIAL (FIVE THOUSAND) SUBCUT SCH ×2 (09:48→20:04)
[2018-09-13 10:18] LABS: Calcitriol 22 pg/mL (18-78)
--- NOTE | 2018-09-13 17:19 | PN ---
Subjective Date of Service: 09/13/18 Interval History: patient seen today, she is ambulating doing well. Us of thyroid showed thyroid nodule. family were updated by Dr. Lennon. Us of axilla was ordered. result suggest benign finding. At this time patient would like to go back home. I will follow up final recommendation from endocrinology and family regarding safe dispo planing Past Medical History: Unchanged from Admission Objective Active Medications: Atorvastatin Calcium (Lipitor*) 40 mg PO QPM [facility] Last Admin: 09/12/18 17:37 Dose: 40 mg Cinacalcet (Sensipar Tab*) 30 mg PO DAILY [facility] Last Admin: 09/13/18 09:48 Dose: 30 mg Furosemide (Lasix Tab*) 20 mg PO DAILY [facility] Last Admin: 09/13/18 09:48 Dose: 20 mg Heparin Sodium (Porcine) (Heparin Vial(*)) 5,000 units SUBCUT Q12HR [facility] Last Admin: 09/13/18 09:48 Dose: 5,000 units Hydralazine HCl (Apresoline Tab*) 25 mg PO TID [facility] Last Admin: 09/13/18 14:33 Dose: 25 mg Metoprolol Tartrate (Lopressor Tab*) 25 mg PO BID [facility] Last Admin: 09/13/18 09:48 Dose: 25 mg Potassium Chloride (Klor Con Er Tab*) 20 meq PO BID [facility] Last Admin: 09/13/18 09:48 Dose: 20 meq Spironolactone (Aldactone Tab*) 25 mg PO DAILY [facility] Last Admin: 09/13/18 09:48 Dose: 25 mg Oxygen Devices in Use Now: None Appearance: awake, alert no distress, flat affect Eyes: No Scleral Icterus Ears/Nose/Mouth/Throat: NL Teeth, Lips, Gums Neck: NL Appearance and Movements; NL JVP, Trachea Midline Respiratory: Symmetrical Chest Expansion and Respiratory Effort, Clear to Auscultation Abdominal: NL Sounds; No Tenderness; No Distention Extremities: No Edema Neurological: - - oriented to place and person Result Diagrams: 09/12/18 06:28 09/12/18 06:28 Additional Lab and Data: Lab Results 09/10/18 09/10/18 09/10/18 Range/Units 22:48 23:08 23:08 WBC 9.9 (3.5-10.8) 10^3/uL RBC 4.91 H (3.70-4.87) 10^6 /uL Hgb 12.7 (12.0-16.0) g/dL Hct 40 (35-47) % MCV 81 (80-97) fL MCH 26 L (27-31) pg MCHC 32 (31-36) g/dL RDW 15 (10-15) % Plt Count 316 (150-450) 10^3/uL MPV 7.1 L (7.4-10.4) fL Neut % (Auto) 79.7 % Lymph % (Auto) 11.5 % [place] % (Auto) 7.1 % Eos % (Auto) 0.9 % Baso % (Auto) 0.8 % Absolute Neuts (auto) 7.9 H (1.5-7.7) 10^3/ul Absolute Lymphs (auto) 1.1 (1.0-4.8) 10^3/ul Absolute Monos (auto) 0.7 (0-0.8) 10^3/ul Absolute Eos (auto) 0.1 (0-0.6) 10^3/ul Absolute Basos (auto) 0.1 (0-0.2) 10^3/ul Absolute Nucleated RBC 0.0 10^3/ul Nucleated RBC % 0.0 INR (Anticoag Therapy) 1.57 H (0.82-1.09) APTT 40.4 H (26.0-38.0) seconds Sodium (135-145) mmol/L Potassium (3.5-5.0) mmol/L Chloride (101-111) mmol/L Carbon Dioxide (22-32) mmol/L Anion Gap (2-11) mmol/L BUN (6-24) mg/dL Creatinine (0.51-0.95) mg/dL Est GFR ( Amer) (>60) Est GFR (Non-Af Amer) (>60) BUN/Creatinine Ratio (8-20) Glucose (70-100) mg/dL Lactic Acid (0.5-2.0) mmol/L Calcium (8.6-10.3) mg/dL Total Bilirubin (0.2-1.0) mg/dL AST (13-39) U/L ALT (7-52) U/L Alkaline Phosphatase (34-104) U/L Troponin I (<0.04) ng/mL C-Reactive Protein (<8.01) mg/L B-Natriuretic Peptide (<=100) pg/mL Total Protein (6.4-8.9) g/dL Albumin (3.2-5.2) g/dL Globulin (2-4) g/dL Albumin/Globulin Ratio (1-3) PTH Intact (12-88) pg/mL Calcium (PTH Intact) (8.6-10.3) mg/dL Urine Color Yellow Urine Appearance Clear Urine pH 5.0 (5-9) Ur Specific [place] 1.018 (1.010-1.030) Urine Protein 2+(100 mg/dl) A (Negative) Urine Ketones Negative (Negative) Urine Blood 1+ A (Negative) Urine Nitrate Negative (Negative) Urine Bilirubin Negative (Negative) Urine Urobilinogen Negative (Negative) Ur Leukocyte Esterase Negative (Negative) Urine WBC (Auto) Trace(0-5/hpf) (Absent) Urine RBC (Auto) 2+(6-10/hpf) A (Absent) Urine Bacteria Absent (Absent) Hyaline Casts Present A (Absent) Urine Glucose Negative (Negative) Urine Ascorbic Acid * A (Negative) 09/10/18 09/10/18 09/10/18 Range/Units 23:08 23:08 23:08 WBC (3.5-10.8) 10^3/uL RBC (3.70-4.87) 10^6 /uL Hgb (12.0-16.0) g/dL Hct (35-47) % MCV (80-97) fL MCH (27-31) pg MCHC (31-36) g/dL RDW (10-15) % Plt Count (150-450) 10^3/uL MPV (7.4-10.4) fL Neut % (Auto) % Lymph % (Auto) % [place] % (Auto) % Eos % (Auto) % Baso % (Auto) % Absolute Neuts (auto) (1.5-7.7) 10^3/ul Absolute Lymphs (auto) (1.0-4.8) 10^3/ul Absolute Monos (auto) (0-0.8) 10^3/ul Absolute Eos (auto) (0-0.6) 10^3/ul Absolute Basos (auto) (0-0.2) 10^3/ul Absolute Nucleated RBC 10^3/ul Nucleated RBC % INR (Anticoag Therapy) (0.82-1.09) APTT (26.0-38.0) seconds Sodium 136 (135-145) mmol/L Potassium 4.3 (3.5-5.0) mmol/L Chloride 102 (101-111) mmol/L Carbon Dioxide 26 (22-32) mmol/L Anion Gap 8 (2-11) mmol/L BUN 30 H (6-24) mg/dL Creatinine 1.22 H (0.51-0.95) mg/dL Est GFR ( Amer) 50.8 (>60) Est GFR (Non-Af Amer) 42.0 (>60) BUN/Creatinine Ratio 24.6 H (8-20) Glucose 106 H (70-100) mg/dL Lactic Acid 1.1 (0.5-2.0) mmol/L Calcium 10.4 H (8.6-10.3) mg/dL Total Bilirubin 0.60 (0.2-1.0) mg/dL AST 20 (13-39) U/L ALT 18 (7-52) U/L Alkaline Phosphatase 87 (34-104) U/L Troponin I 0.01 (<0.04) ng/mL C-Reactive Protein 86.38 H (<8.01) mg/L B-Natriuretic Peptide 350 H (<=100) pg/mL Total Protein 7.7 (6.4-8.9) g/dL Albumin 3.3 (3.2-5.2) g/dL Globulin 4.4 H (2-4) g/dL Albumin/Globulin Ratio 0.8 L (1-3) PTH Intact (12-88) pg/mL Calcium (PTH Intact) (8.6-10.3) mg/dL Urine Color Urine Appearance Urine pH (5-9) Ur Specific [place] (1.010-1.030) Urine Protein (Negative) Urine Ketones (Negative) Urine Blood (Negative) Urine Nitrate (Negative) Urine Bilirubin (Negative) Urine Urobilinogen (Negative) Ur Leukocyte Esterase (Negative) Urine WBC (Auto) (Absent) Urine RBC (Auto) (Absent) Urine Bacteria (Absent) Hyaline Casts (Absent) Urine Glucose (Negative) Urine Ascorbic Acid (Negative) 07/16/19 Range/Units 23:08 WBC (3.5-10.8) 10^3/uL RBC (3.70-4.87) 10^6 /uL Hgb (12.0-16.0) g/dL Hct (35-47) % MCV (80-97) fL MCH (27-31) pg MCHC (31-36) g/dL RDW (10-15) % Plt Count (150-450) 10^3/uL MPV (7.4-10.4) fL Neut % (Auto) % Lymph % (Auto) % [place] % (Auto) % Eos % (Auto) % Baso % (Auto) % Absolute Neuts (auto) (1.5-7.7) 10^3/ul Absolute Lymphs (auto) (1.0-4.8) 10^3/ul Absolute Monos (auto) (0-0.8) 10^3/ul Absolute Eos (auto) (0-0.6) 10^3/ul Absolute Basos (auto) (0-0.2) 10^3/ul Absolute Nucleated RBC 10^3/ul Nucleated RBC % INR (Anticoag Therapy) (0.82-1.09) APTT (26.0-38.0) seconds Sodium (135-145) mmol/L Potassium (3.5-5.0) mmol/L Chloride (101-111) mmol/L Carbon Dioxide (22-32) mmol/L Anion Gap (2-11) mmol/L BUN (6-24) mg/dL Creatinine (0.51-0.95) mg/dL Est GFR ( Amer) (>60) Est GFR (Non-Af Amer) (>60) BUN/Creatinine Ratio (8-20) Glucose (70-100) mg/dL Lactic Acid (0.5-2.0) mmol/L Calcium (8.6-10.3) mg/dL Total Bilirubin (0.2-1.0) mg/dL AST (13-39) U/L ALT (7-52) U/L Alkaline Phosphatase (34-104) U/L Troponin I (<0.04) ng/mL C-Reactive Protein (<8.01) mg/L B-Natriuretic Peptide (<=100) pg/mL Total Protein (6.4-8.9) g/dL Albumin (3.2-5.2) g/dL Globulin (2-4) g/dL Albumin/Globulin Ratio (1-3) PTH Intact 116.9 H (12-88) pg/mL Calcium (PTH Intact) 9.9 (8.6-10.3) mg/dL Urine Color Urine Appearance Urine pH (5-9) Ur Specific [place] (1.010-1.030) Urine Protein (Negative) Urine Ketones (Negative) Urine Blood (Negative) Urine Nitrate (Negative) Urine Bilirubin (Negative) Urine Urobilinogen (Negative) Ur Leukocyte Esterase (Negative) Urine WBC (Auto) (Absent) Urine RBC (Auto) (Absent) Urine Bacteria (Absent) Hyaline Casts (Absent) Urine Glucose (Negative) Urine Ascorbic Acid (Negative) Microbiology and Other Data: Microbiology 09/10/18 22:48 Urine Culture - Final Urine No Growth (<1,000 CFU/mL) 09/10/18 23:08 Aerobic Blood Culture - Preliminary Blood Venous No Growth Day 1 Anaerobic Blood Culture - Preliminary No Growth Day 1 09/10/18 23:10 Aerobic Blood Culture - Preliminary Blood Venous No Growth Day 1 Anaerobic Blood Culture - Preliminary No Growth Day 1 Diagnostic Imaging: CT Head Without Contrast IMPRESSION: 1. No acute intracranial pathology. ASPECTS score 10. 2. Other chronic findings, as above. Portable Chest X-ray Shows features of cardiomegaly but otherwise clear lungs. Official radiologist read pending. EKG Data: When compared to last months EKG patient still in A. Fib however the rate has increased to 92bpm today. Assess/Plan/Problems-Billing Assessment: 82 y/o female admitted for altered mental status contributed to hypercalcemia. s/p Reclast and now on sensipar. Endocrinology input appreciated. s/p US of thyorid and parathyroid scan - Patient Problems (1) Altered mental status Current Visit: Yes Status: Acute Code(s): R41.82 - ALTERED MENTAL STATUS, UNSPECIFIED SNOMED Code(s): 256560624 Comment: - Secondary to hypercalcemia, improving - Also it should be noted that she does have prominent ventricles on CT brain on admission. Thius suggest possible underlying and undiagnosed mild form of dementia. Given the acute illness, (in this setting hypercalcemia) it can make her mental status worse which can manifest with reversible delerium. (2) Generalized weakness Current Visit: Yes Status: Acute Code(s): R53.1 - WEAKNESS SNOMED Code(s) : 73814336 Comment: - Likely due to hypercalcemia - Working with PT and she demonstrated improvement but will benefit from continuing PT (3) Hypercalcemia syndrome Current Visit: Yes Status: Acute Code(s): E83.52 - HYPERCALCEMIA SNOMED Code(s): 26685323 Comment: - History of parathyroidectomy however PTH elevated again. - s/p telma hydration given recent admission about a month ago for diastolic CHF - I did d/c IVF and resumed her Lasix home regimen - Appreciate endocrinology input will follow up recommendation and treatment (4) Chronic atrial fibrillation Current Visit: No Status: Acute Code(s): I48.2 - CHRONIC ATRIAL FIBRILLATION SNOMED Code(s): 019687143 Comment: - Off anticoagulation after a fall. cont lopressor 25 mg bid for rate control. (5) Axillary mass Current Visit: Yes Status: Acute Comment: - Incidentally on US of thyroid. Us of axilla suggestive being benign. will follow up endo recommendations. Possible discharge in am if ok with endo (6) DVT prophylaxis Current Visit: No Status: Acute Code(s): Z29.9 - ENCOUNTER FOR PROPHYLACTIC MEASURES, UNSPECIFIED SNOMED Code(s): 991017454 Comment: Heparin Subcut
[2018-09-13] MEDS: Atorvastatin* 40 MG TAB PO SCH (19:29)
[2018-09-14 06:16] LABS: ABS Eosinophils 0.1 10^3/ul (0-0.6); ABS Monocytes 0.4 10^3/ul (0-0.8); ABS Neutrophils 4.6 10^3/ul (1.5-7.7); Eosinophil % 1.8 %; Hematocrit 38 % (35-47); Hemoglobin 12.2 g/dL (12.0-16.0); Lymphocyte % 15.7 %; Mean Corpuscular HGB Conc 32 g/dL (31-36); Mean Corpuscular Hemoglobin 26 pg (27-31); Mean Corpuscular Volume 80 fL (80-97); Mean Platelet Volume 6.5 fL (7.4-10.4); Platelet Count 334 10^3/uL (150-450); Red Blood Count 4.76 10^6 /uL (3.70-4.87); Red Cell Distribution Width 15 % (10-15); White Blood Count 6.2 10^3/uL (3.5-10.8)
[2018-09-14 06:19] LABS: ABS Eosinophils 0.1 10^3/ul (0-0.6); ABS Monocytes 0.4 10^3/ul (0-0.8); ABS Neutrophils 4.6 10^3/ul (1.5-7.7); Eosinophil % 1.6 %; Hematocrit 38 % (35-47); Hemoglobin 12.7 g/dL (12.0-16.0); Lymphocyte % 15.5 %; Mean Corpuscular HGB Conc 34 g/dL (31-36); Mean Corpuscular Hemoglobin 27 pg (27-31); Mean Corpuscular Volume 80 fL (80-97); Mean Platelet Volume 6.6 fL (7.4-10.4); Platelet Count 332 10^3/uL (150-450); Red Blood Count 4.75 10^6 /uL (3.70-4.87); Red Cell Distribution Width 15 % (10-15); White Blood Count 6.2 10^3/uL (3.5-10.8)
[2018-09-14 06:36] LABS: BUN/Creatinine Ratio 13.8 (8-20); Calcium 8.8 mg/dL (8.6-10.3); EGFR African American 57.9 (>60); EGFR Non-African American 47.8 (>60); Potassium 4.5 mmol/L (3.5-5.0)
[2018-09-14 06:37] LABS: Albumin 3.1 g/dL (3.2-5.2); Albumin/Globulin Ratio 0.8 (1-3); BUN/Creatinine Ratio 14.5 (8-20); Calcium 8.9 mg/dL (8.6-10.3); EGFR African American 57.3 (>60); EGFR Non-African American 47.3 (>60); Globulin 3.7 g/dL (2-4); Potassium 4.4 mmol/L (3.5-5.0); Total Bilirubin 0.5 mg/dL (0.2-1.0); Total Protein 6.8 g/dL (6.4-8.9)
--- NOTE | 2018-09-14 09:08 | PN ---
Progress Note - Progress Note Date of Service: 09/14/18 Note: Endocrine consult conclusions: Investigations: Laboratory Tests 09/11/18 09/11/18 09/14/18 09:49 09:49 06:05 Calcium 25-OH Vitamin D Total 34.5 Vit D 1,25-Dihydroxy 22 PTH Intact 123.9 H Calcium (PTH Intact) 8.7 09/14/18 06:05 Calcium 8.8 25-OH Vitamin D Total Vit D 1,25-Dihydroxy PTH Intact Calcium (PTH Intact) This patient presented with what appeared to be recurrent primary hyperparathyroidism and her clinical presentation replicated that in June 2018 prior to her parathyroid surgery. However, during the hospital stay her calcium has returned to the lower end of the reference range with diuretic therapy and cinacalcet. Interestingly, her intact PTH has not come down with the cinacalcet, making me wonder whether this drug is responsible for bring her calcium down. I note that her 25 OH Vit D was adequate, although her 1,25 dihydroxy vit D was towards the lower end of the range. I don't think this is secondary hyperparathyroidism. US thyroid and NM parathyroid scan were negative for a second parathyroid adenoma. Recommendations: maintain her on cinacalcet 30 mg qdaily on discharge. Set up a follow up appt with me as an outpatient. I think she should also receive a 25 OH vitamin D supplement of 1,000 units per day.
[2018-09-14] MEDS: hydrALAZINE TAB* 25 MG PO SCH ×2 (09:52→13:40)
[2018-09-14] MEDS: Potassium Chlor TAB* 20 MEQ TAB.ER PO SCH (09:52)
[2018-09-14] MEDS: Spironolactone TAB* 25 MG PO SCH (09:52)
[2018-09-14] MEDS: Metoprolol Tartrate TAB* 25 MG PO SCH (09:52)
[2018-09-14] MEDS: Cinacalcet TAB* 30 MG PO SCH (09:52)
[2018-09-14] MEDS: Furosemide TAB* 20 MG PO SCH (09:52)
[2018-09-14] MEDS: Heparin VIAL(*) 5000 UNITS/ML VIAL (FIVE THOUSAND) SUBCUT SCH (09:59)
[2018-09-14 12:57] VITALS: BP 129/72
--- NOTE | 2018-09-14 14:32 | DS ---
CC: Dr. Tobi Lennon; Dr. Michael Jose DISCHARGE SUMMARY: DATE OF ADMISSION: DATE OF DISCHARGE: PRIMARY CARE PROVIDER: Michael Jose MD. FINAL DISCHARGE DIAGNOSES: 1. Hypercalcemia secondary to hyperparathyroidism. 2. Primary hyperparathyroidism. 3. Altered mental status secondary to hypercalcemia. 4. Generalized weakness. 5. Chronic atrial fibrillation, on Eliquis. 6. Hyperlipidemia. 7. History of coronary artery disease. 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 Hence, her family were proactive and brought her to the ER. Given her presenting symptoms and prior history, and a calcium level of 10.7, she was admitted to the medical service and endocrinology consultation was obtained with Dr. Tobi Lennon. The patient was admitted. She was started on Sensipar, IV fluid, and Lasix, and her calcium corrected. Currently her calcium is down to 8.8 and patient appears to be improving. She is conversing. She is ambulating. Parathyroid nuclear scan was done on 09/12/18. There was no evidence of parathyroid adenoma on the scan. There was some nodule in the left axilla, which was followed by ultrasound of the axilla, soft tissue, and the report did not suggest any concern for any pathology and possibly it was a sequelae of extravasation from the left upper extremity ipsilateral pharmaceutical injection site. Therefore, with the symptom improvement in term of tolerating p.o., self feeding, ambulating, and she is oriented to place and name, I deemed the patient stable to be released with followup with her primary care and Dr. Tobi Lennon for further investigation on her parathyroid hormone level being elevated as well as this transient hypercalcemia Also, it should be noted that whether not she was taking it, it is listed on her medication that she was taking Tums 1000 b.i.d. FINAL DISCHARGE DIAGNOSES: 1. Hypercalcemia secondary to hyperparathyroidism. 2. Primary hyperparathyroidism. 3. Hypertension. 4. History of chronic atrial fibrillation. DISCHARGE MEDICATIONS: She will be sent on: 1. Sensipar 30 mg daily. 2. Aldactone 25 daily. 3. Lopressor 25 b.i.d. 4. Hydralazine 25 t.i.d. 5. Lipitor 40 at bedtime. 6. She was told to discontinue her Tums listed on her home medication. Stop her lasix to avoid volume depletion, Stop potassium (since off lasix) 7. Vitamin D 1000 IU daily 8. Eliquis 5 mg bid (to resume ONLY based on her prior recommendation prior to her admission). PHYSICAL EXAMINATION: Vital Signs: Temperature 98.4, pulse 86, respiratory rate 20, saturating at 99, blood pressure 126/55. General: Awake, alert, oriented to person and place, but not to time. Neck: Normocephalic and atraumatic. She is able to feed herself. Lungs: Clear to auscultation. Abdomen: Positive bowel sounds. Soft, nontender, nondistended. Extremities: No pedal edema. DIAGNOSTIC STUDIES/LAB DATA: Multiple CBC fairly unremarkable. Chemistry: Significant for PTH related peptide less than 0.4. PTH was 116 when she came in , up to 123 on 09/14/18. Calcium level was 10.4 when she came in, down to 8.8. Her ionized calcium was 1.09, low actually. Creatinine when she came in was 1.22, down to 1.09. Inpatient diagnostic studies: Brain CT 09/10/18: No acute intracranial pathology. She does have slight enlargement of the ventricle, some parenchymal volume loss. Chest x-ray: Cardiomegaly. Thyroid ultrasound revealed incidental thyroid nodule, 2.7 cm. No evidence of parathyroid adenoma. Parathyroid nuclear scan: No evidence of parathyroid adenoma. There was increased uptake in the nodule in the left axillary. That was followed with an ultrasound. Ultrasound of the left axillary reveals extravasation possibly of the radiopharmaceutical injection site. No evidence of pathology. DISCHARGE RECOMMENDATION: 1. Avoid dehydration. Aggressive and appropriate fluid intake, about 2 L a day. 2. Avoid any calcium supplements including her Tums, which was listed. I am going to stop her Lasix and this is to be reinstated as an outpatient, for now place it on hold. 3. Vitamin D 1000 unit PO daily. DISCHARGE DISPOSITION: Home. DISCHARGE CONDITION: Stable. [id number]/[facility] #: [id number] [facility]
== END 2018-09-14 17:09 | disposition home health service (06) | DRG 644 ==
LOC: EDBD → ED 18:58 → MEDTELE 09-11 03:32 → INTOOBSV 09-11 03:32
PROVIDERS: ADMIT Internal Medicine; ATTEND Internal Medicine
DX: E21.0 Primary hyperparathyroidism (principal); N17.9 Acute kidney failure, unspecified; I13.0 Hypertensive heart and chronic kidney disease with heart failure and stage 1 through stage 4 chronic kidney disease, or unspecified chronic kidney disease; I48.2 Chronic atrial fibrillation; R53.1 Weakness; E78.5 Hyperlipidemia, unspecified; I25.10 Atherosclerotic heart disease of native coronary artery without angina pectoris; J45.909 Unspecified asthma, uncomplicated; I50.9 Heart failure, unspecified; N18.9 Chronic kidney disease, unspecified; D69.6 Thrombocytopenia, unspecified; Z86.73 Personal history of transient ischemic attack (TIA), and cerebral infarction without residual deficits; Z82.49 Family history of ischemic heart disease and other diseases of the circulatory system; Z88.8 Allergy status to other drugs, medicaments and biological substances; Z79.899 Other long term (current) drug therapy
CPT/HCPCS: 36415; 70450; 71045; 76536; 78072; 80048; 80053; 81003; 81015; 82306; 82330; 82397; 82652; 83605; 83735; 83880; 83970; 84100; 84484; 85025; 85610; 85730; 86140; 87040; 87086; 93005; 99284; A9270-GY; A9500; G0378; G8978-GP-CJ; G8979-GP-CI; J1644; J1956; J3489

== ENCOUNTER 2018-11-30 17:54 | Inpatient (IN) | payer MEDICARE ==
[2018-11-30 18:29] LABS: Urine Appearance Clear; Urine Bacteria Absent (Absent); Urine Bilirubin Negative (Negative); Urine Blood 1+ (Negative); Urine Color Yellow; Urine Glucose Negative (Negative); Urine Ketones Negative (Negative); Urine Nitrite Negative (Negative); Urine Protein 2+(100 mg/dL) (Negative); Urine Red Blood Cell 1+(3-5/hpf) (Absent); Urine Specific Gravity 1.011 (1.010-1.030); Urine Urobilinogen Negative (Negative); Urine White Blood Cell Trace(0-5/hpf) (Absent)
--- NOTE | 2018-11-30 18:40 | ED ---
Complex/Multi-Sys Presentation - HPI Summary HPI Summary: Per family patient complains of mild headache, lethargy and mild altered mental status starting today. Family also states patient had dried blood on her cheek when she woke up this morning. Family states patient has new wounds on tip of her tongue. Patient lives alone, but family near near by. Patient herself denies any fever, cough, sore throat, CP, SOB, N/V/V abdominal pain, change in urine, change in BM. Medical history is A. fib, hyperparathyroidism with surgery in June 2018, chronic hypocalcemia for which patient takes Gregory-Citrate. 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 Onset/Duration: Sudden Onset, Lasting Hours Timing: Constant Severity Currently: Moderate Severity Initially: Moderate Associated Signs And Symptoms: Positive: Decreased Responsiveness, Confusion, Headache - Allergies/Home Medications Allergies/Adverse Reactions: Allergies Allergy/AdvReac Type Severity Reaction Status Date / Time Tetracyclines Allergy Unknown Verified 11/14/18 10:38 Reaction Details PMH/Surg Hx/FS Hx/Imm Hx Endocrine/Hematology History: 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 Denies: Hx Diabetes Cardiovascular History: Reports: Hx Hypertension Respiratory History: Reports: Hx Asthma Denies: Hx Chronic Obstructive Pulmonary Disease (COPD) History: Denies: Hx Dialysis Musculoskeletal History: Denies: Hx Arthritis, Hx Osteoporosis Sensory History: Reports: Hx Contacts or Glasses Denies: Hx Hearing Aid Opthamlomology History: Reports: Hx Contacts or Glasses Neurological History: Denies: Hx Seizures, Hx Transient Ischemic Attacks (TIA) - Surgical History Surgery Procedure, Year, and Place: hernia repair Infectious Disease History: No Infectious Disease History: Denies: Hx Hepatitis, Traveled Outside the [place] in Last 30 Days - Family History Known Family History: Positive: Non-Contributory - Social History Alcohol Use: Rare Hx Substance Use: No Substance Use Type: Reports: None Hx Tobacco Use: No Smoking Status (MU): Never Smoked Tobacco Review of Systems Constitutional: Negative Eyes: Negative Positive: Other Cardiovascular: Negative Respiratory: Negative Gastrointestinal: Negative Genitourinary: Negative Musculoskeletal: Negative Skin: Negative Positive: Headache Positive: Other All Other Systems Reviewed And Are Negative: Yes Physical Exam - Summary Physical Exam Summary: Alert and responsive and coherent. No facial droop or speech change noted. Alert to time and place. Patient unable to complete neuro exam, specifically finger to nose test and heel to ankle test. No pain with palpation of abdomen. No significant edema to bilateral lower extremities. Lung sounds clear to auscultation bilaterally. Irregular heart rate. Ulcers to tip of tongue bilaterally. No other intraoral lesions or trauma noted. No active bleeding. Triage Information Reviewed: Yes Vital Signs On Initial Exam: Initial Vitals Temp Pulse Resp BP Pulse Ox 97.1 F 70 16 167/119 90 11/30/18 17:57 11/30/18 17:57 11/30/18 17:57 11/30/18 17:57 11/30/18 17:57 Vital Signs Reviewed: Yes Appearance: Positive: Well-Appearing Skin: Positive: Warm Head/Face: Positive: Normal Head/Face Inspection Eyes: Positive: Normal ENT: Positive: Other Neck: Positive: Supple Respiratory/Lung Sounds: Positive: Clear to Auscultation Cardiovascular: Positive: Normal Abdomen Description: Positive: Nontender Musculoskeletal: Positive: Normal Neurological: Positive: Normal Psychiatric: Positive: Normal AVPU Assessment: Alert - [place] Coma Scale Best Eye Response: 4 - Spontaneous Best Motor Response: 6 - Obeys Commands Best Verbal Response: 5 - Oriented Coma Scale Total: 15 Procedures - Sedation Patient Received Moderate/Deep Sedation with Procedure: No Diagnostics - Vital Signs Vital Signs Temp Pulse Resp BP Pulse Ox 11/30/18 18:31 17 11/30/18 17:57 97.1 F 70 29 167/119 90 - Laboratory Lab Results: Lab Results 11/30/18 Range/Units 18:10 Urine Color Yellow Urine Appearance Clear Urine pH 7.0 (5-9) Ur Specific [place] 1.011 (1.010-1.030) Urine Protein 2+(100 mg/dl) A (Negative) Urine Ketones Negative (Negative) Urine Blood 1+ A (Negative) Urine Nitrate Negative (Negative) Urine Bilirubin Negative (Negative) Urine Urobilinogen Negative (Negative) Ur Leukocyte Esterase Negative (Negative) Urine WBC (Auto) Trace(0-5/hpf) (Absent) Urine RBC (Auto) 1+(3-5/hpf) A (Absent) Urine Bacteria Absent (Absent) Urine Glucose Negative (Negative) Result Diagrams: 12/01/18 04:15 12/01/18 04:15 Lab Statement: Any lab studies that have been ordered have been reviewed, and results considered in the medical decision making process. Complex Multi-Symp Course/Dx Course Of Treatment: Per family patient complains of mild headache, lethargy and mild altered mental status starting today. Family also states patient had dried blood on her cheek when she woke up this morning. Family states patient has new wounds on tip of her tongue. Patient lives alone, but family near near by. Patient herself denies any fever, cough, sore throat, CP, SOB, N/V/V abdominal pain, change in urine, change in BM. Medical history is A. fib, hyperparathyroidism with surgery in June 2018, chronic hypocalcemia for which patient takes Gregory-Citrate. Vital signs within normal limits. PTH 126. Calcium 8.2. Magnesium 1.7. Total bili 1.4. Ammonia 100. Seizure observed at 2125 in the ED room, lasting approximately 20 seconds. Patient was postictal afterwards. No prior history of seizure disorder. CT brain no acute process. Patient admitted to the hospitalist for further evaluation. - Diagnoses Provider Diagnoses: Seizure, Hypocalcemia, Increased ammonia level, Hypomagnesemia, Hyperparathyroidism, Elevated bilirubin Discharge ED - Sign-Out/Discharge Documenting (check all that apply): Patient Departure - Discharge Plan Condition: Fair Disposition: ADMITTED TO [facility] - Billing Disposition and Condition Condition: FAIR Disposition: Admitted to [facility] - Attestation Statements Provider Attestation: I was available for consult. This patient was seen by the MERYL. The patient was not presented to, seen by, or examined by me. Lc Davis MD
[2018-11-30] MEDS ORDERED: NS 0.9% 1000 ML** 1,000 ML IV ONE (19:49)
[2018-11-30 19:52] LABS: ABS Basophils 0.1 10^3/ul (0-0.2); ABS Lymphocytes 0.6 10^3/ul (1.0-4.8); ABS Monocytes 0.5 10^3/ul (0-0.8); ABS Neutrophils 7.4 10^3/ul (1.5-7.7); Eosinophil % 0.1 %; Hematocrit 43 % (35-47); Hemoglobin 13.8 g/dL (12.0-16.0); Lymphocyte % 6.8 %; Mean Corpuscular HGB Conc 32 g/dL (31-36); Mean Corpuscular Hemoglobin 26 pg (27-31); Mean Corpuscular Volume 80 fL (80-97); Mean Platelet Volume 7.7 fL (7.4-10.4); Platelet Count 185 10^3/uL (150-450); Red Blood Count 5.39 10^6 /uL (3.70-4.87); Red Cell Distribution Width 18 % (10-15); White Blood Count 8.5 10^3/uL (3.5-10.8)
[2018-11-30 20:46] LABS: Albumin 3.8 g/dL (3.2-5.2); Albumin/Globulin Ratio 1.5 (1-3); BUN/Creatinine Ratio 15.5 (8-20); C Reactive Protein 1.1 mg/L (<8.01); Calcium 8.2 mg/dL (8.6-10.3); EGFR African American 66.2 (>60); EGFR Non-African American 54.7 (>60); Globulin 2.6 g/dL (2-4); Magnesium 1.7 mg/dL (1.9-2.7); Potassium 3.9 mmol/L (3.5-5.0); Total Bilirubin 1.4 mg/dL (0.2-1.0); Total Protein 6.4 g/dL (6.4-8.9)
[2018-11-30] MEDS ORDERED: Magnesium Sulfate 2 GM IV* 2 GM/50 ML BAG IVPB ONE (21:04)
[2018-11-30] MEDS ORDERED: levETIRAcetam 1000MG IVPREMIX* 1,000 MG/100 ML BAG IVPB ONE (21:23)
[2018-11-30 21:27] LABS: TSH (Thyroid Stimulating Horm) 1.65 mcIU/mL (0.34-5.60)
[2018-11-30 21:28] LABS: Phosphorus 3.1 mg/dL (2.5-5.0)
[2018-11-30] MEDS ORDERED: Lactulose 480 ML BTL*STOCK USE 480 ML ML PR ONE (22:19)
[2018-11-30] MEDS ORDERED: Magnesium Sulfate 1 GM IV* 1 GM/100 ML BAG IV ONE (23:46)
[2018-12-01] MEDS ORDERED: Metoprolol Tartrate IV* 1 MG/ML 5 ML VIAL IV PRN (00:35)
[2018-12-01] MEDS: NS 0.9% 1000 ML** 1,000 ML IV SCH (01:30)
[2018-12-01 04:28] LABS: ABS Lymphocytes 0.9 10^3/ul (1.0-4.8); ABS Monocytes 0.6 10^3/ul (0-0.8); ABS Neutrophils 7.7 10^3/ul (1.5-7.7); Eosinophil % 0.1 %; Hematocrit 41 % (35-47); Lymphocyte % 9.4 %; Mean Corpuscular HGB Conc 32 g/dL (31-36); Mean Corpuscular Hemoglobin 26 pg (27-31); Mean Corpuscular Volume 80 fL (80-97); Mean Platelet Volume 7.4 fL (7.4-10.4); Platelet Count 179 10^3/uL (150-450); Red Blood Count 5.08 10^6 /uL (3.70-4.87); Red Cell Distribution Width 18 % (10-15); White Blood Count 9.2 10^3/uL (3.5-10.8)
[2018-12-01 04:41] LABS: Albumin 3.7 g/dL (3.2-5.2); Albumin/Globulin Ratio 1.5 (1-3); BUN/Creatinine Ratio 13.8 (8-20); Calcium 8.2 mg/dL (8.6-10.3); EGFR African American 57.9 (>60); EGFR Non-African American 47.8 (>60); Globulin 2.4 g/dL (2-4); Potassium 4.2 mmol/L (3.5-5.0); Total Bilirubin 1.5 mg/dL (0.2-1.0); Total Protein 6.1 g/dL (6.4-8.9)
--- NOTE | 2018-12-01 05:17 | HP ---
CC: Dr. Michael Jose; Dr. Tobi Lennon * ADMISSION HISTORY AND PHYSICAL: DATE OF ADMISSION: 11/30/18 PRIMARY CARE PHYSICIAN: Dr. Michael Jose. SUPERCHARGER MECHANIC: Dr. Tobi Lennon. CHIEF COMPLAINT: Altered mental status. HISTORY OF PRESENT ILLNESS: This is an 82-year-old female with past medical history of hypercalcemia due to hyperparathyroidism, status post surgical resection in June 2018; recent admission 3 months ago for generalized weakness with elevated calcium, which improved and the patient was subsequently discharged home. The patient lives alone and is otherwise independent and daughter, who lives next door, checks up on her. This morning, when the daughter saw her in the house, she noticed that she was a little confused in the morning with some dried blood on her face and she had bit her tongue. She has had decreased appetite and also had an episode of urinary incontinence, and she was not getting out of the bed much and daughter thought that she was just weak and let her rest to see if she improves. Daughter came back about roughly 2 to 3 hours, and this time, there was even more blood on the bed and the daughter was a bit more concerned because she was also noted to be very unsteady on her feet, when at baseline she is able to ambulate independently, so called the ambulance. Upon arrival to the ER, she was still a little confused; however, she had a tonic-clonic seizure according to the nurse who witnessed it, which lasted about 20 seconds and this improved on its own. The patient, however, did get a dose of Keppra and seizure precautions were activated and I was called to admit the patient for seizure and postictal confusion. PAST MEDICAL HISTORY: As mentioned, she has a history of hypercalcemia, status post parathyroidectomy in June 2015; AFib, currently on Eliquis; history of asthma; hypertension; hyperlipidemia; chronic kidney disease somewhere between stage 2 and 3 given her GFR is right around 60; coronary artery disease, but no stenting or no heart attack; history of TIA, which is based on her CT findings of a stroke; gastroesophageal reflux disease. PAST SURGICAL HISTORY: As mentioned status post parathyroidectomy in June of 2015 at [facility] in [place], right wrist carpal tunnel release surgery in 1979, status post left groin hernia repair in , bilateral cataract surgeries. HOME MEDICATIONS: The patient is currently on: 1. Spironolactone 25 mg oral daily. 2. Metoprolol 25 mg oral twice a day. 3. Eliquis 5 mg p.o. b.i.d. 4. Senokot 30 mg oral daily. 5. Atorvastatin 40 mg every evening. ALLERGIES: The patient is documented to be allergic to TETRACYCLINE. FAMILY HISTORY: There is some family history of heart problems in her mother, who at age 68, but otherwise noncontributory at her age of 84. SOCIAL HISTORY: She lives alone and is independent of her activities of daily living. Her daughter and son-in-law live right next door. Her son-in-law is the primary healthcare proxy. There is no other history of smoking, alcohol, or drug use. The patient is a full code. REVIEW OF SYSTEMS: A 14-point review of systems did not reveal any new information other than what is mentioned in the HPI. PHYSICAL EXAMINATION GENERAL: The patient is arousable but did not keep mentation for very long, wanted to sleep and cover herself with blanket. VITAL SIGNS: In the ER, BP was noted to be 143/78, heart rate 74, respiration rate 20, saturating 98% on room air, temperature was documented at 97.1. HEENT: Atraumatic, normocephalic. Bilateral pupils are reactive. Oral mucosa showed dried blood around the tongue and there is a large bite osbaldo on the left side of the tongue. NECK: Supple. No jugular venous distention. LUNGS: Clear to auscultation bilaterally. No wheezing, rhonchi, or rales. HEART: S1, S2. Irregularly irregular. ABDOMEN: Soft, nontender, and nondistended. EXTREMITIES: No cyanosis, clubbing, or edema. DIAGNOSTIC STUDIES/LAB DATA: CBC was unremarkable. Comprehensive metabolic panel showed elevated ammonia at 100, PTH was noted to be elevated at 126.2, calcium was noted to be normal at 8.2, magnesium was noted to be low at 1.7, creatinine was noted to be stable at 0.97. Urinalysis showed 1+ blood, but negative for any nitrite or leuk esterase. 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 EKG showed AFib at 81 beats per minute without any ST elevation. IMPRESSION: This is an 82-year-old female with past medical history of atrial fibrillation; hypoparathyroidism, status post surgical correction; history of asthma; hypertension; hyperlipidemia; chronic kidney disease, stage 2; previous history of stroke based on CT; comes in with altered mental status likely secondary to postictal state from recurrent seizures that she may be having all day. ASSESSMENT: 1. Altered mental status due to postictal state and seizure. We will place the patient on seizure precautions, state the patient on q.4 hour neuro checks and the patient was already loaded on Keppra. We will get an EEG and a neurology consult in the morning and Ativan p.r.n. for any recurrent seizures. 2. History of atrial fibrillation. For now, the patient is still postictal, so we will hold any p.o. medications including the Eliquis. We can restart once she is more awake in the morning. 3. History of hypertension. We will hold blood pressure medications and start the patient on IV metoprolol if her blood pressure is greater than 160. 4. History of hyperparathyroidism, still noted to have elevated PTH level but the calcium was normal. We can consider consultation with Endocrinology, Dr. Tobi Lennon, if her calcium worsens. 5. History of hyperlipidemia. We will restart her statin once she is more alert and able to swallow. 6. History of elevated ammonia. This could be secondary to seizure. The patient already was given a dose of lactulose in the ER. We will repeat level in the morning. 7. DVT prophylaxis with sequential compression devices for now, and once she is more awake, she will also be on Eliquis. 8. Code status. The daughter wants her to be full code with son-in-law and daughter being the surrogate decision makers. [id number]/[facility] #: [id number] [facility]ERN[facility]
[2018-12-01] MEDS ORDERED: Lorazepam PYXIS KEY PRN (09:18)
[2018-12-01] MEDS ORDERED: LORazepam INJ* 2 MG/ML 1 ML VIAL ONE (09:18)
[2018-12-01] MEDS ORDERED: Lorazepam PYXIS KEY ONE (09:18)
[2018-12-01] MEDS: LORazepam INJ* 2 MG/ML 1 ML VIAL IV PUSH PRN (09:23)
[2018-12-01] MEDS: levETIRAcetam 500 MG IVPREMIX* 500 MG/100 ML BAG IV SCH ×2 (10:02→21:38)
--- NOTE | 2018-12-01 10:11 | PN ---
Subjective Date of Service: 12/01/18 Interval History: Pt at 645 able to say name, at 715 able to say name, . Neither time would she follow commands. MCMAHON. Afebrile, HDS. Just grunts to verbal stimuli and sternal rub for me. Dr. Hooks of Neurology consulted. Told RN he had cold hands right before 1mg ativan given at 9:23. Daughter Nevin called - says Nirali has 2 glasss of wine a year, no known issues with liver or ammonia levels in past. Son In Law Alex Navarro is a professor of Veterinary Neurology at [employer] who was in ED when he say the tonic-clonic seizure. eyes rolled back in head, jaw clenched, foaming at mouth. lasted 20-30 secs. Had been confused both before and after. Ammonia 100 in ED and improved to 34 after per rectum lactulose. MRI Brain at [facility] in Spring 2018, they did not hear any results from it. Did not know of any e/o stroke on prior imaging (H TIA). Objective Active Medications: Sodium Chloride (Ns 0.9% 1000 Ml) 1,000 mls @ 75 mls/hr IV PER RATE PRATIMA Last Admin: 12/01/18 01:30 Dose: 75 mls/hr Levetiracetam (Keppra Iv Premix*) 500 mg in 100 mls @ 400 mls/hr IV Q12H [facility] Last Admin: 12/01/18 10:02 Dose: 400 mls/hr Lorazepam (Ativan Inj*) 1 mg IV PUSH Q5M PRN PRN Reason: seizure Last Admin: 12/01/18 09:23 Dose: 1 mg Metoprolol Tartrate (Lopressor Iv*) 5 mg IV Q6H PRN PRN Reason: Systolic Bp Greater Than:160 Miscellaneous (Ativan Pyxis House) 1 ea N/A .ATIVAN IV HOUSE PRN PRN Reason: PYXIS HOUSE Vital Signs - 8 hr 12/01/18 12/01/18 12/01/18 02:53 03:00 04:00 Temperature 98.2 F Pulse Rate 79 78 Respiratory 28 19 14 Rate Blood Pressure 140/87 135/77 (mmHg) O2 Sat by Pulse 99 99 Oximetry 12/01/18 12/01/18 12/01/18 04:43 05:00 05:01 Temperature Pulse Rate 75 84 Respiratory 14 14 14 Rate Blood Pressure 126/78 (mmHg) O2 Sat by Pulse 98 97 Oximetry 12/01/18 12/01/18 12/01/18 06:00 06:01 06:26 Temperature Pulse Rate 81 84 Respiratory 17 14 13 Rate Blood Pressure 130/83 (mmHg) O2 Sat by Pulse 97 97 Oximetry 12/01/18 12/01/18 12/01/18 07:00 07:29 09:23 Temperature 98.2 F Pulse Rate 93 Respiratory 25 14 Rate Blood Pressure 147/86 (mmHg) O2 Sat by Pulse 95 Oximetry Oxygen Devices in Use Now: Nasal Cannula Appearance: Lying in bed, no apparent distress. Eyes: No Scleral Icterus, PERRLA Respiratory: Symmetrical Chest Expansion and Respiratory Effort, Clear to Auscultation - anteriorly Cardiovascular: No Edema - irregularly irregular, - Abdominal: NL Sounds; No Tenderness; No Distention Extremities: No Edema Skin: No Rash or Ulcers Neurological: - - grunting to verbal and sternal rub. MCMAHON. mute babinski on left , downgoing on right. no increased tone or tremors. localizing to pain. Lines/Tubes/Other Access: Clean, Dry and Intact Peripheral IV Result Diagrams: 12/01/18 04:15 12/01/18 04:15 Additional Lab and Data: Laboratory Results - last 24 hr 11/30/18 11/30/18 11/30/18 18:10 19:12 20:20 WBC 8.5 RBC 5.39 H Hgb 13.8 Hct 43 MCV 80 MCH 26 L MCHC 32 RDW 18 H Plt Count 185 MPV 7.7 Neut % (Auto) 86.7 Lymph % (Auto) 6.8 Burke % (Auto) 5.8 Eos % (Auto) 0.1 Baso % (Auto) 0.6 Absolute Neuts (auto) 7.4 Absolute Lymphs (auto) 0.6 L Absolute Monos (auto) 0.5 Absolute Eos (auto) 0.0 Absolute Basos (auto) 0.1 Absolute Nucleated RBC 0.0 Nucleated RBC % 0.0 Sodium 140 Potassium 3.9 Chloride 105 Carbon Dioxide 26 Anion Gap 9 BUN 15 Creatinine 0.97 H Est GFR ( Amer) 66.2 Est GFR (Non-Af Amer) 54.7 BUN/Creatinine Ratio 15.5 Glucose 94 Calcium 8.2 L Phosphorus 3.1 Magnesium 1.7 L Total Bilirubin 1.40 H AST 23 ALT 20 Alkaline Phosphatase 68 Ammonia C-Reactive Protein 1.10 Total Protein 6.4 Albumin 3.8 Globulin 2.6 Albumin/Globulin Ratio 1.5 TSH 1.65 PTH Intact Calcium (PTH Intact) Urine Color Yellow Urine Appearance Clear Urine pH 7.0 Ur Specific [place] 1.011 Urine Protein 2+(100 mg/dl) A Urine Ketones Negative Urine Blood 1+ A Urine Nitrate Negative Urine Bilirubin Negative Urine Urobilinogen Negative Ur Leukocyte Esterase Negative Urine WBC (Auto) Trace(0-5/hpf) Urine RBC (Auto) 1+(3-5/hpf) A Urine Bacteria Absent Urine Glucose Negative 11/30/18 11/30/18 12/01/18 21:26 21:26 04:15 WBC RBC Hgb Hct MCV MCH MCHC RDW Plt Count MPV Neut % (Auto) Lymph % (Auto) Burke % (Auto) Eos % (Auto) Baso % (Auto) Absolute Neuts (auto) Absolute Lymphs (auto) Absolute Monos (auto) Absolute Eos (auto) Absolute Basos (auto) Absolute Nucleated RBC Nucleated RBC % Sodium Potassium Chloride Carbon Dioxide Anion Gap BUN Creatinine Est GFR ( Amer) Est GFR (Non-Af Amer) BUN/Creatinine Ratio Glucose Calcium Phosphorus Magnesium Total Bilirubin AST ALT Alkaline Phosphatase Ammonia 100 H 34 C-Reactive Protein Total Protein Albumin Globulin Albumin/Globulin Ratio TSH PTH Intact 126.2 H Calcium (PTH Intact) 8.3 L Urine Color Urine Appearance Urine pH Ur Specific [place] Urine Protein Urine Ketones Urine Blood Urine Nitrate Urine Bilirubin Urine Urobilinogen Ur Leukocyte Esterase Urine WBC (Auto) Urine RBC (Auto) Urine Bacteria Urine Glucose 12/01/18 12/01/18 04:15 04:15 WBC 9.2 RBC 5.08 H Hgb 13.0 Hct 41 MCV 80 MCH 26 L MCHC 32 RDW 18 H Plt Count 179 MPV 7.4 Neut % (Auto) 83.5 Lymph % (Auto) 9.4 Burke % (Auto) 6.5 Eos % (Auto) 0.1 Baso % (Auto) 0.5 Absolute Neuts (auto) 7.7 Absolute Lymphs (auto) 0.9 L Absolute Monos (auto) 0.6 Absolute Eos (auto) 0.0 Absolute Basos (auto) 0.0 Absolute Nucleated RBC 0.0 Nucleated RBC % 0.0 Sodium 139 Potassium 4.2 Chloride 106 Carbon Dioxide 28 Anion Gap 5 BUN 15 Creatinine 1.09 H Est GFR ( Amer) 57.9 Est GFR (Non-Af Amer) 47.8 BUN/Creatinine Ratio 13.8 Glucose 96 Calcium 8.2 L Phosphorus Magnesium Total Bilirubin 1.50 H AST 22 ALT 19 Alkaline Phosphatase 65 Ammonia C-Reactive Protein Total Protein 6.1 L Albumin 3.7 Globulin 2.4 Albumin/Globulin Ratio 1.5 TSH PTH Intact Calcium (PTH Intact) Urine Color Urine Appearance Urine pH Ur Specific [place] Urine Protein Urine Ketones Urine Blood Urine Nitrate Urine Bilirubin Urine Urobilinogen Ur Leukocyte Esterase Urine WBC (Auto) Urine RBC (Auto) Urine Bacteria Urine Glucose Microbiology and Other Data: Microbiology 12/01/18 01:00 Nasal Nasal Screen MRSA (PCR) - Final Mrsa Not Detected Assess/Plan/Problems-Billing Assessment: 82 year old female PMH pAfib(on Eliquis), "TIA"(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 p/w confusion, tongue bite, urinary incontinence then observed tonic-clonic seizure in ED. s/p keppra load. AMS continues. Hyperammonia 100. INR elevated in August(supposedly off coumadin at time). EEG pending. - Patient Problems (1) Tonic clonic seizures Current Visit: Yes Status: Acute Code(s): G40.409 - OTH GENERALIZED EPILEPSY , NOT INTRACTABLE, W/O STAT EPI SNOMED Code(s): 786506549 Comment: witnessed by son-in-law who is a [place] Neurologist [facility] [employer]. s/p keppra 1000mg in ED. trial 1mg ativan this AM with little change in responsiveness. Currently GCS 8(E1V2M5) alternating with GCS12(E3V4M5) Appreciate Neurology recs, discussed with Dr. Hooks. EEG team to be called in. Continue Keppra at 500mg IV q12. Ativan 1mg prn q5min for seizure activity Neuro checks q1h. No known history of seizures. Does have remote right MCA territory CVA on noncontast CTH. Request record of [facility] MRI circa spring 2018. Likely repeat MRI brain. Pt on eliquis (though hx of some medication noncompliance), no bleed on CTH. (2) Hyperammonemia Current Visit: Yes Status: Acute Code(s): E72.20 - DISORDER OF UREA CYCLE METABOLISM, UNSPECIFIED SNOMED Code(s): 9594219 Comment: s/p lactulose per rectum. Improved from 100 to 34. Will add on INR (had been 1.57 in August compared to 1.03 in July and was reportedly not on coumadin at the time given hx of fall) and get Liver US. Tbili 1.5. No other transaminitis. Consider NGT for lactulose but will get EEG first. (3) Coagulopathy Current Visit: Yes Status: Acute Comment: Add on INR to recheck compared to August. (4) Altered mental status Current Visit: No Status: Acute Code(s): R41.82 - ALTERED MENTAL STATUS, UNSPECIFIED SNOMED Code(s): 615867899 Comment: DDx seizure with possible status, hepatic encephalopathy, occult infection including LICENSED MIDWIFE source. Will hold eliquis (not safe for po at moment anyway) and may need LP if other etiology not clear. No fever, no leukocytosis . CRP negatigve. UA no e/o infection. Will add on BCx. Not currently on antibiotics. (5) Chronic atrial fibrillation Current Visit: No Status: Acute Code(s): I48.2 - CHRONIC ATRIAL FIBRILLATION * DO NOT USE * SNOMED Code(s): 014692295 Comment: tele replete Mg >2, K>4 prn lopressor prn HR sustained >120 for 5 minutes. 80s currently. not safe for eliquis po given continued AMS. f/u INR and neuro recs. Status and Disposition: medicine inpatient in ICU.
[2018-12-01 10:54] LABS: INR 1.18 (0.82-1.09)
[2018-12-01 11:31] LABS: Ferritin 44.3 ng/mL (11-307)
--- NOTE | 2018-12-01 14:47 | CONS ---
CONSULTATION REPORT: DATE OF CONSULT: 12/01/18 PATIENT OF: Dr. Melchor Roche, Dr. Michael Jose, and Dr. Tobi Lennon. HISTORY OF PRESENT ILLNESS: This is an 82-year-old woman I am asked to see for seizures and change in mental status. She has had a past history of hyperparathyroidism, status post postsurgical resection, with an admission a few months ago for generalized weakness and elevated calcium. However, she has since then continued to do well, living alone, independent with an independent walker. Yesterday, morning the daughter saw her in her house, and was little bit confused, with some dry blood on her face and she had bit her tongue. She had an episode of urinary incontinence and was not getting out of bed much. So , the daughter had let her rest, but then after 2 or 3 hours came back to see her and she was more unsteady on her feet and called an ambulance and she was brought to the emergency room. She was somewhat confused there, but described as alert, responsive, and coherent. She was alert to time and place. The Jorgito coma scale was 15. However, she had a 20-second tonic-clonic seizure witnessed in the ER and she received Keppra 1000 mg and was admitted to the ICU where she has been obtunded. She has a past history of atrial fibrillation and stroke on her CT scan with the history of TIA. She has hypercalcemia status post parathyroidectomy, asthma , hypertension, hyperlipidemia, chronic kidney disease, coronary artery disease , and GERD, status post parathyroidectomy, right wrist carpal tunnel surgery, left groin herniorrhaphy, bilateral cataract surgeries. She is on spironolactone 25 mg daily, metoprolol 25 mg twice a day, Eliquis 5 mg b.i.d., Senokot 30 mg daily, atorvastatin 40 mg every evening. She is allergic to tetracycline. There is a family history of heart disease in her mother. She lives alone and independent. Her daughter and son-in-law live next to her. She does not smoke, drink or use drugs. REVIEW OF SYSTEMS: Through the chart is negative in all 14 spheres other than the HPI. PHYSICAL EXAMINATION: On exam, she has been afebrile with most recent temperature 98.2, pulse 82, respirations 16, blood pressure 120/81. She is obtunded, does not open her eyes. With slight noxious stim, she will withdraw both extremities semi-purposefully, move, shrug her shoulders, but does not follow any specific commands neither midline nor in the periphery. She said for me mmmm before she got Ativan and Keppra. This morning the nurse says that she was saying short phrases to him on occasion and moving both sides with power spontaneously. Pupils were 2 mm and reactive. Red reflex was present bilaterally. She has on the right side of her face decreased facial droop below the corner of her right mouth, which may be chronic, but hard to say. There was no clear facial asymmetry in her check or far head area, but she was not cooperative with exam. Corneals were intact. Motor Exam: She moved both sides with at least 4-/5 strength. Reflexes were trace to 1; toes were mute. Chest: Clear. Cardiovascular: Irregular rate and rhythm. Abdomen: Soft with positive bowel sounds. DIAGNOSTIC STUDIES/LAB DATA: White count was 9.2, hematocrit 41, platelets 179. Differential was normal. INR 1.18. She has normal BMP other than a creatinine of 1.09 today. Calcium 8.2, total bili 1.5; ammonia was initially 100, now it is 34. BNP was greater than 1300, total protein 6.1, calcium 8.3, magnesium 1.7, total bili 1.5. Her CT scan was reviewed and showed diffuse atrophy, diffuse white matter disease, and an old right MCA stroke that was present on the prior CT scan. I looked at both. Her EEG showed diffuse delta, theta and beta range frequencies. There was 1 possible left temporal sharp wave, but there were no ongoing epileptiform discharges. Her UA was negative other than total urine protein of 2+. IMPRESSION AND PLAN: Nirali had a seizure in the emergency room and most likely based on what the daughter observed she most likely had seizures at home and was witnessed to be postictal also with incontinence and a bit tongue. It is unclear how many seizures she had at home. It is most likely that she has had several and is just postictal now with medications contributing to some of her sedation. We gave her Ativan prior to the EEG to make sure that there were not subclinical seizures while we were waiting for the EEG, but she has become slightly less responsive since then, although now is beginning to improve again. So, it is possible that she is having seizures perhaps secondary to her old strokes and that she will gradually come out of it over the course of the day. However, other options would include that she had stroke in her brainstem or possibly on her left brain and she has had a prior right MCA stroke and this could cause her to have both seizures and confusion. We are obtaining a CT scan. She is not a tPA candidate since she was on Eliquis and is now well outside any window. Likewise, she would not be a clot retrieval candidate since she is well past 24-hour window. Other options would include that some of her lethargy and confusion could be secondary to her elevated ammonia and this is clearly true. It would not explain her seizures and her ammonia is now within normal range and she did not have triphasics on EEG. So, I think that the elevated ammonia may be a contributing factor of liver dysfunction, but probably not the primary thing. She has another possibility which is unlikely, but still possible, that this could represent meningoencephalitics. This has been going on for more than 24 hours and she has no elevated white count, as well as no fever. Her neck did not appear rigid, but she is obtunded. We will check a CT scan to see if there is evidence of a stroke and then depending on how she is doing, we may cover with antibiotic. She has been on anticoagulation and so has not had a spinal tap to the point. Thank you for sharing her case. [id number]/[facility] #: [id number] ARNAV
[2018-12-01] MEDS ORDERED: Lactulose 300 ML for PR* 10 GM/15 ML BTL PR SCH (15:00)
--- NOTE | 2018-12-01 15:05 | PN ---
Hospitalist Progress Note Date of Service: 12/01/18 2nd Re-evaluation. Per RN Raphael patient started becoming more alert and responsive around 12:50pm. at 1450 she was able to state her name, follow commands, MCMAHON, ask questions and swallow water from a straw. She was not oriented to year (1978). She asked "what happened?" a few minutes after I had explained to her what had happened. She had some pain in tip of tongue but denied SOB, chest pain, neck stiffness, abdominal pain.
[2018-12-01] MEDS: Atorvastatin* 40 MG TAB PO SCH (16:03)
[2018-12-01] MEDS: Apixaban* 5 MG TAB PO SCH ×2 (16:03→21:08)
[2018-12-01] MEDS: Lactulose* 15 ML UDC PO SCH ×2 (16:03→21:15)
[2018-12-01] MEDS: Metoprolol Tartrate TAB* 25 MG PO SCH ×2 (16:03→21:16)
[2018-12-01] MEDS ORDERED: Lidocaine 2% VISCOUS* 15 ML UDC SWISH SPIT PRN (16:31)
[2018-12-02 04:15] LABS: ABS Eosinophils 0.1 10^3/ul (0-0.6); ABS Lymphocytes 0.8 10^3/ul (1.0-4.8); ABS Monocytes 0.5 10^3/ul (0-0.8); ABS Neutrophils 5.6 10^3/ul (1.5-7.7); Eosinophil % 1.4 %; Hematocrit 41 % (35-47); Hemoglobin 12.8 g/dL (12.0-16.0); Lymphocyte % 11.3 %; Mean Corpuscular HGB Conc 31 g/dL (31-36); Mean Corpuscular Hemoglobin 25 pg (27-31); Mean Corpuscular Volume 81 fL (80-97); Mean Platelet Volume 7.6 fL (7.4-10.4); Nucleated Red Blood Cells % 0.1; Platelet Count 174 10^3/uL (150-450); Red Blood Count 5.03 10^6 /uL (3.70-4.87); Red Cell Distribution Width 19 % (10-15)
[2018-12-02 04:26] LABS: ALT 18 U/L (7-52); Albumin 3.5 g/dL (3.2-5.2); Albumin/Globulin Ratio 1.4 (1-3); Alkaline Phosphatase 62 U/L (34-104); BUN/Creatinine Ratio 10.5 (8-20); Blood Urea Nitrogen 11 mg/dL (6-24); CO2 Carbon Dioxide 27 mmol/L (22-32); Calcium 8.3 mg/dL (8.6-10.3); Chloride 107 mmol/L (101-111); EGFR African American 60.4 (>60); EGFR Non-African American 49.9 (>60); Globulin 2.5 g/dL (2-4); Glucose 85 mg/dL (70-100); Sodium 138 mmol/L (135-145)
[2018-12-02 04:45] LABS: Anion Gap 4 mmol/L (2-11)
[2018-12-02] MEDS: NS 0.9% 1000 ML** 1,000 ML IV SCH (05:42)
[2018-12-02] MEDS: Spironolactone TAB* 25 MG PO SCH (08:07)
[2018-12-02] MEDS: Apixaban* 5 MG TAB PO SCH (08:07)
[2018-12-02] MEDS: Metoprolol Tartrate TAB* 25 MG PO SCH ×2 (08:07→20:21)
[2018-12-02] MEDS: Cinacalcet TAB* 30 MG PO SCH (08:21)
[2018-12-02] MEDS: Lactulose* 15 ML UDC PO SCH ×2 (08:22→14:52)
[2018-12-02] MEDS: levETIRAcetam 500 MG IVPREMIX* 500 MG/100 ML BAG IV SCH ×2 (08:38→20:37)
--- NOTE | 2018-12-02 08:57 | PN ---
Subjective Date of Service: 12/02/18 Interval History: no acute events overnight, initially does not remember me or our conversations. Later she would remember both Thinks she is in the [place], [place] half-way, year 1996. Refutes that she had a seizure No complaints. Tbili 2.0 from 1.5 (highly motion limited) MRI brain showed 3mm subdural hematoma that on retrospect was there on CTHs per radiology. Daughters and ION updated at bedside. Records from [facility] arrived but do not include an MRI Brain, however family now thinks this might have been done at [facility] in [place], [place]. later in afternoon/evening began to spike fever Objective Active Medications: Apixaban (Eliquis*) 5 mg PO BID [facility] Last Admin: 12/02/18 08:07 Dose: 5 mg Atorvastatin Calcium (Lipitor*) 40 mg PO QPM [facility] Last Admin: 12/01/18 16:03 Dose: Not Given Cinacalcet (Sensipar Tab*) 30 mg PO DAILY [facility] Last Admin: 12/02/18 08:21 Dose: 30 mg Sodium Chloride (Ns 0.9% 1000 Ml) 1,000 mls @ 75 mls/hr IV PER RATE [facility] Last Admin: 12/02/18 05:42 Dose: 75 mls/hr Levetiracetam (Keppra Iv Premix*) 500 mg in 100 mls @ 400 mls/hr IV Q12H [facility] Last Admin: 12/02/18 08:38 Dose: 400 mls/hr Lactulose (Lactulose*) 15 ml PO TID [facility] Last Admin: 12/02/18 08:22 Dose: 15 ml Lidocaine (Xylocaine 2% Viscous*) 15 ml SWISH SPIT TID PRN PRN Reason: PAIN - MODERATE Lorazepam (Ativan Inj*) 1 mg IV PUSH Q5M PRN PRN Reason: seizure Last Admin: 12/01/18 09:23 Dose: 1 mg Metoprolol Tartrate (Lopressor Iv*) 5 mg IV Q6H PRN PRN Reason: Systolic Bp Greater Than:160 Metoprolol Tartrate (Lopressor Tab*) 25 mg PO BID [facility] Last Admin: 12/02/18 08:07 Dose: 25 mg Miscellaneous (Ativan Pyxis Oates) 1 ea N/A .ATIVAN IV OATES PRN PRN Reason: PYXIS OATES Spironolactone (Aldactone Tab*) 25 mg PO DAILY [facility] Last Admin: 12/02/18 08:07 Dose: 25 mg Vital Signs - 8 hr 12/02/18 12/02/18 12/02/18 00:59 01:00 02:00 Temperature 98.8 F 99.0 F Pulse Rate 89 72 Respiratory 26 26 20 Rate Blood Pressure 157/95 (mmHg) O2 Sat by Pulse 92 96 Oximetry 12/02/18 12/02/18 12/02/18 02:01 03:00 03:01 Temperature 99.0 F 99.1 F 99.1 F Pulse Rate 79 81 89 Respiratory 23 18 18 Rate Blood Pressure 159/99 (mmHg) O2 Sat by Pulse 95 95 94 Oximetry 12/02/18 12/02/18 12/02/18 03:26 04:00 04:01 Temperature 99.1 F 99.3 F 99.3 F Pulse Rate 90 77 83 Respiratory 19 23 24 Rate Blood Pressure 151/92 154/84 (mmHg) O2 Sat by Pulse 93 94 95 Oximetry 12/02/18 12/02/18 12/02/18 05:00 06:00 06:01 Temperature 99.1 F 99.0 F 99.0 F Pulse Rate 84 83 84 Respiratory 17 23 18 Rate Blood Pressure 168/93 155/87 (mmHg) O2 Sat by Pulse 96 91 95 Oximetry 12/02/18 12/02/18 07:00 08:00 Temperature 98.8 F 99.0 F Pulse Rate 78 85 Respiratory 19 23 Rate Blood Pressure 156/104 150/98 (mmHg) O2 Sat by Pulse 92 96 Oximetry Oxygen Devices in Use Now: None Appearance: NAD, but waxing and waning mental status Eyes: No Scleral Icterus Neck: NL Appearance and Movements; NL JVP Respiratory: Symmetrical Chest Expansion and Respiratory Effort Cardiovascular: NL Sounds; No Murmurs; No JVD, RRR Abdominal: NL Sounds; No Tenderness; No Distention Extremities: No Edema Skin: No Rash or Ulcers Neurological: - - in AM was alert but not oriented. Occasional delerium (thouht her was asking her to come home). 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 Result Diagrams: 12/02/18 04:00 12/02/18 08:45 Additional Lab and Data: Laboratory Results - last 24 hr 12/02/18 12/02/18 12/02/18 04:00 04:00 04:00 WBC 7.0 RBC 5.03 H Hgb 12.8 Hct 41 MCV 81 MCH 25 L MCHC 31 RDW 19 H Plt Count 174 MPV 7.6 Neut % (Auto) 79.1 Lymph % (Auto) 11.3 Salem % (Auto) 7.6 Eos % (Auto) 1.4 Baso % (Auto) 0.6 Absolute Neuts (auto) 5.6 Absolute Lymphs (auto) 0.8 L Absolute Monos (auto) 0.5 Absolute Eos (auto) 0.1 Absolute Basos (auto) 0.0 Absolute Nucleated RBC 0.0 Nucleated RBC % 0.1 Sodium 138 Potassium TNP Chloride 107 Carbon Dioxide 27 Anion Gap 4 BUN 11 Creatinine 1.05 H Est GFR ( Amer) 60.4 Est GFR (Non-Af Amer) 49.9 BUN/Creatinine Ratio 10.5 Glucose 85 Calcium 8.3 L Total Bilirubin 2.00 H Direct Bilirubin TNP Indirect Bilirubin TNP AST TNP ALT 18 Alkaline Phosphatase 62 Ammonia TNP Total Protein 6.0 L Albumin 3.5 Globulin 2.5 Albumin/Globulin Ratio 1.4 Urine Color Urine Appearance Urine pH Ur Specific Stambaugh Urine Protein Urine Ketones Urine Blood Urine Nitrate Urine Bilirubin Urine Urobilinogen Ur Leukocyte Esterase Urine WBC (Auto) Urine RBC (Auto) Urine Bacteria Urine Glucose 12/02/18 12/02/18 12/02/18 05:05 05:05 05:55 WBC RBC Hgb Hct MCV MCH MCHC RDW Plt Count MPV Neut % (Auto) Lymph % (Auto) Salem % (Auto) Eos % (Auto) Baso % (Auto) Absolute Neuts (auto) Absolute Lymphs (auto) Absolute Monos (auto) Absolute Eos (auto) Absolute Basos (auto) Absolute Nucleated RBC Nucleated RBC % Sodium Potassium TNP TNP Chloride Carbon Dioxide Anion Gap BUN Creatinine Est GFR ( Amer) Est GFR (Non-Af Amer) BUN/Creatinine Ratio Glucose Calcium Total Bilirubin Direct Bilirubin TNP TNP Indirect Bilirubin AST TNP TNP ALT Alkaline Phosphatase Ammonia TNP Total Protein Albumin Globulin Albumin/Globulin Ratio Urine Color Urine Appearance Urine pH Ur Specific Stambaugh Urine Protein Urine Ketones Urine Blood Urine Nitrate Urine Bilirubin Urine Urobilinogen Ur Leukocyte Esterase Urine WBC (Auto) Urine RBC (Auto) Urine Bacteria Urine Glucose 12/02/18 12/02/18 12/02/18 05:55 08:45 17:02 WBC RBC Hgb Hct MCV MCH MCHC RDW Plt Count MPV Neut % (Auto) Lymph % (Auto) Salem % (Auto) Eos % (Auto) Baso % (Auto) Absolute Neuts (auto) Absolute Lymphs (auto) Absolute Monos (auto) Absolute Eos (auto) Absolute Basos (auto) Absolute Nucleated RBC Nucleated RBC % Sodium 140 Potassium 3.6 Chloride 105 Carbon Dioxide 27 Anion Gap 8 BUN 10 Creatinine 1.04 H Est GFR ( Amer) 61.1 Est GFR (Non-Af Amer) 50.5 BUN/Creatinine Ratio 9.6 Glucose 72 Calcium 8.8 Total Bilirubin Direct Bilirubin Indirect Bilirubin AST ALT Alkaline Phosphatase Ammonia 37 Total Protein Albumin Globulin Albumin/Globulin Ratio Urine Color Yellow Urine Appearance Clear Urine pH 7.0 Ur Specific Stambaugh 1.012 Urine Protein Negative Urine Ketones Negative Urine Blood 3+ A Urine Nitrate Negative Urine Bilirubin Negative Urine Urobilinogen Positive A Ur Leukocyte Esterase 1+ A Urine WBC (Auto) 3+(>20/hpf) A Urine RBC (Auto) 3+(>10/hpf) A Urine Bacteria Absent Urine Glucose Negative Microbiology and Other Data: Microbiology 12/01/18 11:34 Blood Venous Aerobic Blood Culture - Preliminary No Growth Day 1 12/01/18 11:34 Blood Venous Anaerobic Blood Culture - Preliminary No Growth Day 1 12/01/18 11:30 Blood Venous Aerobic Blood Culture - Preliminary No Growth Day 1 12/01/18 11:30 Blood Venous Anaerobic Blood Culture - Preliminary No Growth Day 1 11/30/18 18:10 Urine Urine Culture - Final No Growth (<1,000 CFU/mL) 12/01/18 01:00 Nasal Nasal Screen MRSA (PCR) - Final Mrsa Not Detected Assess/Plan/Problems-Billing Assessment: 82 year old female PMH pAfib(on Eliquis), "TIA"(but 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 p/w confusion, tongue bite, urinary incontinence then observed tonic-clonic seizure in ED. s/p keppra load. Mentation and alertness have since waxed and waned. Initially Hyperammonia 100. MRI brain with evidence of 3mm SDH. Now febrile. - Patient Problems (1) Tonic clonic seizures Current Visit: Yes Status: Acute Code(s): G40.409 - OTH GENERALIZED EPILEPSY , NOT INTRACTABLE, W/O STAT EPI SNOMED Code(s): 028655773 Comment: witnessed by son-in-law who is a veterinary Neurologist at [employer], [facility]. s/p keppra 1000mg in ED and then 500mg IV BID. Appreciate Neurology recs, discussed with Dr. Hooks. EEG without clear epileptiform discharges. Ativan 1mg prn q5min for seizure activity Neuro checks q1h.-> q4h No known history of seizures. Does have remote right MCA territory CVA on noncontast CTH. Request record of [facility] circa spring 2018. MRI Brain (though severely motion artifact limited) showed 3mm SDH which would lower seizure threshold. Unclear which came first. 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 developed first fever today so UA, CXR and BCx repeated hold eliquis given small SDH. may need LP if clinically deterioates no leukocytosis and CRP was negatigve empiric CFTX started. CXR with marked cardiomegaly. Pt given seizure at risk for aspiration event. (3) SDH (subdural hematoma) Current Visit: Yes Status: Acute Code(s): S06.5X9A - TRAUM SUBDR HEM W LOC OF UNSP DURATION, INIT SNOMED Code(s): 173691386 Comment: will repeat CTH noncontrast on 12/03. 3mm holding eliquis, last dose 10/7 AM (4) Hyperammonemia Current Visit: Yes Status: Acute Code(s): E72.20 - DISORDER OF UREA CYCLE METABOLISM, UNSPECIFIED SNOMED Code(s): 9698072 Comment: s/p lactulose per rectum then po. Improved from 100 to 34 then 37. Will stop standing lactulose and recheck in AM. INR 1.08 Tbil No other transaminitis. (5) Chronic atrial fibrillation Current Visit: No Status: Acute Code(s): I48.2 - CHRONIC ATRIAL FIBRILLATION * DO NOT USE * SNOMED Code(s): 503246135 Comment: tele replete Mg >2, K>4 prn lopressor prn HR sustained >120 for 5 minutes. 80s currently. not safe for eliquis po given continued AMS. f/u INR and neuro recs. Status and Disposition: medicine inpatient in ICU.
[2018-12-02] MEDS: LORazepam INJ* 2 MG/ML 1 ML VIAL IV PUSH PRN (09:13)
[2018-12-02 09:15] LABS: BUN/Creatinine Ratio 9.6 (8-20); Calcium 8.8 mg/dL (8.6-10.3); EGFR African American 61.1 (>60); EGFR Non-African American 50.5 (>60); Potassium 3.6 mmol/L (3.5-5.0)
[2018-12-02] MEDS ORDERED: hydrALAZINE IV* 20 MG/ML VIAL IV SLOW PU PRN (12:35)
[2018-12-02] MEDS ORDERED: Metoprolol Tartrate IV* 1 MG/ML 5 ML VIAL IV PRN (12:35)
[2018-12-02 17:32] LABS: Urine Appearance Clear; Urine Bacteria Absent (Absent); Urine Bilirubin Negative (Negative); Urine Blood 3+ (Negative); Urine Color Yellow; Urine Glucose Negative (Negative); Urine Ketones Negative (Negative); Urine Nitrite Negative (Negative); Urine Protein Negative (Negative); Urine Red Blood Cell 3+(>10/hpf) (Absent); Urine Specific Gravity 1.012 (1.010-1.030); Urine Urobilinogen Positive (Negative); Urine White Blood Cell 3+(>20/hpf) (Absent)
[2018-12-02] MEDS: Atorvastatin* 40 MG TAB PO SCH (18:32)
[2018-12-02] MEDS: cefTRIAXone(*) 1 GM in NS 0.9% 50 ML* 50 ML IVPB SCH (18:32)
--- NOTE | 2018-12-02 20:39 | EEG ---
ELECTROENCEPHALOGRAPHY: DATE OF STUDY: 12/01/18 - ROOM #ICU-05 DATE OF DICTATION: 12/02/18 PATIENT OF: Dr. Melchor Roche. CLINICAL PROBLEM: This is an 82-year-old woman being evaluated for coma following a seizure in the ER and a probable seizure at home. 12/01/ MEDICATIONS: Include: 1. Ativan. 2. Keppra. 3. Metoprolol. 4. Eliquis. REPORT: With the patient eyes closed and not following commands, background cerebral activity consists of admixed delta, theta and beta range frequencies of diffuse field. There is a single possible left frontotemporal sharp wave. No other epileptiform potentials. No other focal abnormalities. CLINICAL IMPRESSION: This EEG is abnormal principally for diffuse slowing of background consistent with an encephalopathy, but nonspecific as to etiology. There is a single possible left frontotemporal sharp wave suggestive of a predisposition to focal seizures. [id number]/CPS #: [id number] MTDD
--- NOTE | 2018-12-03 02:22 | PN ---
NEUROLOGICAL FOLLOWUP NOTE: DATE OF SERVICE: 12/02/18 HISTORY: This is an 82-year-old woman. She has had no further seizures and she began to wake up yesterday afternoon when I called in the afternoon. The nurse said that she was speaking in short sentences and answering some questions appropriately. She has continued to make progress. MEDICATIONS: At this point are: 1. Eliquis 5 mg b.i.d. 2. Lipitor 40 mg q.p.m. 3. Sensipar 30 mg daily. 4. Hydralazine p.r.n. 5. Lactulose 15 t.i.d. 6. Keppra 500 b.i.d. 7. Lorazepam, which she got prior to the MRI scan today. 8. Metoprolol 25 mg b.i.d. 9. Spironolactone 25 mg daily. PHYSICAL EXAMINATION: Temperature 99.9, pulse 90, respirations 29, blood pressure 140/80. She is alert. She knew her name. She said she was 85. She did not knew which hospital she was in. I spoke to Dr. Roche, who said that she was more clear before she got her Ativan and was answering questions even more appropriately. She spoke in short sentences and followed non-midline commands. Cranial nerves II through XII were intact. Strength was symmetric. Toes were downgoing. Chest clear. DIAGNOSTIC STUDIES/LAB DATA: I reviewed her MRI scan, which showed no acute stroke and had prominent artifact. Radiologist read it as 3 mm subdural in the left parietooccipital convexity. White count and CBC today were normal. Chemistry showed normal BMP other than the creatinine of 1.04. Earlier ammonia level was 37 as of this morning. In that she has had significant improvement since yesterday morning when I last saw her, this is in keeping with somebody whose major problem is being postictal. She may have had a concussion as well and has a small subdural tumor. We are holding the Eliquis. I have spoken to Dr. Roche. He may want to have Dr. Cruz comment on when we can best restart the Eliquis. She will need a followup CT scan as well. Some of her memory issues definitely may be secondary to Ativan that she got from prior to the MRI scan. Her ammonia level remains low on the lactulose. Thank you for sharing her case. [id number]/CPS #: [id number] ARNAV
[2018-12-03] MEDS: NS 0.9% 1000 ML** 1,000 ML IV SCH (05:36)
[2018-12-03 06:52] LABS: ABS Lymphocytes 0.7 10^3/ul (1.0-4.8); ABS Monocytes 0.8 10^3/ul (0-0.8); Eosinophil % 0.3 %; Hematocrit 42 % (35-47); Hemoglobin 13.9 g/dL (12.0-16.0); Lymphocyte % 7.1 %; Mean Corpuscular HGB Conc 33 g/dL (31-36); Mean Corpuscular Hemoglobin 26 pg (27-31); Mean Corpuscular Volume 79 fL (80-97); Mean Platelet Volume 7.4 fL (7.4-10.4); Platelet Count 190 10^3/uL (150-450); Red Blood Count 5.34 10^6 /uL (3.70-4.87); Red Cell Distribution Width 18 % (10-15); White Blood Count 9.6 10^3/uL (3.5-10.8)
[2018-12-03 07:08] LABS: Albumin 3.6 g/dL (3.2-5.2); Indirect Bilirubin 2.3 mg/dL (0.3-1.0); Magnesium 1.6 mg/dL (1.9-2.7); Potassium 3.3 mmol/L (3.5-5.0); Total Bilirubin 2.8 mg/dL (0.2-1.0)
[2018-12-03 07:14] LABS: Albumin/Globulin Ratio 1.4 (1-3); BUN/Creatinine Ratio 10.8 (8-20); C Reactive Protein 44.79 mg/L (<8.01); EGFR African American 69.5 (>60); EGFR Non-African American 57.4 (>60); Globulin 2.6 g/dL (2-4); Total Protein 6.2 g/dL (6.4-8.9)
[2018-12-03] MEDS: Metoprolol Tartrate TAB* 25 MG PO SCH ×2 (09:29→21:47)
[2018-12-03] MEDS: Cinacalcet TAB* 30 MG PO SCH (09:29)
[2018-12-03] MEDS: Spironolactone TAB* 25 MG PO SCH (09:30)
[2018-12-03] MEDS: levETIRAcetam 500 MG IVPREMIX* 500 MG/100 ML BAG IV SCH ×2 (09:31→22:37)
[2018-12-03] MEDS: KCL 20 MEQ/100 ML IVPREMIX* 20 MEQ/100 ML BAG IV SCH ×2 (09:31→13:37)
--- NOTE | 2018-12-03 12:06 | ECHO ---
*[facility]* [place] [address] Fax #: [phone] Transthoracic Echocardiogram Patient: Nirali Archibald : 1935 Study Date: 12/03/2018 Age: 82 Gender: F HR: 76 bpm Height: 67 in /170.2 cm BSA: 1.77 m^2 Weight: 146.7 lb /66.7 kg BMI: 23 kg/m^2 *Pathology Supervisor: * Lorraine Berman [facility] *Referring Physician: * Melchor Roche ; Tommy Esquivel V *Reading Physician: * Diego Tang MD Indications: Congestive Heart Failure. History: Atrial fibrillation. Congestive heart failure. Aortic stenosis. Mitral regurgitation. Severe tricuspid regurgitation. Pericardial effusion. Cerebrovascular accident. Risk factors: Hypertension. Dyslipidemia. Conclusions Summary: - Left ventricle: The cavity size is normal. Wall thickness is mildly increased. Systolic function is normal. The estimated ejection fraction is 55-60%. Wall motion is normal; there are no regional wall motion abnormalities. - Right ventricle: Systolic function is normal. - Left atrium: The atrium is severely dilated. - Mitral valve: There is moderate to severe regurgitation. The valve area by pressure half-time is 3.3 cm^2. - Aortic valve: The annulus is mildly calcified. The valve is trileaflet. The leaflets are mildly thickened. The findings are consistent with very mild stenosis. There is mild regurgitation. The mean systolic gradient is 6.0 mm Hg. The valve area by the peak velocity method is 1.40 cm^2. - Tricuspid valve: There is severe regurgitation. - Pericardium, extracardiac: A small pericardial effusion is identified posterior to the heart. - Pulmonary arteries: Systolic pressure is severely increased. The peak pressure during systole by Doppler is 69.0 mm Hg. - Compared to study of 08/02/18, the left ventricle function severe tricuspid regurgitation and severe pulmonary hypertension are the same. The degree of mitral regurgitation is worse. Study data: Transthoracic echocardiogram. Procedure: Transthoracic echocardiography was performed. Image quality was good. Complete 2D, spectral Doppler, and color flow Doppler. Location: ICU Patient status: Inpatient. Patient room number: 5. Rhythm: Atrial fibrillation. Findings Left ventricle: The cavity size is normal. Wall thickness is mildly increased. Systolic function is normal. The estimated ejection fraction is 55-60%. Wall motion is normal; there are no regional wall motion abnormalities. Left ventricular diastolic function parameters are indeterminate. Right ventricle: The cavity size is mildly dilated. Systolic function is normal. Left atrium: The atrium is severely dilated. Right atrium: The atrium is massively dilated. Mitral valve: The Mitral valve annulus appears calcified. The leaflets are mildly thickened. The findings are consistent with mild stenosis. There is moderate to severe regurgitation. Aortic valve: The annulus is mildly calcified. The valve is trileaflet. The leaflets are mildly thickened. The findings are consistent with very mild stenosis. There is mild regurgitation. Tricuspid valve: The leaflets are normal thickness. There is no evidence of stenosis. There is severe regurgitation. Hepatic estephania flow reversal is present Pulmonic valve: The leaflets are normal thickness. There is no evidence of stenosis. There is trace to mild regurgitation. Aorta: Aortic root: The aortic root is appears normal. Ascending aorta: The ascending aorta is mildly dilated. Aortic arch: The aortic arch is mildly dilated. Pericardium: A small pericardial effusion is identified posterior to the heart. Pulmonary arteries: The main pulmonary artery is normal-sized. Systolic pressure is severely increased. Systemic veins: Inferior vena cava: The vessel is normal in size. There is (< 50%) respiratory change in the IVC dimension. Measurements Left ventricle Value Ref Aortic valve Value Ref BROOKE, LAX 4.6 cm 3.8 - 5.2 [place] diam, ED 1.6 cm ----- ESD, LAX 2.8 cm 2.2 - 3.5 Peak v, S 1.64 m/sec ----- FS, LAX 40 % 27 - 45 VTI, S 29.0 cm ----- PW, ED, LAX (H) 1.1 cm 0.6 - 0.9 Mean grad, S 6.0 mm Hg ----- EF 70 % 54 - 74 Peak grad, S 11.0 mm Hg ----- E', lat [place], TDI (L) 7.8 cm/sec >=10.0 LVOT/AV, VTI ratio 0.4 --- -- E/e', lat [place], 19 KYAW, VTI 1.40 cm^2 ----- TDI KYAW, Vmax 1.40 cm^2 ----- E', med [place], TDI 7.2 cm/sec >=7.0 AR peak v 4.14 m/sec --- -- E/e', med [place], 20 AR PHT 453 ms ----- TDI AR peak grad 69 mm Hg ----- E', avg, TDI 7.5 cm/sec E/e', avg, TDI (H) 20 <=14 Mitral valve Value Ref Peak E 1.47 m/sec ----- LVOT Value Ref Decel time 144 ms ----- Diam, S 2.00 cm PHT 76 ms ----- Area 3.1 cm^2 Mean grad, D 3.0 mm Hg ----- Peak issac, S 0.72 m/sec Peak grad, D 9.0 mm Hg ----- VTI, S 13.0 cm MVA, PHT 3.3 cm^2 ----- Peak grad, S 2 mm Hg ERO, PISA 0.08 cm^2 ----- Mean grad, S 1 mm Hg MR vol, PISA 14 ml ----- SV 26 ml MR fraction, PISA 35 % ----- Ventricular septum Value Ref Tricuspid valve Value Ref IVS, ED (H) 1.1 cm 0.6 - 0.9 TR peak v (H) 3.5 m/sec <=2.8 Peak RV-RA grad, S 49 mm Hg ----- Right ventricle Value Ref BROOKE, LAX 4.2 cm Aortic root Value Ref BROOKE minor ax, A4C (H) 3.9 cm 1.9 - 3.5 Root diam 3.1 cm <4.0 mid Pressure, S 69 mm Hg Ascending aorta Value Ref AAo AP diam, S 3.6 cm ----- Left atrium Value Ref AP dim, ES (H) 4.50 cm 2.70 - Aortic arch Value Ref 3.80 Arch diam 3.9 cm ----- ML dim, A4C 5.5 cm SI dim, A4C 6.1 cm Pulmonary artery Value Ref Vol/bsa, ES, A/L (H) 84 ml/m^2 16 - 34 Pressure, S 69.0 mm Hg ----- Right atrium Value Ref Inferior vena cava Value Ref SI dim, ES (H) 8.5 cm 3.4 - 5.3 Diam 1.9 cm ----- ML dim, ES, A4C (H) 7.1 cm 2.6 - 4.4 Estimated RAP 20 mm Hg Legend: (L) and (H) osbaldo values outside specified reference range. Prepared and electronically signed by Diego Tang MD 12/03/2018 12:05
[2018-12-03] MEDS ORDERED: Magnesium Sulfate 1 GM IV* 1 GM/100 ML BAG IV ONE (13:00)
--- NOTE | 2018-12-03 13:38 | PN ---
Subjective Date of Service: 12/03/18 Interval History: Pt continues to be lethargic today. started on IVF last night, ate little for breakfast. Temp max 100.6 Objective Active Medications: Atorvastatin Calcium (Lipitor*) 40 mg PO QPM COUNT INCLUDES [facility] Last Admin: 12/02/18 18:32 Dose: 40 mg Cinacalcet (Sensipar Tab*) 30 mg PO DAILY COUNT INCLUDES THE [facility] Last Admin: 12/03/18 09:29 Dose: 30 mg Hydralazine HCl (Apresoline Iv*) 10 mg IV SLOW PU Q2H PRN PRN Reason: alternate with lopressor Last Admin: 12/02/18 12:46 Dose: 10 mg Levetiracetam (Keppra Iv Premix*) 500 mg in 100 mls @ 400 mls/hr IV Q12H COUNT INCLUDES THE [facility] Last Admin: 12/03/18 09:31 Dose: 400 mls/hr Ceftriaxone Sodium 1 gm/ (Sodium Chloride) 50 mls @ 100 mls/hr IVPB Q24H COUNT INCLUDES THE [facility] Last Admin: 12/02/18 18:32 Dose: 100 mls/hr Sodium Chloride (Ns 0.9% 1000 Ml) 1,000 mls @ 75 mls/hr IV PER RATE COUNT INCLUDES THE [facility] Last Admin: 12/03/18 05:36 Dose: 75 mls/hr Lidocaine (Xylocaine 2% Viscous*) 15 ml SWISH SPIT TID PRN PRN Reason: PAIN - MODERATE Lorazepam (Ativan Inj*) 1 mg IV PUSH Q5M PRN PRN Reason: seizure Last Admin: 12/02/18 09:13 Dose: 1 mg Magnesium Oxide (Magox 400 Tab*) 800 mg PO DAILY COUNT INCLUDES THE [facility] Metoprolol Tartrate (Lopressor Tab*) 25 mg PO BID COUNT INCLUDES THE [facility] Last Admin: 12/03/18 09:29 Dose: 25 mg Metoprolol Tartrate (Lopressor Iv*) 5 mg IV Q2H PRN PRN Reason: Systolic Bp Greater Than:160 Miscellaneous (Ativan Pyxis Oates) 1 ea N/A .ATIVAN IV OATES PRN PRN Reason: PYXIS OATES Spironolactone (Aldactone Tab*) 25 mg PO DAILY COUNT INCLUDES THE [facility] Last Admin: 12/03/18 09:30 Dose: 25 mg Vital Signs - 8 hr 12/03/18 12/03/18 12/03/18 06:00 07:00 07:01 Temperature 100.2 F 99.3 F Pulse Rate 99 90 Respiratory 20 23 22 Rate Blood Pressure 147/88 (mmHg) O2 Sat by Pulse 94 96 Oximetry 12/03/18 12/03/18 12/03/18 07:04 07:06 08:00 Temperature 99.9 F 99.9 F 100.0 F Pulse Rate 95 92 94 Respiratory 24 27 24 Rate Blood Pressure 157/100 160/90 150/87 (mmHg) O2 Sat by Pulse 96 90 100 Oximetry 12/03/18 12/03/18 12/03/18 08:01 09:00 10:00 Temperature 99.7 F 99.7 F 100.2 F Pulse Rate 88 92 89 Respiratory 20 19 31 Rate Blood Pressure 164/76 155/96 (mmHg) O2 Sat by Pulse 100 100 100 Oximetry 12/03/18 12/03/18 12/03/18 11:00 12:00 12:01 Temperature 100.6 F 100.4 F 100.4 F Pulse Rate 86 89 87 Respiratory 27 30 18 Rate Blood Pressure 143/94 156/88 (mmHg) O2 Sat by Pulse 99 94 94 Oximetry Oxygen Devices in Use Now: None Appearance: 82 yo F in nAD, follows commands with prompting, prefers to have eyes closed, stated that she is 56 yo, knows that she's lived in [place] in the past 3 years, aware of location Eyes: No Scleral Icterus, PERRLA Ears/Nose/Mouth/Throat: NL Teeth, Lips, Gums, Mucous Membranes Moist Neck: NL Appearance and Movements; NL JVP Respiratory: Symmetrical Chest Expansion and Respiratory Effort, Clear to Auscultation Cardiovascular: - - irregular Abdominal: NL Sounds; No Tenderness; No Distention, No Hepatosplenomegaly Lymphatic: No Cervical Adenopathy, No Auricular Adenopathy Extremities: No Edema, No Clubbing, Cyanosis Skin: No Nodules or Sclerosis Neurological: NL Muscle Strength and Tone Result Diagrams: 12/03/18 06:38 12/03/18 06:38 Additional Lab and Data: Laboratory Results - last 24 hr 12/02/18 12/02/18 12/02/18 04:00 04:00 04:00 WBC 7.0 RBC 5.03 H Hgb 12.8 Hct 41 MCV 81 MCH 25 L MCHC 31 RDW 19 H Plt Count 174 MPV 7.6 Neut % (Auto) 79.1 Lymph % (Auto) 11.3 [place] % (Auto) 7.6 Eos % (Auto) 1.4 Baso % (Auto) 0.6 Absolute Neuts (auto) 5.6 Absolute Lymphs (auto) 0.8 L Absolute Monos (auto) 0.5 Absolute Eos (auto) 0.1 Absolute Basos (auto) 0.0 Absolute Nucleated RBC 0.0 Nucleated RBC % 0.1 Sodium 138 Potassium TNP Chloride 107 Carbon Dioxide 27 Anion Gap 4 BUN 11 Creatinine 1.05 H Est GFR ( Amer) 60.4 Est GFR (Non-Af Amer) 49.9 BUN/Creatinine Ratio 10.5 Glucose 85 Calcium 8.3 L Total Bilirubin 2.00 H Direct Bilirubin TNP Indirect Bilirubin TNP AST TNP ALT 18 Alkaline Phosphatase 62 Ammonia TNP Total Protein 6.0 L Albumin 3.5 Globulin 2.5 Albumin/Globulin Ratio 1.4 Urine Color Urine Appearance Urine pH Ur Specific [place] Urine Protein Urine Ketones Urine Blood Urine Nitrate Urine Bilirubin Urine Urobilinogen Ur Leukocyte Esterase Urine WBC (Auto) Urine RBC (Auto) Urine Bacteria Urine Glucose 12/02/18 12/02/18 12/02/18 05:05 05:05 05:55 WBC RBC Hgb Hct MCV MCH MCHC RDW Plt Count MPV Neut % (Auto) Lymph % (Auto) [place] % (Auto) Eos % (Auto) Baso % (Auto) Absolute Neuts (auto) Absolute Lymphs (auto) Absolute Monos (auto) Absolute Eos (auto) Absolute Basos (auto) Absolute Nucleated RBC Nucleated RBC % Sodium Potassium TNP TNP Chloride Carbon Dioxide Anion Gap BUN Creatinine Est GFR ( Amer) Est GFR (Non-Af Amer) BUN/Creatinine Ratio Glucose Calcium Total Bilirubin Direct Bilirubin TNP TNP Indirect Bilirubin AST TNP TNP ALT Alkaline Phosphatase Ammonia TNP Total Protein Albumin Globulin Albumin/Globulin Ratio Urine Color Urine Appearance Urine pH Ur Specific [place] Urine Protein Urine Ketones Urine Blood Urine Nitrate Urine Bilirubin Urine Urobilinogen Ur Leukocyte Esterase Urine WBC (Auto) Urine RBC (Auto) Urine Bacteria Urine Glucose 12/02/18 12/02/18 12/02/18 05:55 08:45 17:02 WBC RBC Hgb Hct MCV MCH MCHC RDW Plt Count MPV Neut % (Auto) Lymph % (Auto) [place] % (Auto) Eos % (Auto) Baso % (Auto) Absolute Neuts (auto) Absolute Lymphs (auto) Absolute Monos (auto) Absolute Eos (auto) Absolute Basos (auto) Absolute Nucleated RBC Nucleated RBC % Sodium 140 Potassium 3.6 Chloride 105 Carbon Dioxide 27 Anion Gap 8 BUN 10 Creatinine 1.04 H Est GFR ( Amer) 61.1 Est GFR (Non-Af Amer) 50.5 BUN/Creatinine Ratio 9.6 Glucose 72 Calcium 8.8 Total Bilirubin Direct Bilirubin Indirect Bilirubin AST ALT Alkaline Phosphatase Ammonia 37 Total Protein Albumin Globulin Albumin/Globulin Ratio Urine Color Yellow Urine Appearance Clear Urine pH 7.0 Ur Specific [place] 1.012 Urine Protein Negative Urine Ketones Negative Urine Blood 3+ A Urine Nitrate Negative Urine Bilirubin Negative Urine Urobilinogen Positive A Ur Leukocyte Esterase 1+ A Urine WBC (Auto) 3+(>20/hpf) A Urine RBC (Auto) 3+(>10/hpf) A Urine Bacteria Absent Urine Glucose Negative Microbiology and Other Data: Microbiology 12/01/18 11:34 Blood Venous Aerobic Blood Culture - Preliminary No Growth Day 1 12/01/18 11:34 Blood Venous Anaerobic Blood Culture - Preliminary No Growth Day 1 12/01/18 11:30 Blood Venous Aerobic Blood Culture - Preliminary No Growth Day 1 12/01/18 11:30 Blood Venous Anaerobic Blood Culture - Preliminary No Growth Day 1 11/30/18 18:10 Urine Urine Culture - Final No Growth (<1,000 CFU/mL) 12/01/18 01:00 Nasal Nasal Screen MRSA (PCR) - Final Mrsa Not Detected Assess/Plan/Problems-Billing Assessment: 82 year old female PMH pAfib(on Eliquis), "TIA"(but old right MCA infarct on [facility] here), hyperparathyroidism c/b hypercalcemia s/p resection June 2018), severe TVR, moderate MVR, HTN, CAD(no stents), thrombocytopenia. p/w confusion, tongue bite, urinary incontinence then observed tonic-clonic seizure in ED. s/p keppra load. Mentation and alertness have since waxed and waned. Initially Hyperammonia 100. MRI brain with evidence of 3mm SDH. Now febrile. - Patient Problems (1) Tonic clonic seizures Comment: witnessed by son-in-law who is a veterinary Neurologist at [place], Alex Hawthorne. s/p keppra 1000mg in ED and then 500mg IV BID. Appreciate Neurology recs. Still appears postictal EEG without clear epileptiform discharges. Ativan 1mg prn q5min for seizure activity Neuro checks q1h.-> q4h No known history of seizures. Does have remote right MCA territory CVA on noncontast CTH. MRI Brain (though severely motion artifact limited) showed 3mm SDH which would lower seizure threshold. Unclear which came first. (2) Hyperammonemia Current Visit: Yes Comment: s/p lactulose per rectum then po. Improved from 100 to 34 then 37. lactulose stopped on 12/02/18, ammonia still INR 1.08 Tbili elevated No other transaminitis. (3) SDH (subdural hematoma) Comment: repeat CTnoncontrast on 12/03 shows no change in 3 mm SDH holding eliquis, last dose 12/02 AM (4) Altered mental status Comment: DDx seizure with possible status, hepatic encephalopathy developed first fever 12/02/18 so UA, CXR and BCx repeated -started on Ceftriaxone for possible aspiration onn 12/02/18, will add flagyl hold eliquis given small SDH. may need LP if clinically deteriorates no leukocytosis (5) Chronic atrial fibrillation Comment: chronic, rate controlled lopressor prn HR sustained >120 for 5 minutes. (6) Bilirubinemia Comment: unconjugated bili up to 2.3-differential includes Gilbert's or hemolysis, but pt is not developing anemia. Prince Kingsley's (7) DVT prophylaxis Comment: SCD's, anticoagulation stopped due to SDH Status and Disposition: inpatient, transfer to med floor today
[2018-12-03] MEDS: metroNIDAZOLE IV 500 MG/100ML* 500 MG/100 ML BAG IVPB SCH ×2 (14:28→21:47)
[2018-12-03] MEDS: cefTRIAXone(*) 1 GM in NS 0.9% 50 ML* 50 ML IVPB SCH (18:04)
[2018-12-03] MEDS: Atorvastatin* 40 MG TAB PO SCH ×2 (18:04→18:07)
[2018-12-04] MEDS: metroNIDAZOLE IV 500 MG/100ML* 500 MG/100 ML BAG IVPB SCH ×3 (04:55→23:16)
[2018-12-04] MEDS ORDERED: Acetaminophen TAB* 325 MG PO PRN ×2 (08:50→10:30)
[2018-12-04] MEDS: Metoprolol Tartrate TAB* 25 MG PO SCH ×2 (09:09→21:29)
[2018-12-04] MEDS: Spironolactone TAB* 25 MG PO SCH (09:09)
[2018-12-04] MEDS: Cinacalcet TAB* 30 MG PO SCH (09:09)
[2018-12-04] MEDS: Magnesium Oxide TAB* 400 MG PO SCH (09:10)
[2018-12-04] MEDS: levETIRAcetam 500 MG IVPREMIX* 500 MG/100 ML BAG IV SCH ×2 (09:24→21:29)
[2018-12-04 10:26] LABS: ABS Lymphocytes 0.8 10^3/ul (1.0-4.8); ABS Monocytes 0.8 10^3/ul (0-0.8); Eosinophil % 0.2 %; Hematocrit 41 % (35-47); Hemoglobin 13.4 g/dL (12.0-16.0); Lymphocyte % 7.2 %; Mean Corpuscular HGB Conc 33 g/dL (31-36); Mean Corpuscular Hemoglobin 26 pg (27-31); Mean Corpuscular Volume 79 fL (80-97); Mean Platelet Volume 7.8 fL (7.4-10.4); Nucleated Red Blood Cells % 0.1; Platelet Count 179 10^3/uL (150-450); Red Blood Count 5.19 10^6 /uL (3.70-4.87); Red Cell Distribution Width 18 % (10-15); White Blood Count 10.7 10^3/uL (3.5-10.8)
[2018-12-04 10:39] LABS: Albumin 3.4 g/dL (3.2-5.2); Albumin/Globulin Ratio 1.2 (1-3); Globulin 2.8 g/dL (2-4); Indirect Bilirubin 1.6 mg/dL (0.3-1.0); Total Bilirubin 2.2 mg/dL (0.2-1.0); Total Protein 6.2 g/dL (6.4-8.9)
--- NOTE | 2018-12-04 11:02 | PN ---
Subjective Date of Service: 12/04/18 Interval History: Pt is feeling better, still forgetful and thought she was 56 yo, but aware of the mistake when corrected. Knows she is in [place]. Asked what happened, and was explained that she had a seizure C/o b/l knee pain in AM and give a dose of Tylenol Objective Active Medications: Acetaminophen (Tylenol Tab*) 650 mg PO Q4H PRN PRN Reason: FEVER/PAIN Last Admin: 12/04/18 09:11 Dose: 650 mg Atorvastatin Calcium (Lipitor*) 40 mg PO QPM [facility] Last Admin: 12/03/18 18:07 Dose: Not Given Cinacalcet (Sensipar Tab*) 30 mg PO DAILY [facility] Last Admin: 12/04/18 09:09 Dose: 30 mg Hydralazine HCl (Apresoline Iv*) 10 mg IV SLOW PU Q2H PRN PRN Reason: alternate with lopressor Last Admin: 12/02/18 12:46 Dose: 10 mg Levetiracetam (Keppra Iv Premix*) 500 mg in 100 mls @ 400 mls/hr IV Q12H [facility] Last Admin: 12/04/18 09:24 Dose: 400 mls/hr Ceftriaxone Sodium 1 gm/ (Sodium Chloride) 50 mls @ 100 mls/hr IVPB Q24H [facility] Last Admin: 12/03/18 18:04 Dose: 100 mls/hr Sodium Chloride (Ns 0.9% 1000 Ml) 1,000 mls @ 75 mls/hr IV PER RATE [facility] Last Admin: 12/03/18 05:36 Dose: 75 mls/hr Metronidazole/Sodium Chloride (Flagyl 500 Mg Ivpb*) 500 mg in 100 mls @ 100 mls /hr IVPB Q8H [facility] Last Admin: 12/04/18 04:55 Dose: 100 mls/hr Lidocaine (Xylocaine 2% Viscous*) 15 ml SWISH SPIT TID PRN PRN Reason: PAIN - MODERATE Lorazepam (Ativan Inj*) 1 mg IV PUSH Q5M PRN PRN Reason: seizure Last Admin: 12/02/18 09:13 Dose: 1 mg Magnesium Oxide (Magox 400 Tab*) 800 mg PO DAILY [facility] Last Admin: 12/04/18 09:10 Dose: 800 mg Metoprolol Tartrate (Lopressor Tab*) 25 mg PO BID [facility] Last Admin: 12/04/18 09:09 Dose: 25 mg Metoprolol Tartrate (Lopressor Iv*) 5 mg IV Q2H PRN PRN Reason: Systolic Bp Greater Than:160 Miscellaneous (Ativan Pyxis Oates) 1 ea N/A .ATIVAN IV OATES PRN PRN Reason: PYXIS OATES Spironolactone (Aldactone Tab*) 25 mg PO DAILY [facility] Last Admin: 12/04/18 09:09 Dose: 25 mg Vital Signs - 8 hr 12/04/18 12/04/18 12/04/18 03:00 04:01 04:26 Temperature 100.6 F 100.6 F 100.4 F Pulse Rate Respiratory Rate Blood Pressure 146/91 (mmHg) O2 Sat by Pulse Oximetry 12/04/18 12/04/18 12/04/18 04:59 05:00 06:00 Temperature 100.4 F 100.6 F 100.6 F Pulse Rate 97 Respiratory 18 Rate Blood Pressure 146/91 (mmHg) O2 Sat by Pulse 97 Oximetry 12/04/18 12/04/18 12/04/18 07:00 08:00 08:28 Temperature 100.6 F 100.6 F 100.6 F Pulse Rate 90 Respiratory 17 21 Rate Blood Pressure 147/78 (mmHg) O2 Sat by Pulse 95 Oximetry Oxygen Devices in Use Now: None Appearance: 82 yo f in nAD, AAOx2, forgetful, much more awake and cooperative today Eyes: No Scleral Icterus, PERRLA Ears/Nose/Mouth/Throat: NL Teeth, Lips, Gums, Mucous Membranes Moist Neck: NL Appearance and Movements; NL JVP, Trachea Midline Respiratory: Symmetrical Chest Expansion and Respiratory Effort, Clear to Auscultation Cardiovascular: - - irregular, 3/6 JC at apex Abdominal: NL Sounds; No Tenderness; No Distention Lymphatic: No Cervical Adenopathy Extremities: No Edema, No Clubbing, Cyanosis Skin: No Rash or Ulcers, No Nodules or Sclerosis Neurological: NL Muscle Strength and Tone Result Diagrams: 12/04/18 10:05 12/03/18 06:38 Additional Lab and Data: Laboratory Results - last 24 hr 12/02/18 12/02/18 12/02/18 04:00 04:00 04:00 WBC 7.0 RBC 5.03 H Hgb 12.8 Hct 41 MCV 81 MCH 25 L MCHC 31 RDW 19 H Plt Count 174 MPV 7.6 Neut % (Auto) 79.1 Lymph % (Auto) 11.3 [place] % (Auto) 7.6 Eos % (Auto) 1.4 Baso % (Auto) 0.6 Absolute Neuts (auto) 5.6 Absolute Lymphs (auto) 0.8 L Absolute Monos (auto) 0.5 Absolute Eos (auto) 0.1 Absolute Basos (auto) 0.0 Absolute Nucleated RBC 0.0 Nucleated RBC % 0.1 Sodium 138 Potassium TNP Chloride 107 Carbon Dioxide 27 Anion Gap 4 BUN 11 Creatinine 1.05 H Est GFR ( Amer) 60.4 Est GFR (Non-Af Amer) 49.9 BUN/Creatinine Ratio 10.5 Glucose 85 Calcium 8.3 L Total Bilirubin 2.00 H Direct Bilirubin TNP Indirect Bilirubin TNP AST TNP ALT 18 Alkaline Phosphatase 62 Ammonia TNP Total Protein 6.0 L Albumin 3.5 Globulin 2.5 Albumin/Globulin Ratio 1.4 Urine Color Urine Appearance Urine pH Ur Specific [place] Urine Protein Urine Ketones Urine Blood Urine Nitrate Urine Bilirubin Urine Urobilinogen Ur Leukocyte Esterase Urine WBC (Auto) Urine RBC (Auto) Urine Bacteria Urine Glucose 12/02/18 12/02/18 12/02/18 05:05 05:05 05:55 WBC RBC Hgb Hct MCV MCH MCHC RDW Plt Count MPV Neut % (Auto) Lymph % (Auto) [place] % (Auto) Eos % (Auto) Baso % (Auto) Absolute Neuts (auto) Absolute Lymphs (auto) Absolute Monos (auto) Absolute Eos (auto) Absolute Basos (auto) Absolute Nucleated RBC Nucleated RBC % Sodium Potassium TNP TNP Chloride Carbon Dioxide Anion Gap BUN Creatinine Est GFR ( Amer) Est GFR (Non-Af Amer) BUN/Creatinine Ratio Glucose Calcium Total Bilirubin Direct Bilirubin TNP TNP Indirect Bilirubin AST TNP TNP ALT Alkaline Phosphatase Ammonia TNP Total Protein Albumin Globulin Albumin/Globulin Ratio Urine Color Urine Appearance Urine pH Ur Specific [place] Urine Protein Urine Ketones Urine Blood Urine Nitrate Urine Bilirubin Urine Urobilinogen Ur Leukocyte Esterase Urine WBC (Auto) Urine RBC (Auto) Urine Bacteria Urine Glucose 12/02/18 12/02/18 12/02/18 05:55 08:45 17:02 WBC RBC Hgb Hct MCV MCH MCHC RDW Plt Count MPV Neut % (Auto) Lymph % (Auto) [place] % (Auto) Eos % (Auto) Baso % (Auto) Absolute Neuts (auto) Absolute Lymphs (auto) Absolute Monos (auto) Absolute Eos (auto) Absolute Basos (auto) Absolute Nucleated RBC Nucleated RBC % Sodium 140 Potassium 3.6 Chloride 105 Carbon Dioxide 27 Anion Gap 8 BUN 10 Creatinine 1.04 H Est GFR ( Amer) 61.1 Est GFR (Non-Af Amer) 50.5 BUN/Creatinine Ratio 9.6 Glucose 72 Calcium 8.8 Total Bilirubin Direct Bilirubin Indirect Bilirubin AST ALT Alkaline Phosphatase Ammonia 37 Total Protein Albumin Globulin Albumin/Globulin Ratio Urine Color Yellow Urine Appearance Clear Urine pH 7.0 Ur Specific [place] 1.012 Urine Protein Negative Urine Ketones Negative Urine Blood 3+ A Urine Nitrate Negative Urine Bilirubin Negative Urine Urobilinogen Positive A Ur Leukocyte Esterase 1+ A Urine WBC (Auto) 3+(>20/hpf) A Urine RBC (Auto) 3+(>10/hpf) A Urine Bacteria Absent Urine Glucose Negative Microbiology and Other Data: Microbiology 12/01/18 11:34 Blood Venous Aerobic Blood Culture - Preliminary No Growth Day 1 12/01/18 11:34 Blood Venous Anaerobic Blood Culture - Preliminary No Growth Day 1 12/01/18 11:30 Blood Venous Aerobic Blood Culture - Preliminary No Growth Day 1 12/01/18 11:30 Blood Venous Anaerobic Blood Culture - Preliminary No Growth Day 1 11/30/18 18:10 Urine Urine Culture - Final No Growth (<1,000 CFU/mL) 12/01/18 01:00 Nasal Nasal Screen MRSA (PCR) - Final Mrsa Not Detected Assess/Plan/Problems-Billing Assessment: 82 year old female PMH pAfib(on Eliquis), "TIA"(but 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 p/w confusion, tongue bite, urinary incontinence then observed tonic-clonic seizure in ED. s/p keppra load. Mentation and alertness have since waxed and waned. Initially Hyperammonia 100. MRI brain with evidence of 3mm SDH. Now febrile. - Patient Problems (1) Tonic clonic seizures Comment: witnessed by son-in-law who is a veterinary Neurologist at [place], Alex Navarro. s/p keppra 1000mg in ED and then 500mg IV BID. Appreciate Neurology recs. Still is forgetful, but markedly improved since yestarday. [facility] transfer [facility] EEG without clear epileptiform discharges. Ativan 1mg prn q5min for seizure activity Neuro checks q1h.-> q4h No known history of seizures. Does have remote right MCA territory CVA on noncontast CTH. MRI Brain (though severely motion artifact limited) showed 3mm SDH which would lower seizure threshold. Unclear which came first. (2) Hyperammonemia Current Visit: Yes Comment: s/p lactulose per rectum then po. Improved from 100 to 34 then 37. lactulose stopped on 12/02/18, ammonia still WNL INR 1.08 Tbili elevated No other transaminitis. (3) SDH (subdural hematoma) Comment: repeat CTnoncontrast on 12/03 shows no change in 3 mm SDH holding eliquis, last dose 12/02 AM (4) Altered mental status Comment: DDx seizure with possible status, hepatic encephalopathy developed first fever 12/02/18 so UA, CXR and BCx repeated -started on Ceftriaxone for possible aspiration onn 12/02/18, added flagyl 12/03 hold eliquis given small SDH. no leukocytosis (5) Chronic atrial fibrillation Comment: chronic, rate controlled lopressor prn HR sustained >120 for 5 minutes. (6) Bilirubinemia Comment: unconjugated bili up -differential includes Gilbert's or hemolysis, but pt is not developing anemia. Prince Kingsley's (7) Severe mitral regurgitation Comment: and tricuspid regurg on Echo, will dc/ cardiology if consult needed may contribute to passive liver congestion, elevated bili and ammonia Improving (8) DVT prophylaxis Comment: SCD's, anticoagulation stopped due to SDH Status and Disposition: inpatient
--- NOTE | 2018-12-04 12:02 | PN ---
PROGRESS NOTE: DATE OF VISIT: 12/04/18 PATIENT OF: Dr. Waddell. HISTORY: This is an 82-year-old I am seeing in followup for her seizures and mental status. Today, she knew her name, her date of , and she was at the hospital and what the hospital. Then she described that she was in pain in her hand, her knees, and she had a stiff neck. She followed non-midline commands and appeared more alert and conversant than she had when I saw her last, which was on Sunday and there is a significant improvement since over the weekend. Yesterday, she was somewhat lethargic. MEDICATIONS: Include: 1. Tylenol. 2. Lipitor 40 mg a day. 3. Ceftriaxone 1 g 24 hours. 4. Sensipar tab 30 mg daily. 5. Keppra 500 twice a day. 6. Ativan as needed. 7. Magnesium 800 mg daily. 8. Lopressor 25 mg b.i.d. 9. Flagyl 500 mg q.8 hours. 10. Spironolactone 25 mg a day. PHYSICAL EXAMINATION: On exam, temperature 100.6, pulse 88, respirations 21, blood pressure 147/78. She is alert and oriented with normal naming of objects and speaks in sentences and follows non-midline commands. She notes that she is in pain mainly in her right arm and in her knees, although complains of neck stiffness. I did not test her neck for suppleness. She moved all extremities with power and on command. Reflexes were 1. Chest: Clear. Cardiovascular: Regular rate and rhythm. Abdomen is soft. DIAGNOSTIC STUDIES/LAB DATA: Her CT scan from yesterday showed the unchanged subdural. She had an echo yesterday that showed severe atrial dilatation, massive on the left. Right atrium massively dilated. Ejection fraction 55 to 60. Her labs include a creatinine of 1.05 from yesterday, creatinine 0.93 today. Normal BMP. Calcium 8. Magnesium 1.6. Total bili of 2.8 today. Normal AST and ALT. C-reactive protein 44.79. White count 9.6, hematocrit 42, platelets 190. ASSESSMENT AND PLAN: Nirali's mentation is better today than it has been. I would check Keppra levels tomorrow. It is possible that she had a concussion that caused her mentation to more slowly improve than what you would expect even with just several seizures. I do not think given her overall improvement of mental status that she is likely to have meningitis or meningoencephalitis. I would check a CT of her neck and please discuss with near surgeon how long to keep her off the Eliquis given her subdural, she is at significant risk for further stroke. I will be speaking to Dr. Waddell about her case. Thank you for sharing her case. [id number]/CPS #: [id number]
[2018-12-04 13:15] LABS: ABS Lymphocytes 0.5 10^3/ul (1.0-4.8); ABS Neutrophils 8.4 10^3/ul (1.5-7.7); Eosinophil % 0.2 %; Hematocrit 41 % (35-47); Hemoglobin 13.3 g/dL (12.0-16.0); Lymphocyte % 5.4 %; Mean Corpuscular HGB Conc 32 g/dL (31-36); Mean Corpuscular Hemoglobin 26 pg (27-31); Mean Corpuscular Volume 80 fL (80-97); Nucleated Red Blood Cells % 0.2; Red Blood Count 5.16 10^6 /uL (3.70-4.87); Red Cell Distribution Width 19 % (10-15)
[2018-12-04 13:38] LABS: Albumin 3.3 g/dL (3.2-5.2); Albumin/Globulin Ratio 1.3 (1-3); Globulin 2.6 g/dL (2-4); Indirect Bilirubin 1.4 mg/dL (0.3-1.0); Total Bilirubin 1.9 mg/dL (0.2-1.0); Total Protein 5.9 g/dL (6.4-8.9)
[2018-12-04 13:40] LABS: Mean Platelet Volume 7.6 fL (7.4-10.4); Platelet Count 179 10^3/uL (150-450)
[2018-12-04] MEDS: cefTRIAXone(*) 1 GM in NS 0.9% 50 ML* 50 ML IVPB SCH (18:23)
[2018-12-04] MEDS: Atorvastatin* 40 MG TAB PO SCH (18:24)
[2018-12-04 20:34] LABS: TSH (Thyroid Stimulating Horm) 2.58 mcIU/mL (0.34-5.60)
[2018-12-04 20:46] LABS: Folate 15.52 ng/mL (>3.99)
[2018-12-04] MEDS: NS 0.9% 1000 ML** 1,000 ML IV SCH (23:16)
[2018-12-05 06:03] LABS: ABS Lymphocytes 1.1 10^3/ul (1.0-4.8); ABS Monocytes 1.2 10^3/ul (0-0.8); ABS Neutrophils 8.5 10^3/ul (1.5-7.7); Eosinophil % 0.2 %; Hematocrit 38 % (35-47); Hemoglobin 12.4 g/dL (12.0-16.0); Lymphocyte % 10.1 %; Mean Corpuscular HGB Conc 32 g/dL (31-36); Mean Corpuscular Hemoglobin 26 pg (27-31); Mean Corpuscular Volume 80 fL (80-97); Mean Platelet Volume 7.8 fL (7.4-10.4); Platelet Count 180 10^3/uL (150-450); Red Blood Count 4.79 10^6 /uL (3.70-4.87); Red Cell Distribution Width 18 % (10-15); White Blood Count 10.8 10^3/uL (3.5-10.8)
[2018-12-05] MEDS: metroNIDAZOLE IV 500 MG/100ML* 500 MG/100 ML BAG IVPB SCH ×3 (06:06→20:37)
[2018-12-05 06:22] LABS: BUN/Creatinine Ratio 21.9 (8-20); Calcium 8.2 mg/dL (8.6-10.3); EGFR African American 60.4 (>60); EGFR Non-African American 49.9 (>60); Potassium 4.5 mmol/L (3.5-5.0)
[2018-12-05] MEDS: Spironolactone TAB* 25 MG PO SCH (10:55)
[2018-12-05] MEDS: Magnesium Oxide TAB* 400 MG PO SCH (10:56)
[2018-12-05] MEDS: Metoprolol Tartrate TAB* 25 MG PO SCH ×2 (10:56→20:36)
[2018-12-05] MEDS: levETIRAcetam 500 MG IVPREMIX* 500 MG/100 ML BAG IV SCH (10:58)
[2018-12-05] MEDS: Cinacalcet TAB* 30 MG PO SCH (14:39)
--- NOTE | 2018-12-05 15:24 | PN ---
Subjective Date of Service: 12/05/18 Interval History: Pt feels well, C/o pain in RUE. As per d/w RN her IV infiltrated in r arm and since then pt had been refusing to move it. Last night there was a question of R arm weakness due to this and repeat CT brain was obtained. Pt is still a very poor historian today. Every day she tells me that she is 56 years old, but the agrees that she is 82 when corrected. C/o pain when moving R arm and R arm edema Objective Active Medications: Acetaminophen (Tylenol Tab*) 650 mg PO Q8H PRN PRN Reason: FEVER/PAIN Atorvastatin Calcium (Lipitor*) 40 mg PO QPM [facility] Last Admin: 12/04/18 18:24 Dose: 40 mg Cinacalcet (Sensipar Tab*) 30 mg PO DAILY [facility] Last Admin: 12/05/18 14:39 Dose: 30 mg Hydralazine HCl (Apresoline Iv*) 10 mg IV SLOW PU Q2H PRN PRN Reason: alternate with lopressor Last Admin: 12/02/18 12:46 Dose: 10 mg Ceftriaxone Sodium 1 gm/ (Sodium Chloride) 50 mls @ 100 mls/hr IVPB Q24H [facility] Last Admin: 12/04/18 18:23 Dose: 100 mls/hr Sodium Chloride (Ns 0.9% 1000 Ml) 1,000 mls @ 75 mls/hr IV PER RATE [facility] Last Admin: 12/04/18 23:16 Dose: 75 mls/hr Metronidazole/Sodium Chloride (Flagyl 500 Mg Ivpb*) 500 mg in 100 mls @ 100 mls /hr IVPB Q8H [facility] Last Admin: 12/05/18 14:42 Dose: 100 mls/hr Levetiracetam (Keppra Tab*) 500 mg PO BID [facility] Lidocaine (Xylocaine 2% Viscous*) 15 ml SWISH SPIT TID PRN PRN Reason: PAIN - MODERATE Lorazepam (Ativan Inj*) 1 mg IV PUSH Q5M PRN PRN Reason: seizure Last Admin: 12/02/18 09:13 Dose: 1 mg Magnesium Oxide (Magox 400 Tab*) 800 mg PO DAILY [facility] Last Admin: 12/05/18 10:56 Dose: 800 mg Metoprolol Tartrate (Lopressor Tab*) 25 mg PO BID [facility] Last Admin: 12/05/18 10:56 Dose: 25 mg Metoprolol Tartrate (Lopressor Iv*) 5 mg IV Q2H PRN PRN Reason: Systolic Bp Greater Than:160 Miscellaneous (Ativan Pyxis [place]) 1 ea N/A .ATIVAN IV OATES PRN PRN Reason: PYXIS OATES Spironolactone (Aldactone Tab*) 25 mg PO DAILY [facility] Last Admin: 12/05/18 10:55 Dose: 25 mg Vital Signs - 8 hr 12/05/18 12/05/18 07:15 11:15 Temperature 98.3 F 98.1 F Pulse Rate 107 94 Respiratory 18 16 Rate Blood Pressure 135/77 151/82 (mmHg) O2 Sat by Pulse 96 100 Oximetry Oxygen Devices in Use Now: None Appearance: 82 yo F in nAD, AAOx2 Eyes: No Scleral Icterus, PERRLA Ears/Nose/Mouth/Throat: NL Teeth, Lips, Gums, Mucous Membranes Moist Neck: NL Appearance and Movements; NL JVP, Trachea Midline Respiratory: Symmetrical Chest Expansion and Respiratory Effort, Clear to Auscultation Cardiovascular: - - irregular Abdominal: NL Sounds; No Tenderness; No Distention, No Hepatosplenomegaly Lymphatic: No Cervical Adenopathy Extremities: No Clubbing, Cyanosis, - - significant r arm and r hand edema, no slkin lesions, no hematoma Skin: No Nodules or Sclerosis Neurological: - - pt is refusing to move her R arm with full strenght due to pain and edema Result Diagrams: 12/05/18 05:39 12/05/18 05:39 Additional Lab and Data: Laboratory Results - last 24 hr 12/02/18 12/02/18 12/02/18 04:00 04:00 04:00 WBC 7.0 RBC 5.03 H Hgb 12.8 Hct 41 MCV 81 MCH 25 L MCHC 31 RDW 19 H Plt Count 174 MPV 7.6 Neut % (Auto) 79.1 Lymph % (Auto) 11.3 Rhea % (Auto) 7.6 Eos % (Auto) 1.4 Baso % (Auto) 0.6 Absolute Neuts (auto) 5.6 Absolute Lymphs (auto) 0.8 L Absolute Monos (auto) 0.5 Absolute Eos (auto) 0.1 Absolute Basos (auto) 0.0 Absolute Nucleated RBC 0.0 Nucleated RBC % 0.1 Sodium 138 Potassium TNP Chloride 107 Carbon Dioxide 27 Anion Gap 4 BUN 11 Creatinine 1.05 H Est GFR ( Amer) 60.4 Est GFR (Non-Af Amer) 49.9 BUN/Creatinine Ratio 10.5 Glucose 85 Calcium 8.3 L Total Bilirubin 2.00 H Direct Bilirubin TNP Indirect Bilirubin TNP AST TNP ALT 18 Alkaline Phosphatase 62 Ammonia TNP Total Protein 6.0 L Albumin 3.5 Globulin 2.5 Albumin/Globulin Ratio 1.4 Urine Color Urine Appearance Urine pH Ur Specific [place] Urine Protein Urine Ketones Urine Blood Urine Nitrate Urine Bilirubin Urine Urobilinogen Ur Leukocyte Esterase Urine WBC (Auto) Urine RBC (Auto) Urine Bacteria Urine Glucose 12/02/18 12/02/18 12/02/18 05:05 05:05 05:55 WBC RBC Hgb Hct MCV MCH MCHC RDW Plt Count MPV Neut % (Auto) Lymph % (Auto) Rhea % (Auto) Eos % (Auto) Baso % (Auto) Absolute Neuts (auto) Absolute Lymphs (auto) Absolute Monos (auto) Absolute Eos (auto) Absolute Basos (auto) Absolute Nucleated RBC Nucleated RBC % Sodium Potassium TNP TNP Chloride Carbon Dioxide Anion Gap BUN Creatinine Est GFR ( Amer) Est GFR (Non-Af Amer) BUN/Creatinine Ratio Glucose Calcium Total Bilirubin Direct Bilirubin TNP TNP Indirect Bilirubin AST TNP TNP ALT Alkaline Phosphatase Ammonia TNP Total Protein Albumin Globulin Albumin/Globulin Ratio Urine Color Urine Appearance Urine pH Ur Specific [place] Urine Protein Urine Ketones Urine Blood Urine Nitrate Urine Bilirubin Urine Urobilinogen Ur Leukocyte Esterase Urine WBC (Auto) Urine RBC (Auto) Urine Bacteria Urine Glucose 12/02/18 12/02/18 12/02/18 05:55 08:45 17:02 WBC RBC Hgb Hct MCV MCH MCHC RDW Plt Count MPV Neut % (Auto) Lymph % (Auto) Rhea % (Auto) Eos % (Auto) Baso % (Auto) Absolute Neuts (auto) Absolute Lymphs (auto) Absolute Monos (auto) Absolute Eos (auto) Absolute Basos (auto) Absolute Nucleated RBC Nucleated RBC % Sodium 140 Potassium 3.6 Chloride 105 Carbon Dioxide 27 Anion Gap 8 BUN 10 Creatinine 1.04 H Est GFR ( Amer) 61.1 Est GFR (Non-Af Amer) 50.5 BUN/Creatinine Ratio 9.6 Glucose 72 Calcium 8.8 Total Bilirubin Direct Bilirubin Indirect Bilirubin AST ALT Alkaline Phosphatase Ammonia 37 Total Protein Albumin Globulin Albumin/Globulin Ratio Urine Color Yellow Urine Appearance Clear Urine pH 7.0 Ur Specific [place] 1.012 Urine Protein Negative Urine Ketones Negative Urine Blood 3+ A Urine Nitrate Negative Urine Bilirubin Negative Urine Urobilinogen Positive A Ur Leukocyte Esterase 1+ A Urine WBC (Auto) 3+(>20/hpf) A Urine RBC (Auto) 3+(>10/hpf) A Urine Bacteria Absent Urine Glucose Negative Microbiology and Other Data: Microbiology 12/01/18 11:34 Blood Venous Aerobic Blood Culture - Preliminary No Growth Day 1 12/01/18 11:34 Blood Venous Anaerobic Blood Culture - Preliminary No Growth Day 1 12/01/18 11:30 Blood Venous Aerobic Blood Culture - Preliminary No Growth Day 1 12/01/18 11:30 Blood Venous Anaerobic Blood Culture - Preliminary No Growth Day 1 11/30/18 18:10 Urine Urine Culture - Final No Growth (<1,000 CFU/mL) 12/01/18 01:00 Nasal Nasal Screen MRSA (PCR) - Final Mrsa Not Detected Assess/Plan/Problems-Billing Assessment: 82 year old female PMH pAfib(on Eliquis), "TIA"(but 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 p/w confusion, tongue bite, urinary incontinence then observed tonic-clonic seizure in ED. s/p keppra load. Mentation and alertness have since waxed and waned. Initially Hyperammonia 100. MRI brain with evidence of 3mm SDH. - Patient Problems (1) Tonic clonic seizures Comment: witnessed by son-in-law who is a veterinary Neurologist at [employer]. s/p keppra 1000mg in ED and then 500mg IV BID, switched to Keppra PO today Appreciate Neurology recs. Still is forgetful, but markedly improved since ad ission. Pt refuses to move R arm due to pain and edema (secondary to IV infiltration)-doubt it is a new neuro deficit-d/w DR. Hooks. EEG without clear epileptiform discharges. Neuro checks q4h No known history of seizures. Does have remote right MCA territory CVA on noncontast CTH. MRI Brain (though severely motion artifact limited) showed 3mm SDH which would lower seizure threshold. Unclear which came first. (2) Hyperammonemia Current Visit: Yes Comment: s/p lactulose per rectum then po. Improved from 100 to 34 then 37. lactulose stopped on 12/02/18, ammonia still WNL INR 1.08 Tbili elevated No other transaminitis. (3) SDH (subdural hematoma) Comment: repeat CT noncontrast shows no change in 3 mm SDH holding eliquis, last dose 12/02 AM. As per d/w neurosurgery: pt is to be off anticoagulation x 2 weeks, then needs CT brain to document no worsening in SDH. If CT is acceptable, she should be started on Coumadin , or another anticoagulant that is easily reversible. (4) Altered mental status Comment: DDx seizure with possible status, hepatic encephalopathy-mental state improved, still very forgetful and disorientnted to her age-close to baseline hold eliquis given small SDH. no leukocytosis (5) Chronic atrial fibrillation Comment: chronic, rate controlled lopressor prn HR sustained >120 for 5 minutes. (6) Bilirubinemia Comment: unconjugated bili up -differential includes Gilbert's or hemolysis, but pt is not developing anemia. Cullenbull Sancho's (7) Severe mitral regurgitation Comment: and tricuspid regurg on Echo, d/w cardiology -OK tpo f/u as outpatient , pt is euvolemic. MR may contribute to passive liver congestion, elevated bili and ammonia (8) Hand edema Comment: Pt's IV infiltated and IV access was discontinued on R side (9) Spinal stenosis in cervical region Comment: CT c spine shows severe stenosis of C4-C5, chronic Once pt is improved in STR she should be evaluated by neurosurgery if she is a surgical candidate (10) Bacteriuria Comment: U cx, grew 75 000 colonies E. coli, pt was asymptomatic, but due to AMS not a good historian. Nevertheless on Ceftrixone which would treat possible UTI (11) Fever Comment: developed first fever 12/02/18 so UA, CXR and BCx repeated -started on Ceftriaxone for possible aspiration on 12/02/18, added flagyl 12/03 Plan to cont antibiotics x 7 days (12) DVT prophylaxis Comment: SCD's, anticoagulation stopped due to SDH Status and Disposition: inpatient, awaiting STR
[2018-12-05] MEDS: Atorvastatin* 40 MG TAB PO SCH (18:46)
[2018-12-05] MEDS: cefTRIAXone(*) 1 GM in NS 0.9% 50 ML* 50 ML IVPB SCH (18:46)
[2018-12-05] MEDS: levETIRAcetam TAB* 500 MG PO SCH (20:36)
[2018-12-05] MEDS: NS 0.9% 1000 ML** 1,000 ML IV SCH (21:44)
[2018-12-06] MEDS: metroNIDAZOLE IV 500 MG/100ML* 500 MG/100 ML BAG IVPB SCH ×3 (05:33→23:00)
[2018-12-06 06:21] LABS: ABS Eosinophils 0.1 10^3/ul (0-0.6); ABS Lymphocytes 0.9 10^3/ul (1.0-4.8); ABS Monocytes 0.9 10^3/ul (0-0.8); ABS Neutrophils 6.8 10^3/ul (1.5-7.7); Eosinophil % 0.9 %; Hematocrit 36 % (35-47); Hemoglobin 11.4 g/dL (12.0-16.0); Lymphocyte % 10.6 %; Mean Corpuscular HGB Conc 32 g/dL (31-36); Mean Corpuscular Hemoglobin 26 pg (27-31); Mean Corpuscular Volume 80 fL (80-97); Platelet Count 175 10^3/uL (150-450); Red Blood Count 4.47 10^6 /uL (3.70-4.87); Red Cell Distribution Width 18 % (10-15); White Blood Count 8.8 10^3/uL (3.5-10.8)
[2018-12-06 06:36] LABS: BUN/Creatinine Ratio 22.8 (8-20); Calcium 8.3 mg/dL (8.6-10.3); EGFR Non-African American 52.1 (>60); Potassium 4.4 mmol/L (3.5-5.0)
--- NOTE | 2018-12-06 07:58 | PN ---
Subjective Date of Service: 12/06/18 Interval History: HOSPITALIST PROGRESS NOTE Patient seen and examined at bedside. Care reviewed and d/w Bessy Mcgowan RN. She still c/o right arm pain. Knows she's in the hospital, but doesn't know why. States she has something on her tongue and did not understand when I explained she bit her tongue when she had a seizure and what's she's feeling is the tongue bite piece. Family History: Unchanged from Admission Social History: Unchanged from Admission Past Medical History: Unchanged from Admission Objective Active Medications: Acetaminophen (Tylenol Tab*) 650 mg PO Q8H PRN PRN Reason: FEVER/PAIN Last Admin: 12/05/18 20:36 Dose: 650 mg Atorvastatin Calcium (Lipitor*) 40 mg PO QPM [facility] Last Admin: 12/05/18 18:46 Dose: 40 mg Cinacalcet (Sensipar Tab*) 30 mg PO DAILY [facility] Last Admin: 12/05/18 14:39 Dose: 30 mg Hydralazine HCl (Apresoline Iv*) 10 mg IV SLOW PU Q2H PRN PRN Reason: alternate with lopressor Last Admin: 12/02/18 12:46 Dose: 10 mg Ceftriaxone Sodium 1 gm/ (Sodium Chloride) 50 mls @ 100 mls/hr IVPB Q24H [facility] Last Admin: 12/05/18 18:46 Dose: 100 mls/hr Sodium Chloride (Ns 0.9% 1000 Ml) 1,000 mls @ 75 mls/hr IV PER RATE [facility] Last Admin: 12/05/18 21:44 Dose: 75 mls/hr Metronidazole/Sodium Chloride (Flagyl 500 Mg Ivpb*) 500 mg in 100 mls @ 100 mls /hr IVPB Q8H [facility] Last Admin: 12/06/18 05:33 Dose: 100 mls/hr Levetiracetam (Keppra Tab*) 500 mg PO BID [facility] Last Admin: 12/05/18 20:36 Dose: 500 mg Lidocaine (Xylocaine 2% Viscous*) 15 ml SWISH SPIT TID PRN PRN Reason: PAIN - MODERATE Lorazepam (Ativan Inj*) 1 mg IV PUSH Q5M PRN PRN Reason: seizure Last Admin: 12/02/18 09:13 Dose: 1 mg Magnesium Oxide (Magox 400 Tab*) 800 mg PO DAILY [facility] Last Admin: 12/05/18 10:56 Dose: 800 mg Metoprolol Tartrate (Lopressor Tab*) 25 mg PO BID [facility] Last Admin: 12/05/18 20:36 Dose: 25 mg Metoprolol Tartrate (Lopressor Iv*) 5 mg IV Q2H PRN PRN Reason: Systolic Bp Greater Than:160 Miscellaneous (Ativan Pyxis House) 1 ea N/A .ATIVAN IV HOUSE PRN PRN Reason: PYXIS HOUSE Spironolactone (Aldactone Tab*) 25 mg PO DAILY [facility] Last Admin: 12/05/18 10:55 Dose: 25 mg Vital Signs - 8 hr 12/06/18 12/06/18 03:22 07:15 Temperature 97.5 F 98 F Pulse Rate 99 103 Respiratory 18 19 Rate Blood Pressure 144/79 148/83 (mmHg) O2 Sat by Pulse 97 97 Oximetry Oxygen Devices in Use Now: None Appearance: Elderly lady sitting up in bed in [facility]. Eyes: No Scleral Icterus Ears/Nose/Mouth/Throat: Mucous Membranes Moist, - - Tongue bite Neck: Trachea Midline Respiratory: Symmetrical Chest Expansion and Respiratory Effort, Clear to Auscultation Cardiovascular: - - Normal S1 and S2, irregularly irregular Abdominal: NL Sounds; No Tenderness; No Distention Extremities: - - Significant right arm edema Neurological: - - AAOx2 (self and place), MCMAHON, but needs encouraging to move her RUE Result Diagrams: 12/06/18 05:48 12/06/18 05:48 Assess/Plan/Problems-Billing Assessment: Mrs Rin Farah is an 82 year old F with PMH of pAfib(on Eliquis), "TIA"(but old right MCA infarct on CT here), hyperparathyroidism c/b hypercalcemia s/p resection June 2018, severe TVR, moderate MVR, HTN, CAD(no stents), thrombocytopenia; p/w confusion, tongue bite, urinary incontinence then observed tonic-clonic seizure in ED. s/p keppra load. Mentation and alertness have since waxed and waned. Initially Hyperammonia 100. MRI brain with evidence of 3mm SDH. - Patient Problems (1) Hand edema Comment: - Pt's IV infiltated and IV access was discontinued on R side. As she has persistent symptoms, will check RUE doppler. (2) Tonic clonic seizures Comment: - Witnessed by son-in-law who is a veterinary Neurologist at [place], [place]. - s/p Keppra 1000mg in ED and then 500mg IV BID, switched to Keppra PO . - EEG without clear epileptiform discharges. - Continue Neuro checks q4h. - No known history of seizures. Does have remote right MCA territory CVA on noncontast CT brain and MRI Brain (though severely motion artifact limited) showed 3mm SDH which could explain lower seizure threshold. Unclear which came first. - Seizure precautions. - Repeat CT 12/05/18 with no new changes. (3) Hyperammonemia Comment: - s/p lactulose per rectum then po. 100 on admission, but down to 34 the next day. Unclear mechanism. - Lactulose stopped on 12/02/18, ammonia still WNL. 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 (4) SDH (subdural hematoma) Comment: - Eliquis on hold, last dose 10 AM. As per d/w neurosurgery: pt is to be off anticoagulation x 2 weeks, then needs CT brain to document SDH is not worsening. If CT is acceptable, she should be started on Coumadin, or another anticoagulant that is easily reversible. (5) Chronic atrial fibrillation Comment: - cChronic, rate controlled on Metoprolol tartrate 25mg PO BID. (6) Severe mitral regurgitation Comment: - Severe MR and TR on Echo. Dr Waddell d/w Cardiology - to f/u as outpatient. - MR may contribute to passive liver congestion, elevated bili and ammonia. (7) Fever Comment: - Developed first fever 12/02/18 so UA, CXR and BCx repeated - started on Ceftriaxone for possible aspiration on 12/02/18, added Flagyl 12/03. Plan to cont antibiotics x 7 days. - Blood cultures show no growth so far and Urine culture grew 75 000 colonies E. coli, with abnormal UA. Patient was asymptomatic, but due to AMS not a good historian. Ceftrixone will cover possible UTI. (8) Spinal stenosis in cervical region Current Visit: Yes Status: Acute Code(s): M48.02 - SPINAL STENOSIS, CERVICAL REGION SNOMED Code(s): 33546895 Comment: CT c spine shows severe stenosis of C4-C5, chronic Once pt is improved in STR she should be evaluated by neurosurgery if she is a surgical candidate (9) DVT prophylaxis Comment: - Pharmacological prophylaxis contraindicated in the setting of SDH. - SCDs. (10) Full code status Status and Disposition: Inpatient. Continue abx and medication titration. Anticipate d/c to [facility] early next week.
[2018-12-06] MEDS: Spironolactone TAB* 25 MG PO SCH (10:17)
[2018-12-06] MEDS: levETIRAcetam TAB* 500 MG PO SCH ×2 (10:18→20:27)
[2018-12-06] MEDS: Metoprolol Tartrate TAB* 25 MG PO SCH ×2 (10:18→20:27)
[2018-12-06] MEDS: Magnesium Oxide TAB* 400 MG PO SCH (10:18)
[2018-12-06] MEDS: Cinacalcet TAB* 30 MG PO SCH (10:18)
[2018-12-06] MEDS: NS 0.9% 1000 ML** 1,000 ML IV SCH (12:59)
[2018-12-06] MEDS: cefTRIAXone(*) 1 GM in NS 0.9% 50 ML* 50 ML IVPB SCH (18:04)
[2018-12-06] MEDS: Atorvastatin* 40 MG TAB PO SCH (18:09)
[2018-12-07] MEDS: metroNIDAZOLE IV 500 MG/100ML* 500 MG/100 ML BAG IVPB SCH ×3 (05:05→22:18)
[2018-12-07] MEDS: levETIRAcetam TAB* 500 MG PO SCH ×2 (09:02→21:14)
[2018-12-07] MEDS: Magnesium Oxide TAB* 400 MG PO SCH (09:02)
[2018-12-07] MEDS: Cinacalcet TAB* 30 MG PO SCH (09:03)
[2018-12-07] MEDS: Spironolactone TAB* 25 MG PO SCH (09:03)
[2018-12-07] MEDS: Metoprolol Tartrate TAB* 25 MG PO SCH ×2 (09:03→21:14)
--- NOTE | 2018-12-07 13:43 | PN ---
Subjective Date of Service: 12/07/18 Interval History: Denies any complaints.No pain..No further seizures Family History: Unchanged from Admission Social History: Unchanged from Admission Past Medical History: Unchanged from Admission Objective Active Medications: Acetaminophen (Tylenol Tab*) 650 mg PO Q8H PRN PRN Reason: FEVER/PAIN Last Admin: 12/05/18 20:36 Dose: 650 mg Atorvastatin Calcium (Lipitor*) 40 mg PO QPM [facility] Last Admin: 12/06/18 18:09 Dose: 40 mg Cinacalcet (Sensipar Tab*) 30 mg PO DAILY [facility] Last Admin: 12/07/18 09:03 Dose: 30 mg Hydralazine HCl (Apresoline Iv*) 10 mg IV SLOW PU Q2H PRN PRN Reason: alternate with lopressor Last Admin: 12/02/18 12:46 Dose: 10 mg Ceftriaxone Sodium 1 gm/ (Sodium Chloride) 50 mls @ 100 mls/hr IVPB Q24H [facility] Last Admin: 12/06/18 18:04 Dose: 100 mls/hr Metronidazole/Sodium Chloride (Flagyl 500 Mg Ivpb*) 500 mg in 100 mls @ 100 mls /hr IVPB Q8H [facility] Last Admin: 12/07/18 05:05 Dose: 100 mls/hr Levetiracetam (Keppra Tab*) 500 mg PO BID [facility] Last Admin: 12/07/18 09:02 Dose: 500 mg Lidocaine (Xylocaine 2% Viscous*) 15 ml SWISH SPIT TID PRN PRN Reason: PAIN - MODERATE Lorazepam (Ativan Inj*) 1 mg IV PUSH Q5M PRN PRN Reason: seizure Last Admin: 12/02/18 09:13 Dose: 1 mg Magnesium Oxide (Magox 400 Tab*) 800 mg PO DAILY [facility] Last Admin: 12/07/18 09:02 Dose: 800 mg Metoprolol Tartrate (Lopressor Tab*) 25 mg PO BID [facility] Last Admin: 12/07/18 09:03 Dose: 25 mg Metoprolol Tartrate (Lopressor Iv*) 5 mg IV Q2H PRN PRN Reason: Systolic Bp Greater Than:160 Miscellaneous (Ativan Pyxis House) 1 ea N/A .ATIVAN IV HOUSE PRN PRN Reason: PYXIS HOUSE Spironolactone (Aldactone Tab*) 25 mg PO DAILY [facility] Last Admin: 12/07/18 09:03 Dose: 25 mg Vital Signs - 8 hr 12/07/18 12/07/18 12/07/18 07:15 08:00 09:07 Temperature 98.3 F Pulse Rate 102 76 Respiratory 18 16 Rate Blood Pressure 141/79 (mmHg) O2 Sat by Pulse 98 Oximetry 12/07/18 11:15 Temperature 98.3 F Pulse Rate 88 Respiratory 18 Rate Blood Pressure 135/81 (mmHg) O2 Sat by Pulse 96 Oximetry Oxygen Devices in Use Now: None Eyes: No Scleral Icterus Ears/Nose/Mouth/Throat: NL Teeth, Lips, Gums Neck: NL Appearance and Movements; NL JVP Respiratory: Symmetrical Chest Expansion and Respiratory Effort Cardiovascular: NL Sounds; No Murmurs; No JVD Abdominal: NL Sounds; No Tenderness; No Distention Extremities: - - edema present Neurological: Alert and Oriented x 3 Result Diagrams: 12/06/18 05:48 12/06/18 05:48 Additional Lab and Data: Laboratory Results - last 24 hr 12/02/18 12/02/18 12/02/18 04:00 04:00 04:00 WBC 7.0 RBC 5.03 H Hgb 12.8 Hct 41 MCV 81 MCH 25 L MCHC 31 RDW 19 H Plt Count 174 MPV 7.6 Neut % (Auto) 79.1 Lymph % (Auto) 11.3 [place] % (Auto) 7.6 Eos % (Auto) 1.4 Baso % (Auto) 0.6 Absolute Neuts (auto) 5.6 Absolute Lymphs (auto) 0.8 L Absolute Monos (auto) 0.5 Absolute Eos (auto) 0.1 Absolute Basos (auto) 0.0 Absolute Nucleated RBC 0.0 Nucleated RBC % 0.1 Sodium 138 Potassium TNP Chloride 107 Carbon Dioxide 27 Anion Gap 4 BUN 11 Creatinine 1.05 H Est GFR ( Amer) 60.4 Est GFR (Non-Af Amer) 49.9 BUN/Creatinine Ratio 10.5 Glucose 85 Calcium 8.3 L Total Bilirubin 2.00 H Direct Bilirubin TNP Indirect Bilirubin TNP AST TNP ALT 18 Alkaline Phosphatase 62 Ammonia TNP Total Protein 6.0 L Albumin 3.5 Globulin 2.5 Albumin/Globulin Ratio 1.4 Urine Color Urine Appearance Urine pH Ur Specific [place] Urine Protein Urine Ketones Urine Blood Urine Nitrate Urine Bilirubin Urine Urobilinogen Ur Leukocyte Esterase Urine WBC (Auto) Urine RBC (Auto) Urine Bacteria Urine Glucose 12/02/18 12/02/18 12/02/18 05:05 05:05 05:55 WBC RBC Hgb Hct MCV MCH MCHC RDW Plt Count MPV Neut % (Auto) Lymph % (Auto) [place] % (Auto) Eos % (Auto) Baso % (Auto) Absolute Neuts (auto) Absolute Lymphs (auto) Absolute Monos (auto) Absolute Eos (auto) Absolute Basos (auto) Absolute Nucleated RBC Nucleated RBC % Sodium Potassium TNP TNP Chloride Carbon Dioxide Anion Gap BUN Creatinine Est GFR ( Amer) Est GFR (Non-Af Amer) BUN/Creatinine Ratio Glucose Calcium Total Bilirubin Direct Bilirubin TNP TNP Indirect Bilirubin AST TNP TNP ALT Alkaline Phosphatase Ammonia TNP Total Protein Albumin Globulin Albumin/Globulin Ratio Urine Color Urine Appearance Urine pH Ur Specific [place] Urine Protein Urine Ketones Urine Blood Urine Nitrate Urine Bilirubin Urine Urobilinogen Ur Leukocyte Esterase Urine WBC (Auto) Urine RBC (Auto) Urine Bacteria Urine Glucose 12/02/18 12/02/18 12/02/18 05:55 08:45 17:02 WBC RBC Hgb Hct MCV MCH MCHC RDW Plt Count MPV Neut % (Auto) Lymph % (Auto) [place] % (Auto) Eos % (Auto) Baso % (Auto) Absolute Neuts (auto) Absolute Lymphs (auto) Absolute Monos (auto) Absolute Eos (auto) Absolute Basos (auto) Absolute Nucleated RBC Nucleated RBC % Sodium 140 Potassium 3.6 Chloride 105 Carbon Dioxide 27 Anion Gap 8 BUN 10 Creatinine 1.04 H Est GFR ( Amer) 61.1 Est GFR (Non-Af Amer) 50.5 BUN/Creatinine Ratio 9.6 Glucose 72 Calcium 8.8 Total Bilirubin Direct Bilirubin Indirect Bilirubin AST ALT Alkaline Phosphatase Ammonia 37 Total Protein Albumin Globulin Albumin/Globulin Ratio Urine Color Yellow Urine Appearance Clear Urine pH 7.0 Ur Specific [place] 1.012 Urine Protein Negative Urine Ketones Negative Urine Blood 3+ A Urine Nitrate Negative Urine Bilirubin Negative Urine Urobilinogen Positive A Ur Leukocyte Esterase 1+ A Urine WBC (Auto) 3+(>20/hpf) A Urine RBC (Auto) 3+(>10/hpf) A Urine Bacteria Absent Urine Glucose Negative Microbiology and Other Data: Microbiology 12/01/18 11:34 Blood Venous Aerobic Blood Culture - Preliminary No Growth Day 1 12/01/18 11:34 Blood Venous Anaerobic Blood Culture - Preliminary No Growth Day 1 12/01/18 11:30 Blood Venous Aerobic Blood Culture - Preliminary No Growth Day 1 12/01/18 11:30 Blood Venous Anaerobic Blood Culture - Preliminary No Growth Day 1 11/30/18 18:10 Urine Urine Culture - Final No Growth (<1,000 CFU/mL) 12/01/18 01:00 Nasal Nasal Screen MRSA (PCR) - Final Mrsa Not Detected Assess/Plan/Problems-Billing Assessment: Mrs Rin Farah is an 82 year old F with PMH of pAfib(on Eliquis), "TIA"(but old right MCA infarct on CT here), hyperparathyroidism c/b hypercalcemia s/p resection June 2018, severe TVR, moderate MVR, HTN, CAD(no stents), thrombocytopenia; p/w confusion, tongue bite, urinary incontinence then observed tonic-clonic seizure in ED. s/p keppra load. Mentation and alertness have since waxed and waned. Initially Hyperammonia 100. MRI brain with evidence of 3mm SDH. - Patient Problems (1) Tonic clonic seizures Current Visit: Yes Status: Acute Code(s): G40.409 - OTH GENERALIZED EPILEPSY , NOT INTRACTABLE, W/O STAT EPI SNOMED Code(s): 784210338 Comment: - Witnessed by son-in-law who is a veterinary Neurologist at [employer]. - s/p Keppra 1000mg in ED and then 500mg IV BID, switched to Keppra PO . - EEG without clear epileptiform discharges. - Continue Neuro checks q4h. - No known history of seizures. Does have remote right MCA territory CVA on noncontast CT brain and MRI Brain (though severely motion artifact limited) showed 3mm SDH which could explain lower seizure threshold. Unclear which came first. - Seizure precautions. - Repeat CT 12/05/18 with no new changes. (2) Fever Current Visit: Yes Status: Acute Code(s): R50.9 - FEVER, UNSPECIFIED SNOMED Code(s): 007267904 Comment: - Developed first fever 12/02/18 so UA, CXR and BCx repeated - started on Ceftriaxone for possible aspiration on 12/02/18, added Flagyl 12/03. Plan to cont antibiotics x 7 days. - Blood cultures show no growth so far and Urine culture grew 75 000 colonies E. coli, with abnormal UA. Patient was asymptomatic, but due to AMS not a good historian. Ceftrixone will cover possible UTI. (3) Chronic atrial fibrillation Current Visit: Yes Status: Acute Code(s): I48.2 - CHRONIC ATRIAL FIBRILLATION * DO NOT USE * SNOMED Code(s): 885833560 Comment: - cChronic, rate controlled on Metoprolol tartrate 25mg PO BID. (4) Bilirubinemia Current Visit: Yes Status: Acute Code(s): E80.6 - OTHER DISORDERS OF BILIRUBIN METABOLISM SNOMED Code(s): 98131459 Comment: unconjugated bili up -differential includes Gilbert's or hemolysis , but pt is not developing anemia. Prince Kingsley's (5) Hand edema Current Visit: Yes Status: Acute Code(s): R60.0 - LOCALIZED EDEMA SNOMED Code(s): 864374142 Comment: - Pt's IV infiltated and IV access was discontinued on R side. As she has persistent symptoms, will check RUE doppler. (6) Hyperammonemia Current Visit: Yes Status: Acute Code(s): E72.20 - DISORDER OF UREA CYCLE METABOLISM, UNSPECIFIED SNOMED Code(s): 2188895 Comment: - s/p lactulose per rectum then po. 100 on admission, but down to 34 the next day. Unclear mechanism. - Lactulose stopped on 12/02/18, ammonia still WNL. 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 -Poss urea cycle disorder that surfaces in stress -will add Zinc (7) SDH (subdural hematoma) Current Visit: Yes Status: Acute Code(s): S06.5X9A - TRAUM SUBDR HEM W LOC OF UNSP DURATION, INIT SNOMED Code(s): 521187527 Comment: - Eliquis on hold, last dose 10/7 AM. As per d/w neurosurgery: pt is to be off anticoagulation x 2 weeks, then needs CT brain to document SDH is not worsening. If CT is acceptable, she should be started on Coumadin, or another anticoagulant that is easily reversible. (8) Severe mitral regurgitation Current Visit: Yes Status: Acute Code(s): I34.0 - NONRHEUMATIC MITRAL (VALVE ) INSUFFICIENCY SNOMED Code(s): 72935397 Comment: - Severe MR and TR on Echo. Dr Waddell d/w Cardiology - to f/u as outpatient. - MR may contribute to passive liver congestion, elevated bili and ammonia. (9) Spinal stenosis in cervical region Current Visit: Yes Status: Acute Code(s): M48.02 - SPINAL STENOSIS, CERVICAL REGION SNOMED Code(s): 45177481 Comment: CT c spine shows severe stenosis of C4-C5, chronic Once pt is improved in STR she should be evaluated by neurosurgery if she is a surgical candidate (10) DVT prophylaxis Current Visit: Yes Status: Acute Code(s): Z29.9 - ENCOUNTER FOR PROPHYLACTIC MEASURES, UNSPECIFIED SNOMED Code(s): 089278350 Comment: - Pharmacological prophylaxis contraindicated in the setting of SDH. - SCDs. Status and Disposition: Inpatient. Continue abx and medication titration. Anticipate d/c to [facility] early next week.
[2018-12-07] MEDS ORDERED: Calcium Gluconate INJ* 1 GM in NS 0.9% 50 ML* 50 ML IVPB ONE (15:00)
[2018-12-07] MEDS: Zinc Sulfate CAP* 220 MG PO SCH (15:34)
[2018-12-07] MEDS: Atorvastatin* 40 MG TAB PO SCH (17:20)
[2018-12-07] MEDS: cefTRIAXone(*) 1 GM in NS 0.9% 50 ML* 50 ML IVPB SCH (17:20)
[2018-12-08] MEDS: metroNIDAZOLE IV 500 MG/100ML* 500 MG/100 ML BAG IVPB SCH ×3 (05:45→22:19)
[2018-12-08 06:58] LABS: ABS Basophils 0.1 10^3/ul (0-0.2); ABS Eosinophils 0.2 10^3/ul (0-0.6); ABS Lymphocytes 1.1 10^3/ul (1.0-4.8); ABS Monocytes 0.8 10^3/ul (0-0.8); ABS Neutrophils 5.5 10^3/ul (1.5-7.7); Eosinophil % 2.9 %; Hematocrit 36 % (35-47); Hemoglobin 11.5 g/dL (12.0-16.0); Lymphocyte % 14.7 %; Mean Corpuscular HGB Conc 32 g/dL (31-36); Mean Corpuscular Hemoglobin 26 pg (27-31); Mean Corpuscular Volume 79 fL (80-97); Mean Platelet Volume 7.4 fL (7.4-10.4); Platelet Count 216 10^3/uL (150-450); Red Blood Count 4.48 10^6 /uL (3.70-4.87); Red Cell Distribution Width 18 % (10-15); White Blood Count 7.7 10^3/uL (3.5-10.8)
[2018-12-08 07:20] LABS: BUN/Creatinine Ratio 21.2 (8-20); Calcium 8.4 mg/dL (8.6-10.3); EGFR African American 64.5 (>60); EGFR Non-African American 53.3 (>60); Potassium 4.4 mmol/L (3.5-5.0)
[2018-12-08] MEDS: Zinc Sulfate CAP* 220 MG PO SCH (09:05)
[2018-12-08] MEDS: Metoprolol Tartrate TAB* 25 MG PO SCH ×2 (09:05→20:32)
[2018-12-08] MEDS: Magnesium Oxide TAB* 400 MG PO SCH (09:05)
[2018-12-08] MEDS: levETIRAcetam TAB* 500 MG PO SCH ×2 (09:05→20:33)
[2018-12-08] MEDS: Cinacalcet TAB* 30 MG PO SCH (09:05)
[2018-12-08] MEDS: Spironolactone TAB* 25 MG PO SCH (09:05)
[2018-12-08] MEDS ORDERED: Lorazepam PYXIS KEY PRN (13:03)
[2018-12-08] MEDS ORDERED: LORazepam INJ* 2 MG/ML 1 ML VIAL IV PUSH PRN (13:20)
--- NOTE | 2018-12-08 14:15 | PN ---
Subjective Date of Service: 12/08/18 Interval History: Reports improvement in weakness.Denies any complaints Family History: Unchanged from Admission Social History: Unchanged from Admission Past Medical History: Unchanged from Admission Objective Active Medications: Acetaminophen (Tylenol Tab*) 650 mg PO Q8H PRN PRN Reason: FEVER/PAIN Last Admin: 12/05/18 20:36 Dose: 650 mg Atorvastatin Calcium (Lipitor*) 40 mg PO QPM [facility] Last Admin: 12/07/18 17:20 Dose: 40 mg Cinacalcet (Sensipar Tab*) 30 mg PO DAILY [facility] Last Admin: 12/08/18 09:05 Dose: 30 mg Hydralazine HCl (Apresoline Iv*) 10 mg IV SLOW PU Q2H PRN PRN Reason: alternate with lopressor Last Admin: 12/02/18 12:46 Dose: 10 mg Ceftriaxone Sodium 1 gm/ (Sodium Chloride) 50 mls @ 100 mls/hr IVPB Q24H [facility] Last Admin: 12/07/18 17:20 Dose: 100 mls/hr Metronidazole/Sodium Chloride (Flagyl 500 Mg Ivpb*) 500 mg in 100 mls @ 100 mls /hr IVPB Q8H [facility] Last Admin: 12/08/18 05:45 Dose: 100 mls/hr Levetiracetam (Keppra Tab*) 500 mg PO BID [facility] Last Admin: 12/08/18 09:05 Dose: 500 mg Lidocaine (Xylocaine 2% Viscous*) 15 ml SWISH SPIT TID PRN PRN Reason: PAIN - MODERATE Last Admin: 12/08/18 10:10 Dose: 15 ml Lorazepam (Ativan Inj*) 1 mg IV PUSH Q5M PRN PRN Reason: seizure Magnesium Oxide (Magox 400 Tab*) 800 mg PO DAILY [facility] Last Admin: 12/08/18 09:05 Dose: 800 mg Metoprolol Tartrate (Lopressor Tab*) 25 mg PO BID [facility] Last Admin: 12/08/18 09:05 Dose: 25 mg Metoprolol Tartrate (Lopressor Iv*) 5 mg IV Q2H PRN PRN Reason: Systolic Bp Greater Than:160 Miscellaneous (Ativan Pyxis House) 1 ea N/A .ATIVAN IV HOUSE PRN PRN Reason: SEIZURES Spironolactone (Aldactone Tab*) 25 mg PO DAILY [facility] Last Admin: 12/08/18 09:05 Dose: 25 mg Zinc Sulfate (Zinc-220 Cap*) 220 mg PO DAILY [facility] Last Admin: 12/08/18 09:05 Dose: 220 mg Vital Signs - 8 hr 12/08/18 12/08/18 12/08/18 07:15 08:00 11:15 Temperature 98.6 F 98.1 F Pulse Rate 101 86 Respiratory 18 16 16 Rate Blood Pressure 141/80 143/64 (mmHg) O2 Sat by Pulse 95 96 Oximetry Oxygen Devices in Use Now: None Eyes: No Scleral Icterus Ears/Nose/Mouth/Throat: NL Teeth, Lips, Gums Neck: NL Appearance and Movements; NL JVP Respiratory: Symmetrical Chest Expansion and Respiratory Effort, Clear to Auscultation Cardiovascular: NL Sounds; No Murmurs; No JVD Abdominal: NL Sounds; No Tenderness; No Distention Extremities: No Edema Neurological: Alert and Oriented x 3 Result Diagrams: 12/08/18 06:46 12/08/18 06:46 Additional Lab and Data: Laboratory Results - last 24 hr 12/02/18 12/02/18 12/02/18 04:00 04:00 04:00 WBC 7.0 RBC 5.03 H Hgb 12.8 Hct 41 MCV 81 MCH 25 L MCHC 31 RDW 19 H Plt Count 174 MPV 7.6 Neut % (Auto) 79.1 Lymph % (Auto) 11.3 [place] % (Auto) 7.6 Eos % (Auto) 1.4 Baso % (Auto) 0.6 Absolute Neuts (auto) 5.6 Absolute Lymphs (auto) 0.8 L Absolute Monos (auto) 0.5 Absolute Eos (auto) 0.1 Absolute Basos (auto) 0.0 Absolute Nucleated RBC 0.0 Nucleated RBC % 0.1 Sodium 138 Potassium TNP Chloride 107 Carbon Dioxide 27 Anion Gap 4 BUN 11 Creatinine 1.05 H Est GFR ( Amer) 60.4 Est GFR (Non-Af Amer) 49.9 BUN/Creatinine Ratio 10.5 Glucose 85 Calcium 8.3 L Total Bilirubin 2.00 H Direct Bilirubin TNP Indirect Bilirubin TNP AST TNP ALT 18 Alkaline Phosphatase 62 Ammonia TNP Total Protein 6.0 L Albumin 3.5 Globulin 2.5 Albumin/Globulin Ratio 1.4 Urine Color Urine Appearance Urine pH Ur Specific [place] Urine Protein Urine Ketones Urine Blood Urine Nitrate Urine Bilirubin Urine Urobilinogen Ur Leukocyte Esterase Urine WBC (Auto) Urine RBC (Auto) Urine Bacteria Urine Glucose 12/02/18 12/02/18 12/02/18 05:05 05:05 05:55 WBC RBC Hgb Hct MCV MCH MCHC RDW Plt Count MPV Neut % (Auto) Lymph % (Auto) [place] % (Auto) Eos % (Auto) Baso % (Auto) Absolute Neuts (auto) Absolute Lymphs (auto) Absolute Monos (auto) Absolute Eos (auto) Absolute Basos (auto) Absolute Nucleated RBC Nucleated RBC % Sodium Potassium TNP TNP Chloride Carbon Dioxide Anion Gap BUN Creatinine Est GFR ( Amer) Est GFR (Non-Af Amer) BUN/Creatinine Ratio Glucose Calcium Total Bilirubin Direct Bilirubin TNP TNP Indirect Bilirubin AST TNP TNP ALT Alkaline Phosphatase Ammonia TNP Total Protein Albumin Globulin Albumin/Globulin Ratio Urine Color Urine Appearance Urine pH Ur Specific [place] Urine Protein Urine Ketones Urine Blood Urine Nitrate Urine Bilirubin Urine Urobilinogen Ur Leukocyte Esterase Urine WBC (Auto) Urine RBC (Auto) Urine Bacteria Urine Glucose 12/02/18 12/02/18 12/02/18 05:55 08:45 17:02 WBC RBC Hgb Hct MCV MCH MCHC RDW Plt Count MPV Neut % (Auto) Lymph % (Auto) [place] % (Auto) Eos % (Auto) Baso % (Auto) Absolute Neuts (auto) Absolute Lymphs (auto) Absolute Monos (auto) Absolute Eos (auto) Absolute Basos (auto) Absolute Nucleated RBC Nucleated RBC % Sodium 140 Potassium 3.6 Chloride 105 Carbon Dioxide 27 Anion Gap 8 BUN 10 Creatinine 1.04 H Est GFR ( Amer) 61.1 Est GFR (Non-Af Amer) 50.5 BUN/Creatinine Ratio 9.6 Glucose 72 Calcium 8.8 Total Bilirubin Direct Bilirubin Indirect Bilirubin AST ALT Alkaline Phosphatase Ammonia 37 Total Protein Albumin Globulin Albumin/Globulin Ratio Urine Color Yellow Urine Appearance Clear Urine pH 7.0 Ur Specific [place] 1.012 Urine Protein Negative Urine Ketones Negative Urine Blood 3+ A Urine Nitrate Negative Urine Bilirubin Negative Urine Urobilinogen Positive A Ur Leukocyte Esterase 1+ A Urine WBC (Auto) 3+(>20/hpf) A Urine RBC (Auto) 3+(>10/hpf) A Urine Bacteria Absent Urine Glucose Negative Microbiology and Other Data: Microbiology 12/01/18 11:34 Blood Venous Aerobic Blood Culture - Preliminary No Growth Day 1 12/01/18 11:34 Blood Venous Anaerobic Blood Culture - Preliminary No Growth Day 1 12/01/18 11:30 Blood Venous Aerobic Blood Culture - Preliminary No Growth Day 1 12/01/18 11:30 Blood Venous Anaerobic Blood Culture - Preliminary No Growth Day 1 11/30/18 18:10 Urine Urine Culture - Final No Growth (<1,000 CFU/mL) 12/01/18 01:00 Nasal Nasal Screen MRSA (PCR) - Final Mrsa Not Detected Assess/Plan/Problems-Billing Assessment: Mrs Rin Farah is an 82 year old F with PMH of pAfib(on Eliquis), "TIA"(but old right MCA infarct on CT here), hyperparathyroidism c/b hypercalcemia s/p resection June 2018, severe TVR, moderate MVR, HTN, CAD(no stents), thrombocytopenia; p/w confusion, tongue bite, urinary incontinence then observed tonic-clonic seizure in ED. s/p keppra load. Mentation and alertness have since waxed and waned. Initially Hyperammonia 100. MRI brain with evidence of 3mm SDH. - Patient Problems (1) Tonic clonic seizures Current Visit: Yes Status: Acute Code(s): G40.409 - OTH GENERALIZED EPILEPSY , NOT INTRACTABLE, W/O STAT EPI SNOMED Code(s): 210767786 Comment: - Witnessed by son-in-law who is a veterinary Neurologist at [place] [facility] [place]. - s/p Keppra 1000mg in ED and then 500mg IV BID, switched to Keppra PO . - EEG without clear epileptiform discharges. - Continue Neuro checks q4h. - No known history of seizures. Does have remote right MCA territory CVA on noncontast CT brain and MRI Brain (though severely motion artifact limited) showed 3mm SDH which could explain lower seizure threshold. Unclear which came first. - Seizure precautions. - Repeat CT 12/05/18 with no new changes. (2) Fever Current Visit: Yes Status: Acute Code(s): R50.9 - FEVER, UNSPECIFIED SNOMED Code(s): 842233308 Comment: - Developed first fever 12/02/18 so UA, CXR and BCx repeated - started on Ceftriaxone for possible aspiration on 12/02/18, added Flagyl 12/03. Plan to cont antibiotics x 7 days. - Blood cultures show no growth so far and Urine culture grew 75 000 colonies E. coli, with abnormal UA. Patient was asymptomatic, but due to AMS not a good historian. Ceftrixone will cover possible UTI. (3) Chronic atrial fibrillation Current Visit: Yes Status: Acute Code(s): I48.2 - CHRONIC ATRIAL FIBRILLATION * DO NOT USE * SNOMED Code(s): 508746481 Comment: - cChronic, rate controlled on Metoprolol tartrate 25mg PO BID. (4) Bilirubinemia Current Visit: Yes Status: Acute Code(s): E80.6 - OTHER DISORDERS OF BILIRUBIN METABOLISM SNOMED Code(s): 65802110 Comment: unconjugated bili up -differential includes Gilbert's or hemolysis , but pt is not developing anemia. Prince Kingsley's (5) Hand edema Current Visit: Yes Status: Acute Code(s): R60.0 - LOCALIZED EDEMA SNOMED Code(s): 899557397 Comment: - Pt's IV infiltated and IV access was discontinued on R side. As she has persistent symptoms, will check RUE doppler. (6) Hyperammonemia Current Visit: Yes Status: Acute Code(s): E72.20 - DISORDER OF UREA CYCLE METABOLISM, UNSPECIFIED SNOMED Code(s): 4051424 Comment: - s/p lactulose per rectum then po. 100 on admission, but down to 34 the next day. Unclear mechanism. - Lactulose stopped on 12/02/18, ammonia still WNL. 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 - urea cycle disorder that surfaces in stress in differential -will add Zinc (7) SDH (subdural hematoma) Current Visit: Yes Status: Acute Code(s): S06.5X9A - TRAUM SUBDR HEM W LOC OF UNSP DURATION, INIT SNOMED Code(s): 748197176 Comment: - Eliquis on hold, last dose 10/7 AM. As per d/w neurosurgery: pt is to be off anticoagulation x 2 weeks, then needs CT brain to document SDH is not worsening. If CT is acceptable, she should be started on Coumadin, or another anticoagulant that is easily reversible. (8) Severe mitral regurgitation Current Visit: Yes Status: Acute Code(s): I34.0 - NONRHEUMATIC MITRAL (VALVE ) INSUFFICIENCY SNOMED Code(s): 35673890 Comment: - Severe MR and TR on Echo. Dr Waddell d/w Cardiology - to f/u as outpatient. - MR may contribute to passive liver congestion, elevated bili and ammonia. (9) Spinal stenosis in cervical region Current Visit: Yes Status: Acute Code(s): M48.02 - SPINAL STENOSIS, CERVICAL REGION SNOMED Code(s): 61577419 Comment: CT c spine shows severe stenosis of C4-C5, chronic Once pt is improved in STR she should be evaluated by neurosurgery if she is a surgical candidate (10) DVT prophylaxis Current Visit: Yes Status: Acute Code(s): Z29.9 - ENCOUNTER FOR PROPHYLACTIC MEASURES, UNSPECIFIED SNOMED Code(s): 193786394 Comment: - Pharmacological prophylaxis contraindicated in the setting of SDH. - SCDs. (11) Hypocalcemia Current Visit: Yes Status: Acute Code(s): E83.51 - HYPOCALCEMIA SNOMED Code(s): 0829717 Comment: Replaced h/o parathyroidectomy on cinacalcet which can cause hypocalcemia pth checked in range and resolved will continue at 30 mg and can be adjusted if it is a problem hypocalcemia can lower seizure threshold Status and Disposition: Inpatient. Continue abx and medication titration. Anticipate d/c to [facility] early next week/ [place]?.
[2018-12-08] MEDS: cefTRIAXone(*) 1 GM in NS 0.9% 50 ML* 50 ML IVPB SCH (18:12)
[2018-12-08] MEDS: Atorvastatin* 40 MG TAB PO SCH (18:12)
[2018-12-09] MEDS: Metoprolol Tartrate TAB* 25 MG PO SCH ×2 (04:09→09:40)
[2018-12-09] MEDS: levETIRAcetam TAB* 500 MG PO SCH ×2 (04:09→09:39)
[2018-12-09] MEDS: metroNIDAZOLE IV 500 MG/100ML* 500 MG/100 ML BAG IVPB SCH (05:57)
[2018-12-09 06:55] LABS: ABS Eosinophils 0.2 10^3/ul (0-0.6); ABS Lymphocytes 0.9 10^3/ul (1.0-4.8); ABS Monocytes 0.7 10^3/ul (0-0.8); ABS Neutrophils 5.4 10^3/ul (1.5-7.7); Eosinophil % 2.8 %; Hematocrit 37 % (35-47); Hemoglobin 12.1 g/dL (12.0-16.0); Lymphocyte % 12.3 %; Mean Corpuscular HGB Conc 33 g/dL (31-36); Mean Corpuscular Hemoglobin 26 pg (27-31); Mean Corpuscular Volume 79 fL (80-97); Mean Platelet Volume 7.4 fL (7.4-10.4); Platelet Count 228 10^3/uL (150-450); Red Blood Count 4.66 10^6 /uL (3.70-4.87); Red Cell Distribution Width 18 % (10-15); White Blood Count 7.2 10^3/uL (3.5-10.8)
[2018-12-09 07:12] LABS: EGFR African American 67.6 (>60); EGFR Non-African American 55.9 (>60); Potassium 4.4 mmol/L (3.5-5.0)
--- NOTE | 2018-12-09 07:52 | PN ---
Subjective Date of Service: 12/09/18 Interval History: HD9 on 12/09 83 y/o F with PMH of parathyroidectomy, A-fin on eliquis, HTn, CKD, CAD, TIA, GERD presented with tonic clonic seizure, postictal confusion, incontinence and tongue bite. Hospital course complicated by aspiration pneumonitis and UTI. On keppra 500mg bID, ceftriaxone and flagyl(day7) No acute ovetnight events VS stable No complaint at present. No burning micturition or increased frequency. No cough Objective Active Medications: Acetaminophen (Tylenol Tab*) 650 mg PO Q8H PRN PRN Reason: FEVER/PAIN Last Admin: 12/05/18 20:36 Dose: 650 mg Atorvastatin Calcium (Lipitor*) 40 mg PO QPM [facility] Last Admin: 12/08/18 18:12 Dose: 40 mg Cinacalcet (Sensipar Tab*) 30 mg PO DAILY [facility] Last Admin: 12/08/18 09:05 Dose: 30 mg Hydralazine HCl (Apresoline Iv*) 10 mg IV SLOW PU Q2H PRN PRN Reason: alternate with lopressor Last Admin: 12/02/18 12:46 Dose: 10 mg Ceftriaxone Sodium 1 gm/ (Sodium Chloride) 50 mls @ 100 mls/hr IVPB Q24H [facility] Last Admin: 12/08/18 18:12 Dose: 100 mls/hr Metronidazole/Sodium Chloride (Flagyl 500 Mg Ivpb*) 500 mg in 100 mls @ 100 mls /hr IVPB Q8H [facility] Last Admin: 12/09/18 05:57 Dose: 100 mls/hr Levetiracetam (Keppra Tab*) 500 mg PO BID [facility] Last Admin: 12/09/18 04:09 Dose: Not Given Lidocaine (Xylocaine 2% Viscous*) 15 ml SWISH SPIT TID PRN PRN Reason: PAIN - MODERATE Last Admin: 12/08/18 10:10 Dose: 15 ml Lorazepam (Ativan Inj*) 1 mg IV PUSH Q5M PRN PRN Reason: seizure Magnesium Oxide (Magox 400 Tab*) 800 mg PO DAILY [facility] Last Admin: 12/08/18 09:05 Dose: 800 mg Metoprolol Tartrate (Lopressor Tab*) 25 mg PO BID [facility] Last Admin: 12/09/18 04:09 Dose: Not Given Metoprolol Tartrate (Lopressor Iv*) 5 mg IV Q2H PRN PRN Reason: Systolic Bp Greater Than:160 Miscellaneous (Ativan Pyxis House) 1 ea N/A .ATIVAN IV HOUSE PRN PRN Reason: SEIZURES Spironolactone (Aldactone Tab*) 25 mg PO DAILY [facility] Last Admin: 12/08/18 09:05 Dose: 25 mg Zinc Sulfate (Zinc-220 Cap*) 220 mg PO DAILY [facility] Last Admin: 12/08/18 09:05 Dose: 220 mg Vital Signs - 8 hr 12/09/18 04:15 Temperature 98.1 F Pulse Rate 88 Respiratory 20 Rate Blood Pressure 150/83 (mmHg) O2 Sat by Pulse 100 Oximetry Oxygen Devices in Use Now: None Exam: Patient is sitting on a chair with no acute distress. HEENT: Normocephalic and atraumatic Lungs: CLear with no added sounds Heart: S1/S2 heard with no murmur Abdomen: Soft, nondistended and nontender. Extremities: No swelling Neuro: ALert, oriented Result Diagrams: 12/09/18 06:31 12/09/18 06:31 Additional Lab and Data: Laboratory Results - last 24 hr 12/02/18 12/02/18 12/02/18 04:00 04:00 04:00 WBC 7.0 RBC 5.03 H Hgb 12.8 Hct 41 MCV 81 MCH 25 L MCHC 31 RDW 19 H Plt Count 174 MPV 7.6 Neut % (Auto) 79.1 Lymph % (Auto) 11.3 Lander % (Auto) 7.6 Eos % (Auto) 1.4 Baso % (Auto) 0.6 Absolute Neuts (auto) 5.6 Absolute Lymphs (auto) 0.8 L Absolute Monos (auto) 0.5 Absolute Eos (auto) 0.1 Absolute Basos (auto) 0.0 Absolute Nucleated RBC 0.0 Nucleated RBC % 0.1 Sodium 138 Potassium TNP Chloride 107 Carbon Dioxide 27 Anion Gap 4 BUN 11 Creatinine 1.05 H Est GFR ( Amer) 60.4 Est GFR (Non-Af Amer) 49.9 BUN/Creatinine Ratio 10.5 Glucose 85 Calcium 8.3 L Total Bilirubin 2.00 H Direct Bilirubin TNP Indirect Bilirubin TNP AST TNP ALT 18 Alkaline Phosphatase 62 Ammonia TNP Total Protein 6.0 L Albumin 3.5 Globulin 2.5 Albumin/Globulin Ratio 1.4 Urine Color Urine Appearance Urine pH Ur Specific [place] Urine Protein Urine Ketones Urine Blood Urine Nitrate Urine Bilirubin Urine Urobilinogen Ur Leukocyte Esterase Urine WBC (Auto) Urine RBC (Auto) Urine Bacteria Urine Glucose 12/02/18 12/02/18 12/02/18 05:05 05:05 05:55 WBC RBC Hgb Hct MCV MCH MCHC RDW Plt Count MPV Neut % (Auto) Lymph % (Auto) Lander % (Auto) Eos % (Auto) Baso % (Auto) Absolute Neuts (auto) Absolute Lymphs (auto) Absolute Monos (auto) Absolute Eos (auto) Absolute Basos (auto) Absolute Nucleated RBC Nucleated RBC % Sodium Potassium TNP TNP Chloride Carbon Dioxide Anion Gap BUN Creatinine Est GFR ( Amer) Est GFR (Non-Af Amer) BUN/Creatinine Ratio Glucose Calcium Total Bilirubin Direct Bilirubin TNP TNP Indirect Bilirubin AST TNP TNP ALT Alkaline Phosphatase Ammonia TNP Total Protein Albumin Globulin Albumin/Globulin Ratio Urine Color Urine Appearance Urine pH Ur Specific [place] Urine Protein Urine Ketones Urine Blood Urine Nitrate Urine Bilirubin Urine Urobilinogen Ur Leukocyte Esterase Urine WBC (Auto) Urine RBC (Auto) Urine Bacteria Urine Glucose 12/02/18 12/02/18 12/02/18 05:55 08:45 17:02 WBC RBC Hgb Hct MCV MCH MCHC RDW Plt Count MPV Neut % (Auto) Lymph % (Auto) Lander % (Auto) Eos % (Auto) Baso % (Auto) Absolute Neuts (auto) Absolute Lymphs (auto) Absolute Monos (auto) Absolute Eos (auto) Absolute Basos (auto) Absolute Nucleated RBC Nucleated RBC % Sodium 140 Potassium 3.6 Chloride 105 Carbon Dioxide 27 Anion Gap 8 BUN 10 Creatinine 1.04 H Est GFR ( Amer) 61.1 Est GFR (Non-Af Amer) 50.5 BUN/Creatinine Ratio 9.6 Glucose 72 Calcium 8.8 Total Bilirubin Direct Bilirubin Indirect Bilirubin AST ALT Alkaline Phosphatase Ammonia 37 Total Protein Albumin Globulin Albumin/Globulin Ratio Urine Color Yellow Urine Appearance Clear Urine pH 7.0 Ur Specific [place] 1.012 Urine Protein Negative Urine Ketones Negative Urine Blood 3+ A Urine Nitrate Negative Urine Bilirubin Negative Urine Urobilinogen Positive A Ur Leukocyte Esterase 1+ A Urine WBC (Auto) 3+(>20/hpf) A Urine RBC (Auto) 3+(>10/hpf) A Urine Bacteria Absent Urine Glucose Negative Microbiology and Other Data: Microbiology 12/01/18 11:34 Blood Venous Aerobic Blood Culture - Preliminary No Growth Day 1 12/01/18 11:34 Blood Venous Anaerobic Blood Culture - Preliminary No Growth Day 1 12/01/18 11:30 Blood Venous Aerobic Blood Culture - Preliminary No Growth Day 1 12/01/18 11:30 Blood Venous Anaerobic Blood Culture - Preliminary No Growth Day 1 11/30/18 18:10 Urine Urine Culture - Final No Growth (<1,000 CFU/mL) 12/01/18 01:00 Nasal Nasal Screen MRSA (PCR) - Final Mrsa Not Detected Assess/Plan/Problems-Billing Assessment: Mrs Rin Farah is an 82 year old F with PMH of pAfib(on Eliquis), "TIA"(but old right MCA infarct on CT here), hyperparathyroidism c/b hypercalcemia s/p resection June 2018, severe TVR, moderate MVR, HTN, CAD(no stents), thrombocytopenia; p/w confusion, tongue bite, urinary incontinence then observed tonic-clonic seizure in ED. s/p keppra load. Mentation and alertness have since waxed and waned. Initially Hyperammonia 100, resolved. MRI brain with evidence of 3mm SDH. - Patient Problems (1) Tonic clonic seizures Current Visit: Yes Status: Acute Code(s): G40.409 - OTH GENERALIZED EPILEPSY , NOT INTRACTABLE, W/O STAT EPI SNOMED Code(s): 015960172 Comment: -Asymptomatic now -on PO keppra 500 mg BID - keppra level pending -AC on hold because of SDH -will have to follow up with neurosurgery within 1 week and have repeat CT done for worsening of hematoma; and will decide on AC at that time (2) UTI (urinary tract infection) Current Visit: Yes Status: Acute Comment: -Resolved; asymptomatic - day 7 of ceftriaxone -Completed 7 day course of metronidazole for aspiration pneumonitis (3) SDH (subdural hematoma) Current Visit: Yes Status: Acute Code(s): S06.5X9A - TRAUM SUBDR HEM W LOC OF UNSP DURATION, INIT SNOMED Code(s): 195487780 Comment: - Eliquis on hold, last dose 10/7 AM. As per d/w neurosurgery: pt is to be off anticoagulation x 2 weeks, then needs CT brain to document SDH is not worsening. If CT is acceptable, she should be started on Coumadin, or another anticoagulant that is easily reversible. -Patient will follow with neurosurgery in 1 week (4) Bilirubinemia Current Visit: Yes Status: Acute Code(s): E80.6 - OTHER DISORDERS OF BILIRUBIN METABOLISM SNOMED Code(s): 25062350 Comment: unconjugated bili up -differential includes Gilbert's or hemolysis Hb is normal elevated total bilirubin with high indirect bilirubin (5) Chronic atrial fibrillation Current Visit: Yes Status: Acute Code(s): I48.2 - CHRONIC ATRIAL FIBRILLATION * DO NOT USE * SNOMED Code(s): 727338447 Comment: - cChronic, rate controlled on Metoprolol tartrate 25mg PO BID. (6) Hyperammonemia Current Visit: Yes Status: Acute Code(s): E72.20 - DISORDER OF UREA CYCLE METABOLISM, UNSPECIFIED SNOMED Code(s): 1956595 Comment: - resolved - Ammonia of 43 -Zinc level still pending - can f/u as outpatient (7) Severe mitral regurgitation Current Visit: Yes Status: Acute Code(s): I34.0 - NONRHEUMATIC MITRAL (VALVE ) INSUFFICIENCY SNOMED Code(s): 70825917 Comment: - Severe MR and TR on Echo. Dr Waddell d/w Cardiology - to f/u as outpatient. - MR may contribute to passive liver congestion, elevated bili and ammonia. (8) Spinal stenosis in cervical region Current Visit: Yes Status: Acute Code(s): M48.02 - SPINAL STENOSIS, CERVICAL REGION SNOMED Code(s): 50354479 Comment: CT c spine shows severe stenosis of C4-C5, chronic Once pt is improved in STR she should be evaluated by neurosurgery if she is a surgical candidate (9) DVT prophylaxis Current Visit: Yes Status: Acute Code(s): Z29.9 - ENCOUNTER FOR PROPHYLACTIC MEASURES, UNSPECIFIED SNOMED Code(s): 595980862 Comment: - Pharmacological prophylaxis contraindicated in the setting of SDH. - SCDs. (10) Full code status Current Visit: Yes Status: Acute Code(s): Z78.9 - OTHER SPECIFIED HEALTH STATUS SNOMED Code(s): 586969117 Status and Disposition: Inpatient. D/C today [facility] up with neurosurgery with prior CT Attending: Richard Cordon Attestation Documenting Resident: Haily Contreras Supervising Physician: Veto Cordon Attestation: This service has been performed in part by a resident under the direction of a teaching physician.I, Veto Cordon, performed the service, or was physically present during the critical, or house portions of the service, furnished by the resident. I participated in the management of the patient.
[2018-12-09] MEDS: Zinc Sulfate CAP* 220 MG PO SCH (09:40)
[2018-12-09] MEDS: Spironolactone TAB* 25 MG PO SCH (09:40)
[2018-12-09] MEDS: Magnesium Oxide TAB* 400 MG PO SCH (09:40)
[2018-12-09] MEDS: Cinacalcet TAB* 30 MG PO SCH (09:40)
--- NOTE | 2018-12-09 16:00 | DS ---
CC: Dr. Cruz; Dr. Michael Jose; Dr. Lennon; [facility] DATE OF ADMISSION: 11/30/2018. DATE OF DISCHARGE: 12/09/2018. PRIMARY DIAGNOSIS: New onset of seizures, generalized tonic clonic. SECONDARY DIAGNOSES: Subdural hematoma; history of right frontal stroke; chronic kidney disease, sta ge 2; atrial fibrillation; hypoparathyroidism, status post parathyroidectomy; history of asthma; hype rtension; hyperlipidemia; coronary artery disease; GERD; constipation. MEDICATIONS ON DISCHARGE: 1. Atorvastatin 40 mg p.o. q.p.m. 2. Cinacalcet 30 mg p.o. every other day. 3. Levetiracetam 500 mg p.o. b.i.d. 4. Acetaminophen 650 mg p.o. q.8 hours prn pain or fever. 5. Viscous Lidocaine 2% swish and spit t.i.d. prn. 6. Magnesium Oxide 400 mg p.o. b.i.d. 7. Metoprolol Tartrate 25 mg p.o. b.i.d. 8. Spironolactone 25 mg p.o. q.a.m. 9. Zinc Sulfate 220 mg p.o. daily. CONSULTATIONS: Dr. Hooks of Neurology. PROCEDURES: None. HOSPITAL COURSE: This is an 83-year-old woman with a history of A-fib who presented with confused an d witnessed seizure at home. She had a second witnessed seizure in the emergency department. Initia l work-up of new onset of seizures included head CT that showed chronic right frontal lobe MCA territ orial infarct. MRI of the brain on December 01 showed a 3 mm left parietal occipital subdural hematom a which was also seen on the CAT scan of the same day. The patient's anticoagulation was stopped. I t was unclear whether she hit her head at home due to her initial seizure or whether she hit her head at home at an unknown time and then developed a seizure as a result of a subdural hematoma. Another initial work- up showed normal CBC. Coagulation studies with an INR of 1.18. Her initial ammonia l evel was 100 which fell to [address] Hooks performed a Neurology consultation. He was quite sure the patient had seizures with postictal confusion and incontinence and tongue biting. The patient did have an EEG which was nonspecific, possibly due to administration of Ativan. Dr. Gemma schaefer was concerned that she could have had a new stroke on top of the old stroke causing the seizures. She was not a TPA candidate due to the fact that she was on Eliquis. He also discussed her ammonia l evel which was elevated initially, but then was recovered within 24 hours without intervention. The patient was started on Keppra and was seizure-free during the hospital stay. She had improving menta l status. The patient's recommendations from Neurology are to stay off anticoagulation for two weeks and repeat head CT again to assess for shrinkage or growth of the subdural hematoma. If the hematoma is stable or receding, the patient can be restarted on Warfarin which would be easily reversible if there is a ny future misadventures with anticoagulation. The patient's calcium was elevated in the past in August of this year at 10.4. The patient's calcium o n admission was 8.2 and her ionized calcium was 1.17 which is the low end of normal. Due to the pers isting low calcium, we cut her Cinacalcet in half. The calcium should be rechecked in a week or so a nd she could go back on daily Cinacalcet if necessary. Part of her low calcium is due to low normal albumin. The patient had an echocardiogram on December 03 which showed an ejection fraction at 55 percent rang e and trivial aortic insufficiency and aortic stenosis. OTHER LAB TESTS AND RADIOLOGY REPORTS OF INTEREST: The patient had a chest x-ray on December 02 that showed an enlarged cardiac silhouette. Liver ultrasound was completed on December 01 which showed s imple hepatic cysts and severe renal parenchymal disease. Head CT was reported on November 30, er , and December 04. The CT on the did not show any worsening of subdural. On December 06, the patient had swelling in her right arm. Ultrasound of the upper extremity showed no DVT. This f inding on the right arm was thought to be due to infiltration of an IV. DISPOSITION: To [facility]. CONDITION ON DISCHARGE: Improved. STATUS: Inpatient. DIET: Regular diet, soft consistency. ACTIVITY: As tolerated. Needs assistance due to risk of fall. FOLLOW-UP: Follow-up should be with Dr. Hooks in one to two weeks and she should have a CT scan wh ich was scheduled on December 13 at 11:00 a.m. She should also see Dr. Cruz for Neurosurgery consult as an outpatient and see her primary care doctor upon discharge from the snf. TIME SPENT: I spent more than 45 minutes with the patient today and discussing her with the resident and completing the necessary paperwork for discharge. [id number]/CPS #: [id number]
[2018-12-09 16:18] VITALS: BP 122/68
[2018-12-10 13:27] LABS: Zinc 0.54 mcg/mL (0.66-1.10)
[2018-12-11] MEDS ORDERED: Cinacalcet TAB* 30 MG PO SCH (11:00)
== END 2018-12-09 16:40 | DRG 100 ==
LOC: ED 17:54 → ICU 23:39 → MED 12-04 10:56
PROVIDERS: ADMIT Internal Medicine; ATTEND Internal Medicine
PROC: 4A00X4Z Measurement of Central Nervous Electrical Activity, External Approach (ICD-10-PCS; principal; 2018-12-02)
DX: G40.89 Other seizures (principal); S06.5X9A Traumatic subdural hemorrhage with loss of consciousness of unspecified duration, initial encounter; J69.0 Pneumonitis due to inhalation of food and vomit; E72.20 Disorder of urea cycle metabolism, unspecified; D68.9 Coagulation defect, unspecified; I48.20 Chronic atrial fibrillation, unspecified; N39.0 Urinary tract infection, site not specified; E89.2 Postprocedural hypoparathyroidism; J45.909 Unspecified asthma, uncomplicated; I12.9 Hypertensive chronic kidney disease with stage 1 through stage 4 chronic kidney disease, or unspecified chronic kidney disease; E78.5 Hyperlipidemia, unspecified; I25.10 Atherosclerotic heart disease of native coronary artery without angina pectoris; K21.9 Gastro-esophageal reflux disease without esophagitis; N18.2 Chronic kidney disease, stage 2 (mild); E83.51 Hypocalcemia; E83.42 Hypomagnesemia; T80.89XA Other complications following infusion, transfusion and therapeutic injection, initial encounter; Y84.8 Other medical procedures as the cause of abnormal reaction of the patient, or of later complication, without mention of misadventure at the time of the procedure; Y92.239 Unspecified place in hospital as the place of occurrence of the external cause; R60.0 Localized edema; M48.02 Spinal stenosis, cervical region; K59.00 Constipation, unspecified; I08.3 Combined rheumatic disorders of mitral, aortic and tricuspid valves; Z98.41 Cataract extraction status, right eye; Z98.42 Cataract extraction status, left eye; Z86.73 Personal history of transient ischemic attack (TIA), and cerebral infarction without residual deficits; Z88.1 Allergy status to other antibiotic agents
CPT/HCPCS: 36415; 70450; 70551; 71045; 72125; 76705; 80048; 80053; 80076; 80177; 81003; 81015; 82140; 82330; 82607; 82728; 82746; 83735; 83880; 83970; 84100; 84443; 84630; 85025; 85610; 86140; 87040; 87077; 87086; 87186; 87641; 93005; 93306; 95819; 99285; A9270-GY; G8978-GP-CK; G8978-GP-CL; G8978-GP-CM; G8979-GP-CI; G8979-GP-CJ; G8987-GO-CL; G8988-GO-CJ; J0360; J0610; J0696; J1953; J2060; J3475; J3480; J3490